=== PATIENT | male | born 1955 | race Hispanic/Latino ===

== ENCOUNTER 2018-03-05 10:44 | Observation (INO) | payer BC ==
[2018-03-05 10:54] VITALS: BMI 18.6
--- NOTE | 2018-03-05 11:12 | ED PDOC ---
Arrival/HPI - General Chief Complaint: Weakness/Neurological Deficit Time Seen by Provider: 03/05/18 10:50 Historian: Patient, Spouse - History of Present Illness Narrative History of Present Illness (Text): 03/05/18 11:00 62 year old male, whose PMH includes orthostatic hypotension, neuropathy, and ulcer colitis, who presents to the emergency department s/p syncope episode since prior to arrival. Patient reports he was using the bathroom and walked back to his room when he remembers waking up from the ground. Patient is currently complaining of right arm pain, left shoulder abrasion. and back side of head pain. Patient denies chest pain, shortness of breath, dizziness, nausea , vomiting, diarrhea, abdominal pain, hematuria, fever, or other complaints. PMD: Dr. Jones Mechanical Drafter: Dr. Diaz Neurologist: Dr. Swartz Urologist: Dr. Tomlinson Time/Duration: Prior to Arrival Symptom Onset: Sudden Context: Home Past Medical History - Provider Review Nursing Documentation Reviewed: Yes - Infectious Disease Hx of Infectious Diseases: None - Cardiac Hx Pacemaker: No - Pulmonary Hx Respiratory Disorders: No - Neurological Hx Neurological Disorder: No - HEENT Hx HEENT Disorder: No - Renal Hx Renal Disorder: No - Endocrine/Metabolic Hx Endocrine Disorders: No - Hematological/Oncological Hx Blood Transfusions: No Hx Blood Transfusion Reaction: No - Integumentary Hx Dermatological Disorder: No - Musculoskeletal/Rheumatological Hx Falls: No - Gastrointestinal Hx Gastrointestinal Disorders: No - Genitourinary/Gynecological Hx Genitourinary Disorders: No - Psychiatric Hx Substance Use: No - Anesthesia Hx Anesthesia Reactions: Yes (vomitting) Hx Malignant Hyperthermia: No - Suicidal Assessment Feels Threatened In Home Enviroment: No Family/Social History - Physician Review Nursing Documentation Reviewed: Yes Family/Social History: No Known Family HX Smoking Status: Former Smoker Hx Alcohol Use: No Hx Substance Use: No Allergies/Home Meds Allergies/Adverse Reactions: Allergies codeine Allergy (Intermediate, Verified 03/05/18 10:51) SWEATING,FEVERISH,VOMITING Home Medications: Home Meds Medication Instructions Recorded Confirmed Silodosin [Rapaflo] 8 mg PO DAILY 11/06/15 02/02/18 Prednisone [Apolonia] 5 mg PO DAILY 11/08/15 02/02/18 Review of Systems - Review of Systems Constitutional: absent: Fevers ENT: absent: Sinus Congestion Respiratory: absent: SOB Cardiovascular: Syncope. absent: Chest Pain Gastrointestinal: absent: Abdominal Pain, Vomiting Genitourinary Male: absent: Dysuria Musculoskeletal: Other (left shoulder abrasion, right arm pain, and back of head pain). absent: Back Pain Skin: absent: Rash Neurological: Headache. absent: Dizziness Physical Exam Vital Signs Reviewed: Yes Vital Signs Temp Pulse Resp BP Pulse Ox 03/05/18 13:49 92 H 18 132/72 100 03/05/18 11:33 97.7 F 85 18 119/85 97 03/05/18 11:04 119/85 03/05/18 10:45 97.9 F 86 20 100 Temperature: Afebrile Blood Pressure: Normal Pulse: Regular Respiratory Rate: Normal Appearance: Positive for: Well-Appearing, Non-Toxic, Comfortable Pain Distress: None Mental Status: Positive for: Alert and Oriented X 3 - Systems Exam Head: Present: Normocephalic, Tenderness (right sided tenderness with no ecchymosis). No: Ecchymosis Pupils: Present: PERRL Extroacular Muscles: Present: EOMI Conjunctiva: Present: Normal Mouth: Present: Moist Mucous Membranes Respiratory/Chest: Present: Clear to Auscultation, Good Air Exchange. No: Respiratory Distress, Accessory Muscle Use, Wheezes, Decreased Breath Sounds, Rales, Retracting, Rhonchi Cardiovascular: Present: Regular Rate and Rhythm, Normal S1, S2. No: Murmurs Abdomen: Present: Normal Bowel Sounds. No: Tenderness, Distention, Peritoneal Signs Upper Extremity: Present: Normal Inspection, Normal ROM, NORMAL PULSES, Neurovascularly Intact, Capillary Refill < 2s, Other (mild abrasion to left shoulder ). No: Cyanosis, Edema, Deformity Neurological: Present: GCS=15, CN II-XII Intact, Speech Normal, Motor Func Grossly Intact, Normal Sensory Function, Normal Cerebellar Funct, Memory Normal Skin: Present: Warm, Dry, Normal Color. No: Rashes Psychiatric: Present: Alert, Oriented x 3, Normal Insight, Normal Concentration Medical Decision Making ED Course and Treatment: 03/05/18 Impression: 62 year old male with right sided tenderness on head and mild abrasion on left shoulder complaining of syncope episode SONOGRAPHY TECHNICIAN. Differential Diagnosis included but are not limited to: Syncope: Vasovagal vs. Cardiac vs. Infectious Plan: -- EKG -- Chest X-ray -- Labs -- Urinalysis -- Reassess and disposition Progress Notes: EKG: Ordered, reviewed, and independently interpreted the EKG. Rate : 84 BPM Rhythm : NSR Interpretation : No ST-segment elevations or depressions, no T-wave inversions, normal intervals. 03/05/18 12:05 Chest X-ray: Impressions: No active disease 03/05/18 12:40 Patient is orthostatic positive. Will continue hydration. Case discussed with Dr. Diaz who is made aware of plan and agrees with admitting patient for observation for syncope. Case discussed with Dr. Mcpherson who will place on observation to her service. - Lab Interpretations Lab Results: 03/05/18 10:50 03/05/18 10:50 Lab Results 03/05/18 11:15: pO2 38, VBG pH 7.38, VBG pCO2 54.0, VBG HCO3 31.9 H, VBG Total CO2 33.6 H, VBG O2 Sat (Calc) 77.2 H, VBG Base Excess 5.3 H, VBG Potassium 4.1, Glucose 99, Lactate 1.8, FiO2 21.0, Sodium 138.0, Chloride 105.0, Venous Blood Potassium 4.1 03/05/18 10:55: POC Glucose (mg/dL) 111 H 03/05/18 10:50: Sodium 142, Potassium 4.8, Chloride 102, Carbon Dioxide 31, Anion Gap 14, BUN 10, Creatinine 0.7 L, Est GFR ( Amer) > 60, Est GFR ( Non-Af Amer) > 60, Random Glucose 122 H, Calcium 8.8, Magnesium 2.0, Total Bilirubin 0.6, AST 17 D, ALT 16, Alkaline Phosphatase 87, Lactate Dehydrogenase 390, Total Creatine Kinase 29 L, Troponin I < 0.01, Total Protein 6.4, Albumin 3.6, Globulin 2.8, Albumin/Globulin Ratio 1.3 03/05/18 10:50: PT 12.9 H, INR 1.12 H, APTT 29.6 03/05/18 10:50: WBC 4.6, RBC 4.43, Hgb 13.0 L, Hct 37.3 L, MCV 84.2, MCH 29.3, MCHC 34.9, RDW 13.4, Plt Count 179, MPV 9.3, Gran % 68.5 H, Lymph % (Auto) 25.3 , [place] % (Auto) 4.5, Eos % (Auto) 1.5, Baso % (Auto) 0.2, Gran # 3.16, Lymph # ( Auto) 1.2, [place] # (Auto) 0.2, Eos # (Auto) 0.1, Baso # (Auto) 0.01 I have reviewed the lab results: Yes - RAD Interpretation Radiology Orders: 03/05/18 11:03 CHEST PORTABLE [RAD] Stat Spinner Frame: Radiologist - EKG Interpretation Interpreted by ED Physician: Yes Type: 12 lead EKG - Medication Orders Current Medication Orders: Acetaminophen (Tylenol 325mg Tab) 650 mg PO Q6H PRN PRN Reason: Pain, Mild (1-3) Ondansetron HCl (Zofran Inj) 4 mg IVP Q4H PRN PRN Reason: Nausea/Vomiting Discontinued Medications Acetaminophen (Tylenol 325mg Tab) 650 mg PO STAT STA Stop: 03/05/18 11:24 Last Admin: 03/05/18 11:27 Dose: 650 mg MAR Pain/Vitals Document 03/05/18 11:27 [facility] (Rec: 03/05/18 11:28 [facility] [id number]) Pain Reassessment Is This A Pain ReAssessment? No Sleep Is patient sleeping during reassessment? No Presence of Pain Presence of Pain Yes Pain Scale Used Pain Scale Used Numeric Location Pain Location Body Site Shoulder Intensity 3 Scale Used Numeric Sodium Chloride (Sodium Chloride 0.9%) 1,000 mls @ 999 mls/hr IV .Q1H1M STA Stop: 03/05/18 13:45 Last Admin: 03/05/18 12:54 Dose: 999 mls/hr eMAR Start Stop Document 03/05/18 12:54 [facility] (Rec: 03/05/18 12:54 [facility] [id number]) Intravenous Solution Start Date 03/05/18 Start Time 12:54 End Date 03/05/18 End time 13:55 Total Infusion Time 61 - Scribe Statement The provider has reviewed the documentation as recorded by the Garcia Moscoso Provider Scribe Attestation: All medical record entries made by the Scribe were at my direction and personally dictated by me. I have reviewed the chart and agree that the record accurately reflects my personal performance of the history, physical exam, medical decision making, and the department course for this patient. I have also personally directed, reviewed, and agree with the discharge instructions and disposition. Disposition/Present on Arrival - Present on Arrival Any Indicators Present on Arrival: No History of DVT/PE: No History of Uncontrolled Diabetes: No Urinary Catheter: No History of Decub. Ulcer: No History Surgical Site Infection Following: None - Disposition Have Diagnosis and Disposition been Completed?: Yes Diagnosis: Syncope Disposition: HOSPITALIZED Disposition Time: 12:41 Patient Plan: Observation Patient Problems: Current Active Problems Problem Status Onset Syncope Acute Condition: FAIR
[2018-03-05 11:18] LABS: BASO # 0.01 K/mm3 (0.0-2.0); BASO % 0.2 % (0.0-3.0); EOS # 0.1 (0.0-0.7); EOS % 1.5 % (1.5-5.0); GRAN # 3.16 (1.4-6.5); GRAN % 68.5 % (50.0-68.0); LYMPH # 1.2 (1.2-3.4); LYMPH % 25.3 % (22.0-35.0); MEAN CELL VOLUME 84.2 fl (80.0-105.0); MEAN CORPUSCULAR HEMOGLOBIN 29.3 pg (25.0-35.0); MEAN CORPUSCULAR HGB CONC 34.9 g/dl (31.0-37.0); MEAN PLATELET VOLUME 9.3 fl (7.0-11.0); MONO # 0.2 (0.1-0.6); MONO % 4.5 % (1.0-6.0); RBC 4.43 10^6/uL (3.5-6.1); RED CELL DISTRIBUTION WIDTH 13.4 % (11.5-14.5); WHITE BLOOD COUNT 4.6 10^3/ul (4.5-11.0)
[2018-03-05 11:28] LABS: VENOUS BLOOD GAS BASE EXCESS 5.3 mmol/L (0.0-2.0); VENOUS BLOOD GAS PO2 38 mm/Hg (30-55); VENOUS BLOOD PH 7.38 (7.32-7.43)
[2018-03-05 11:29] LABS: INR 1.12 (0.93-1.08); PARTIAL THROMBOPLASTIN TIME 29.6 Seconds (25.1-36.5); PROTHROMBIN TIME 12.9 SECONDS (9.4-12.5)
[2018-03-05 11:33] LABS: ALB/GLOB RATIO 1.3 (1.1-1.8); ALBUMIN 3.6 g/dL (3.0-4.8); ALT/SGPT 16 U/L (7-56); AST/SGOT 17 U/L (17-59); BLOOD UREA NITROGEN 10 mg/dL (7-21); CALCIUM 8.8 mg/dL (8.4-10.5); GFR AFRICAN-AMERICAN > 60; GFR NON-AFRICAN AMERICAN > 60
[2018-03-05 11:44] LABS: TROPONIN I < 0.01 ng/mL
--- NOTE | 2018-03-05 12:06 | RAD ---
Date of service: 03/05/2018 HISTORY: syncope COMPARISON: No prior. FINDINGS: LUNGS: No active pulmonary disease. PLEURA: No significant pleural effusion identified, no pneumothorax apparent. CARDIOVASCULAR: Normal. OSSEOUS STRUCTURES: No significant abnormalities. VISUALIZED UPPER ABDOMEN: Normal. OTHER FINDINGS: None. IMPRESSION: No active disease.
[2018-03-05] MEDS ORDERED: Sodium Chloride 0.9% 1,000 ML IV STA (12:45)
--- NOTE | 2018-03-05 14:37 | CT ---
Date of service: 03/05/2018 PROCEDURE: CT HEAD WITHOUT CONTRAST. HISTORY: head injury COMPARISON: None available. TECHNIQUE: Axial computed tomography images were obtained through the head/brain without intravenous contrast. Radiation dose: Total exam DLP = 842 mGy-cm. This CT exam was performed using one or more of the following dose reduction techniques: Automated exposure control, adjustment of the mA and/or kV according to patient size, and/or use of iterative reconstruction technique. FINDINGS: HEMORRHAGE: No intracranial hemorrhage. BRAIN: No mass effect or edema. No atrophy or chronic microvascular ischemic changes. VENTRICLES: Unremarkable. No hydrocephalus. CALVARIUM: Unremarkable. PARANASAL SINUSES: There is a minimally displaced fracture of the posterior wall of the left maxillary sinus. There is a fluid level within the sinus. MASTOID AIR CELLS: Chronic right-sided mastoiditis OTHER FINDINGS: None. IMPRESSION: No acute intracranial findings. Fracture of the posterior wall of the left maxillary sinus with blood in the sinus
--- NOTE | 2018-03-05 15:53 | CP.PCM.HP ---
<Eugene Herrera - Last Filed: 03/06/18 15:30> History of Present Illness - History of Present Illness History of Present Illness: 62 y o male PMhx orthostatic hypotension, neuropathy, ulcerative colitis, prostate cancer, presents to the ED with his s/p fall. Pt states that he was home alone and was rising from the toilet after going to the bathroom. Pt states he was walking across to his bedroom and felt dizzy and thus fell forward on the L side of his face, hitting his head. Pt states that he lost consciousness for a few seconds. After incident, pt states he got up, called his who was 2 blocks away, and she thus came home and brought him to ED. Pt 's states that pt has been falling more frequently, and that this is his 4th fall this month. Pt was recently admitted to [facility] in January 2018 for dehydration. Pt has abrasion on L maxillary area, and upper L shoulder, and had nose bleed. Pt states he feels ok, denies any acute complaints. Pt's states that pt has been more fatigued lately over the past several mos. Pt was recently seen in clinic by PMD yesterday for cloudy, foul-smelling urine, and was given Ciprofloxacin to complete for 7 days, pt has been taking medication since yesterday. Pt denies headache, vision changes, tinnitus, fever, chills, chest pain, sob, n/v/d/c, abd pain, burning with urination, urinary frequency, or other symptoms. PMD: Dr. Houser GI: Dr. Beltran Neurology: Dr. Swartz Urologist: Dr. Tomlinson PMhx: Orthostatic hypotension, neuropathy, ulcerative colitis, prostate cancer PSurgHx: none Allergies: codeine Meds: Fludrocortisone, Ciprofloxacin, Mesalamine (rest unknown by pt and ) Fam hx: reviewed but not pertinent to hx Soc hx: former smoker, denies alcohol and illegal drug use 12 point ROS done and negative, otherwise as per HPI. Present on Admission - Present on Admission Any Indicators Present on Admission: No Review of Systems - Constitutional Constitutional: As Per HPI - EENT Eyes: absent: As Per HPI, Blind Spots, Blurred Vision, Change in Vision, Decreased Night Vision, Diplopia, Discharge, Dry Eye, Exophthalmos, Floaters, Irritation, Itchy Eyes, Loss of Peripheral Vision, Pain, Photophobia, Requires Corrective Lenses, Sees Flashes, Spots in Vision, Tunnel Vision, Other Visual Disturbances, Loss of Vision, Other Nose/Mouth/Throat: absent: As Per HPI, Epistaxis, Nasal Congestion, Nasal Discharge, Nasal Obstruction, Nasal Trauma, Nose Pain, Post Nasal Drip, Sinus Pain, Sinus Pressure, Bleeding Gums, Change in Voice, Dental Pain, Dry Mouth, Dysphagia, Halitosis, Hoarsness, Lip Swelling, Mouth Lesions, Mouth Pain, Odynophagia, Sore Throat, Throat Swelling, Tongue Swelling, Facial Pain, Neck Pain, Neck Mass, Other - Cardiovascular Cardiovascular: absent: As Per HPI, Acrocyanosis, Chest Pain, Chest Pain at Rest , Chest Pain with Activity, Claudication, Diaphoresis, Dyspnea, Dyspnea on Exertion, Edema, Irregular Heart Rhythm, Pain Radiating to Arm/Neck/Jaw, Leg Edema, Leg Ulcers, Lightheadedness, Orthopnea, Palpitations, Paroxysmal Nocturnal Dyspnea, Pedal Edema, Radiating Pain, Rapid Heart Rate, Slow Heart Rate, Syncope, Other - Respiratory Respiratory: absent: As Per HPI, Cough, Dyspnea, Hemoptysis, Dyspnea on Exertion , Wheezing, Snoring, Stridor, Pain on Inspiration, Chest Congestion, Excessive Mucous Production, Change in Mucous Color, Pain with Coughing, Other - Gastrointestinal Gastrointestinal: absent: As Per HPI, Abdominal Pain, Belching, Bloating, Change in Bowel Habits, Change in Stool Character, Coffee Ground Emesis, Constipation, Cramping, Diarrhea, Dyspepsia, Dysphagia, Early Satiety, Excessive Flatus, Fecal Incontinence, Heartburn, Hematemesis, Hematochezia, Loose Stools, Melena, Nausea, Odynophagia, Temesmus, Vomiting, Other Past Patient History - Infectious Disease Hx of Infectious Diseases: None - Past Social History Smoking Status: Former Smoker - CARDIAC Hx Pacemaker: No - PULMONARY Hx Respiratory Disorders: No - NEUROLOGICAL Hx Neurological Disorder: No - HEENT Hx HEENT Problems: No - RENAL Hx Chronic Kidney Disease: No - ENDOCRINE/METABOLIC Hx Endocrine Disorders: No - HEMATOLOGICAL/ONCOLOGICAL Hx Blood Transfusions: No Hx Blood Transfusion Reaction: No - INTEGUMENTARY Hx Dermatological Problems: No - MUSCULOSKELETAL/RHEUMATOLOGICAL Hx Falls: No - GASTROINTESTINAL Hx Gastrointestinal Disorders: No - GENITOURINARY/GYNECOLOGICAL Hx Genitourinary Disorders: No - PSYCHIATRIC Hx Substance Use: No - SURGICAL HISTORY Hx Surgeries: No - ANESTHESIA Hx Anesthesia Reactions: Yes (vomitting) Hx Malignant Hyperthermia: No Meds Allergies/Adverse Reactions: Allergies Allergy/AdvReac Type Severity Reaction Status Date / Time codeine Allergy Intermediate SWEATING,FE Verified 03/05/18 10:51 VERISH,VOMI TING Physical Exam - Constitutional Appears: Non-toxic, No Acute Distress, Older Than Stated Age - Head Exam Head Exam: ATRAUMATIC, NORMAL INSPECTION - ENT Exam ENT Exam: Mucous Membranes Moist, Normal Oropharynx Additional comments: Abrasion noted to L maxilla - Neck Exam Neck exam: Positive for: Full Rom, Normal Inspection Additional comments: Abrasion noted to left shoulder - Respiratory Exam Respiratory Exam: Clear to Auscultation Bilateral, NORMAL BREATHING PATTERN - Cardiovascular Exam Cardiovascular Exam: REGULAR RHYTHM, +S1, +S2 - GI/Abdominal Exam GI & Abdominal Exam: Normal Bowel Sounds, Soft - Extremities Exam Extremities exam: Positive for: normal capillary refill, normal inspection, pedal pulses present - Back Exam Back exam: FULL ROM, NORMAL INSPECTION - Neurological Exam Neurological exam: Alert, CN II-XII Intact, Normal Gait, Oriented x3, Reflexes Normal Additional comments: Motor and sensation intact, no tremor noted, neg Romberg sign, no dysmetria b/l - Psychiatric Exam Psychiatric exam: Normal Affect, Normal Mood - Skin Skin Exam: Dry, Intact, Normal Color, Warm Results - Vital Signs Recent Vital Signs: Last Vital Signs Temp 97.7 F 03/05/18 11:33 Pulse 92 H 03/05/18 13:49 Resp 18 03/05/18 13:49 BP 132/72 03/05/18 13:49 Pulse Ox 100 03/05/18 13:49 - Labs Result Diagrams: 03/06/18 06:20 03/06/18 06:20 Assessment & Plan - Assessment and Plan (Free Text) Assessment: 62 y o male PMhx orthostatic hypotension, neuropathy, ulcerative colitis, prostate cancer, presents to the ED with his s/p fall. Plan: Syncopal episode s/p fall Likely 2/2 pt's hx of orthostatic hypotension Not likely 2/2 seizure due to no post-ictal state reported, no reported jerking movement Not likely 2/2 CVA/TIA due to no focal deficits on neuro exam, no deficits noted during episode Unable to get orthostatic hypotension on vitals in ED due to pt being hydrated with IVF Cardio consulted: gerard Garcia appreciated Pending carotid doppler Vitals stable, pt asymptomatic at this time, continue to monitor CT head negative for acute bleed C/w fludrocortisone 0.1 mg daily F/u PT and OT Maxillary sinus fx CT head: minimally displaced fx of posterior wall of L maxillary sinus ED contacted [facility] for OMFS consult: ED attending spoke with OMFS resident Dr. Magdaleno, who is aware of the pt and recommended 1 wk f/u as outpatient after hospital d/c Pt asymptomatic in affected area, continue to monitor Hx UTI U/a pending Hx ulcerative colitis C/w home med apriso mesalamine 0.375 g daily DVT ppx/SCDs: Protonix/Lovenox Pt seen, examined with, and plan d/w Dr. Flores, attending Eugene Herrera DO PGY-1, Supervisor Dials Pager #[phone] <Bryanna Flores - Last Filed: 03/07/18 15:01> Results - Vital Signs Recent Vital Signs: Last Vital Signs Temp 98 F 03/07/18 12:00 Pulse 88 03/07/18 14:00 Resp 17 03/07/18 12:00 BP 141/87 03/07/18 12:00 Pulse Ox 95 03/07/18 06:00 - Labs Result Diagrams: 03/07/18 06:30 03/07/18 06:45 Labs: Laboratory Results - last 24 hr 03/07/18 03/07/18 06:30 06:45 WBC 4.3 L RBC 3.56 Hgb 10.5 L Hct 29.8 L MCV 83.7 MCH 29.5 MCHC 35.2 RDW 13.3 Plt Count 135 MPV 9.4 Gran % 60.6 Lymph % (Auto) 30.0 [place] % (Auto) 6.6 H Eos % (Auto) 2.6 Baso % (Auto) 0.2 Gran # 2.58 Lymph # (Auto) 1.3 [place] # (Auto) 0.3 Eos # (Auto) 0.1 Baso # (Auto) 0.01 Sodium 141 Potassium 3.7 Chloride 108 H Carbon Dioxide 28 Anion Gap 9 L BUN 5 L Creatinine 0.6 L Est GFR ( Amer) > 60 Est GFR (Non-Af Amer) > 60 Random Glucose 90 Calcium 7.8 L Phosphorus 3.1 Magnesium 1.9 Total Bilirubin 0.6 AST 17 ALT 25 Alkaline Phosphatase 69 Total Protein 5.2 L Albumin 2.7 L Globulin 2.5 Albumin/Globulin Ratio 1.1 Attending/Attestation - Attestation I have personally seen and examined this patient.: Yes I have fully participated in the care of the patient.: Yes I have reviewed all pertinent clinical information: Yes Notes (Text): 03/07/18 14:55 Medical record note made by the resident after discussion with my direction and input after the patient was personally seen and examined by me. I have reviewed the chart and agree that the record accurately reflects by personal performance of the history, physical exam, data review, and medical decision-making, in the course for the patient. I have also personally directed the plan of care. 62 y o male PMH orthostatic hypotension, neuropathy, ulcerative colitis, prostate cancer, and non compliance with medication , presents to the ED with his wifewith history of fall and lose of consciousness. Pt states that he was home alone and was rising from the toilet after going to the bathroom.There nis no focal deficit.CT scan of head is negative.The etiology is likely due to orthostatic hypotension. We will admit patient in telemetery, will monitor Neuri check , will repeat orthostatic.We will also get physical therapy evaluation.
[2018-03-05] MEDS: Sodium Chloride 0.9% 1,000 ML IV SCH (16:22)
[2018-03-05] MEDS ORDERED: Pneumococcal 23-Valent Vaccine IM ONE (17:21)
--- NOTE | 2018-03-05 17:31 | CARD ---
APPROVED REPORT Date of service: 03/05/2018 EKG Measurement Heart [id number] <Conclusion> Sinus rhythm with premature atrial complexes Otherwise normal ECG
--- NOTE | 2018-03-06 00:45 | CON ---
DATE: 03/05/2018 HISTORY OF PRESENT ILLNESS: The patient in room 267, bed 2. REASON FOR CONSULTATION: Multiple falls and syncope, postural hypotension, history of neuropathy and colitis. HISTORY OF PRESENT ILLNESS: The patient is a 62-year-old male, known case of colitis and neuropathy. He had multiple falls in recent days and today also he had syncopal episode. The patient denies any chest pain, shortness of breath, palpitation with these episodes. The patient states when he stands up, he feels very dizzy and unsteady walk. The patient has history of prostate laser surgery for enlarged prostate, but recently also was found to have abnormal nodule on the prostate for which biopsy is being planned. PAST MEDICAL HISTORY: Positive for colitis, neuropathy. Recently, the patient was found to have postural hypotension. The patient had multiple falls, prostate laser surgery for enlarged prostate. PERSONAL HISTORY: Used to smoke 2 packs until 20 years ago. Denies drinking. ALLERGIES: THE PATIENT IS ALLERGIC TO CODEINE. PHYSICAL EXAMINATION: VITAL SIGNS: Blood pressure 132/72, respirations 18, pulse 85, temperature 97.7. I took blood pressure in three positions. The patient's blood pressure lying down 132/78, sitting 101/67, standing 76/41 and the patient unsteady and dizzy. HEENT: Eyes: Pupils normal. Conjunctivae normal. Nose and throat normal. NECK: JVP low. Carotid equal. Thorax AP diameter normal. LUNGS: Clear. CARDIOVASCULAR: S1, S2. ABDOMEN: Soft, nontender. No organomegaly. Bowel sounds normal. EXTREMITIES: No clubbing, no cyanosis. LABORATORY DATA: WBC 4.6, hemoglobin 13, hematocrit 37.3, platelet 179. Sodium 142, potassium 4.8, BUN 10, creatinine 0.7, random sugar 111. Another random sugar 122. Troponin less than 0.01. Total protein and albumin normal. Chest x-ray: No active disease. EKG shows sinus rhythm. CAT scan of the head shows fracture of the posterior wall of the left maxillary sinus with blood in the sinus. DIAGNOSES: Severe postural hypotension, multiple falls and syncopal episodes, history of colitis, neuropathy. On CAT scan, fracture of the left maxillary sinus. Nodule on the prostate, history of laser surgery for enlarged prostate in the past. The patient was also told to have borderline diabetes. PLAN: We will start the patient on normal saline at 100 mL an hour and we will start on Florinef 0.2 mg p.o. stat and daily. We will monitor heart rate and blood pressure in 3 positions everyday and we will follow with you. Echo has been already ordered. Bryanna Osuna MD
[2018-03-06] MEDS: Sodium Chloride 0.9% 1,000 ML IV SCH ×4 (02:21→21:46)
[2018-03-06 07:03] LABS: BASO # 0.02 K/mm3 (0.0-2.0); BASO % 0.4 % (0.0-3.0); EOS # 0.1 (0.0-0.7); EOS % 1.6 % (1.5-5.0); GRAN # 3.24 (1.4-6.5); GRAN % 66.2 % (50.0-68.0); HEMOGLOBIN 10.9 g/dL (14.0-18.0); LYMPH # 1.2 (1.2-3.4); LYMPH % 25.3 % (22.0-35.0); MEAN CELL VOLUME 84.5 fl (80.0-105.0); MEAN CORPUSCULAR HEMOGLOBIN 29.1 pg (25.0-35.0); MEAN CORPUSCULAR HGB CONC 34.4 g/dl (31.0-37.0); MEAN PLATELET VOLUME 9.5 fl (7.0-11.0); MONO # 0.3 (0.1-0.6); MONO % 6.5 % (1.0-6.0); RBC 3.75 10^6/uL (3.5-6.1); RED CELL DISTRIBUTION WIDTH 13.3 % (11.5-14.5); WHITE BLOOD COUNT 4.9 10^3/ul (4.5-11.0)
[2018-03-06 07:26] LABS: ALB/GLOB RATIO 1.1 (1.1-1.8); ALBUMIN 2.8 g/dL (3.0-4.8); ALT/SGPT 21 U/L (7-56); AST/SGOT 17 U/L (17-59); BLOOD UREA NITROGEN 8 mg/dL (7-21); CALCIUM 7.9 mg/dL (8.4-10.5); GFR AFRICAN-AMERICAN > 60; GFR NON-AFRICAN AMERICAN > 60; HDL CHOLESTEROL 37 mg/dL (29-60); LDL CHOLESTEROL 63 mg/dL (0-129)
--- NOTE | 2018-03-06 16:25 | US ---
PROCEDURE: Bilateral carotid artery duplex ultrasound HISTORY: Carotid stenosis PHYSICIAN(S): Michael Watson MD. TECHNIQUE: Duplex sonography and color-flow Doppler were used to evaluate the carotid bifurcations and limited segments of the vertebral arteries bilaterally. FINDINGS: There is mild smooth heterogeneous plaque noted at the carotid bifurcations bilaterally. The peak systolic velocity in the proximal right internal carotid artery is 69 cm/sec. This corresponds to a 20 to 39% proximal right ICA stenosis. Normal systolic velocities are noted in the proximal right external carotid artery. There is antegrade flow in the right vertebral artery. The peak systolic velocity in the proximal left internal carotid artery is 70 cm/sec. This corresponds to a 20 to 39% proximal left ICA stenosis. Normal systolic velocities are noted in the proximal left external carotid artery. There is antegrade flow in the left vertebral artery. IMPRESSION: 1. Bilateral 20-39% proximal ICA stenoses. 2. Antegrade flow in both vertebral arteries.
--- NOTE | 2018-03-06 17:17 | CP.PCM.PN ---
<Arvin Chan - Last Filed: 03/06/18 16:57> Subjective - Date & Time of Evaluation Date of Evaluation: 03/06/18 Time of Evaluation: 16:57 - Subjective Subjective: Arvin Chan DO - PGY1 IM Assistant Education Director - Medicine Progress Note Patient was seen this Am at bedside; stable voicing no complaints. Did not complain of any episodes of dizziness throughout day; however did c/o nausea in the AM. Remainder ROS negative. Later in evening pt. was vocalizing that he was ready to leave; explained to patient he was not medically stable for DC given his orthostatic findings; and his high risk for fall. Pt. Family member and Nurse Scott were present at bedside as well. Objective - Vital Signs/Intake and Output Vital Signs (last 24 hours): Temp Pulse Resp BP Pulse Ox 98.5 F 78 20 75/45 L 97 03/06/18 11:46 03/06/18 14:00 03/06/18 11:46 03/06/18 11:46 03/06/18 00:01 Intake and Output: 03/06/18 03/06/18 06:59 18:59 Intake Total 180 Output Total 50 Balance 130 - Medications Medications: Current Medications Acetaminophen (Tylenol 325mg Tab) 650 mg PO Q6H PRN PRN Reason: Pain, Mild (1-3) Famotidine (Pepcid) 40 mg PO HS [facility] Last Admin: 03/05/18 21:35 Dose: 40 mg Fludrocortisone Acetate (Florinef) 0.2 mg PO DAILY [facility] Last Admin: 03/06/18 10:31 Dose: 0.2 mg Sodium Chloride (Sodium Chloride 0.9%) 1,000 mls @ 100 mls/hr IV .Q10H [facility] Last Admin: 03/06/18 12:23 Dose: 100 mls/hr Midodrine (Proamatine) 5 mg PO BID [facility] Mesalamine [Apriso] ((Home Med)) 4 cap PO DAILY [facility] Ondansetron HCl (Zofran Inj) 4 mg IVP Q4H PRN PRN Reason: Nausea/Vomiting - Labs Labs: 03/06/18 06:20 03/06/18 06:20 PT 12.9 SECONDS (9.4-12.5) H 03/05/18 10:50 INR 1.12 (0.93-1.08) H 03/05/18 10:50 APTT 29.6 Seconds (25.1-36.5) 03/05/18 10:50 - Constitutional Appears: Well, Non-toxic, No Acute Distress - Head Exam Head Exam: ATRAUMATIC, NORMOCEPHALIC - ENT Exam ENT Exam: Mucous Membranes Moist, Normal Exam - Respiratory Exam Respiratory Exam: Clear to Ausculation Bilateral, NORMAL BREATHING PATTERN. absent: Rhonchi, Wheezes, Respiratory Distress - Cardiovascular Exam Cardiovascular Exam: RRR, +S1, +S2 - GI/Abdominal Exam GI & Abdominal Exam: Soft. absent: Tenderness - Extremities Exam Extremities Exam: Normal Inspection Additional comments: TP/DP 1+ BL - Neurological Exam Neurological Exam: Alert, Awake, CN II-XII Intact, Oriented x3 Additional comments: Fine intention tremor noted; mild dysmetria on finger to nose testing BL - Psychiatric Exam Psychiatric exam: Normal Affect, Normal Mood - Skin Skin Exam: Dry, Intact, Warm Assessment and Plan - Assessment and Plan (Free Text) Assessment: 62 y o male PMhx orthostatic hypotension, neuropathy, ulcerative colitis, prostate cancer, presents to the ED with his s/p fall. Plan: Fall 2/[address] head negative for acute bleed Bedside Orthostatics postive: [id number] Carotid Doppler - 20-39% stenosis BL; Anterograde vertebral artery flow Vitals stable; pt. remains asymptomatic throughout day; Pt. started on 0.2mg Fludrocortisone as per cardiology Resumed pt. Midodrine 5mg BID Pt. ambulated well throughout the unit w/ no c/o dizziness or unsteadiness Cont IVF NS 100mls/ hr Echo Report pending Cardio Following Dr. Osuna Maxillary sinus fx CT head: minimally displaced fx of posterior wall of L maxillary sinus ED contacted [facility] for OMFS consult: ED attending spoke with OMFS resident Dr. Magdaleno, who is aware of the pt and recommended 1 wk f/u as outpatient after hospital d/c Pt asymptomatic in affected area, continue to monitor Hx UTI U/a pending Hx ulcerative colitis C/w home med apriso mesalamine 0.375 g daily DVT/ GI PPX: SCD/ Famotidine DISPO: Once medically optimized, pt. to be discharged to home w/ home PT Pt seen, examined with, and plan d/w Dr. Flores, attending <Bryanna Flores - Last Filed: 03/07/18 15:04> Objective - Vital Signs/Intake and Output Vital Signs (last 24 hours): Temp Pulse Resp BP Pulse Ox 98 F 88 17 141/87 95 03/07/18 12:00 03/07/18 14:00 03/07/18 12:00 03/07/18 12:00 03/07/18 06:00 Intake and Output: 03/07/18 03/07/18 06:59 18:59 Intake Total 1380 Balance 1380 - Medications Medications: Current Medications Acetaminophen (Tylenol 325mg Tab) 650 mg PO Q6H PRN PRN Reason: Pain, Mild (1-3) Famotidine (Pepcid) 40 mg PO HS [facility] Last Admin: 03/06/18 21:45 Dose: 40 mg Fludrocortisone Acetate (Florinef) 0.2 mg PO DAILY [facility] Last Admin: 03/07/18 10:00 Dose: 0.2 mg Sodium Chloride (Sodium Chloride 0.9%) 1,000 mls @ 100 mls/hr IV .Q10H [facility] Last Admin: 03/07/18 07:54 Dose: 100 mls/hr Midodrine (Proamatine) 5 mg PO BID [facility] Last Admin: 03/07/18 10:00 Dose: 5 mg Mesalamine [Apriso] ((Home Med)) 4 cap PO DAILY [facility] Last Admin: 03/07/18 10:04 Dose: Not Given Ondansetron HCl (Zofran Inj) 4 mg IVP Q4H PRN PRN Reason: Nausea/Vomiting - Labs Labs: 03/07/18 06:30 03/07/18 06:45 PT 12.9 SECONDS (9.4-12.5) H 03/05/18 10:50 INR 1.12 (0.93-1.08) H 03/05/18 10:50 APTT 29.6 Seconds (25.1-36.5) 03/05/18 10:50 Attending/Attestation - Attestation I have personally seen and examined this patient.: Yes I have fully participated in the care of the patient.: Yes I have reviewed all pertinent clinical information, including history, physical exam and plan: Yes Notes (Text): 03/07/18 15:02 Medical record note made by the resident after discussion with my direction and input after the patient was personally seen and examined by me. I have reviewed the chart and agree that the record accurately reflects by personal performance of the history, physical exam, data review, and medical decision-making, in the course for the patient. I have also personally directed the plan of care. 62 y o male PMH orthostatic hypotension, neuropathy, ulcerative colitis, prostate cancer, and non compliance with medication was admitted with his with history of fall and lose of consciousness. Pt states that he was home alone and was rising from the toilet after going to the bathroom.There is no focal deficit.CT scan of head is negative.The etiology is likely due to orthostatic hypotension. Patient is still orthostatic, has been started on Fludocortisone , patient was not compliance with his Midodrine.We will resume. Telemetry is negative for any arrythmia. Case was discussed with Cardiology.
[2018-03-07 06:50] VITALS: O2SAT 95
[2018-03-07 07:27] LABS: BASO # 0.01 K/mm3 (0.0-2.0); BASO % 0.2 % (0.0-3.0); EOS # 0.1 (0.0-0.7); EOS % 2.6 % (1.5-5.0); GRAN # 2.58 (1.4-6.5); GRAN % 60.6 % (50.0-68.0); HEMOGLOBIN 10.5 g/dL (14.0-18.0); LYMPH # 1.3 (1.2-3.4); MEAN CELL VOLUME 83.7 fl (80.0-105.0); MEAN CORPUSCULAR HEMOGLOBIN 29.5 pg (25.0-35.0); MEAN CORPUSCULAR HGB CONC 35.2 g/dl (31.0-37.0); MEAN PLATELET VOLUME 9.4 fl (7.0-11.0); MONO # 0.3 (0.1-0.6); MONO % 6.6 % (1.0-6.0); RBC 3.56 10^6/uL (3.5-6.1); RED CELL DISTRIBUTION WIDTH 13.3 % (11.5-14.5); WHITE BLOOD COUNT 4.3 10^3/ul (4.5-11.0)
[2018-03-07] MEDS: Sodium Chloride 0.9% 1,000 ML IV SCH (07:54)
[2018-03-07 08:04] LABS: ALB/GLOB RATIO 1.1 (1.1-1.8); ALBUMIN 2.7 g/dL (3.0-4.8); ALT/SGPT 25 U/L (7-56); AST/SGOT 17 U/L (17-59); BLOOD UREA NITROGEN 5 mg/dL (7-21); CALCIUM 7.8 mg/dL (8.4-10.5); GFR AFRICAN-AMERICAN > 60; GFR NON-AFRICAN AMERICAN > 60
[2018-03-07] MEDS ORDERED: MESALAMINE PO SCH (10:00)
--- NOTE | 2018-03-07 13:22 | PN ---
DATE: 03/07/2018 CARDIOLOGY FOLLOWUP SUBJECTIVE: The patient's dizziness is a little better, but he remains significantly orthostatic. Blood pressure goes from 130 to 68 in changing positions. PHYSICAL EXAMINATION: NECK: Negative JVD. LUNGS: Without rales. HEART: Reveals S1, S2. EXTREMITIES: Without edema. LABORATORY DATA: Hemoglobin is 10.5. Chemistries, BUN and creatinine are unremarkable. IMPRESSION: 1. Orthostatic hypotension. 2. Chronic obstructive pulmonary disease. 3. Dizziness. 4. Postural hypotension. PLAN: Given these findings, we will continue on the Florinef. IV fluids have been given. We will continue to monitor pressures. In the morning, we will return the case back to the care of Dr. Osuna. Michael Olmstead MD
[2018-03-07 13:40] VITALS: BP 141/87; RESP 17; TEMP 98
[2018-03-07 14:50] VITALS: PULSE 88
--- NOTE | 2018-03-07 19:03 | CP.PCM.DIS ---
<Arvin Chan - Last Filed: 03/07/18 17:59> Provider - Provider Date of Admission: 03/05/18 12:41 Attending physician: Bryanna Flores MD Primary care physician: Davi Houser MD Consults: Cardio - Dr. Osuna Neuro - Dr. Whitaker Time Spent in preparation of Discharge (in minutes): 40 Diagnosis - Discharge Diagnosis (1) Syncope due to orthostatic hypotension Status: Acute Priority: High (2) Maxillary sinus fracture Status: Acute Priority: High (3) Ulcerative colitis Status: Chronic Priority: Low Hospital Course - Lab Results Lab Results: Most Recent Lab Values WBC 4.3 10^3/ul (4.5-11.0) L 03/07/18 06:30 RBC 3.56 10^6/uL (3.5-6.1) 03/07/18 06:30 Hgb 10.5 g/dL (14.0-18.0) L 03/07/18 06:30 Hct 29.8 % (42.0-52.0) L 03/07/18 06:30 MCV 83.7 fl (80.0-105.0) 03/07/18 06:30 MCH 29.5 pg (25.0-35.0) 03/07/18 06:30 MCHC 35.2 g/dl (31.0-37.0) 03/07/18 06:30 RDW 13.3 % (11.5-14.5) 03/07/18 06:30 Plt Count 135 10^3/uL (120.0-450.0) 03/07/18 06:30 MPV 9.4 fl (7.0-11.0) 03/07/18 06:30 Gran % 60.6 % (50.0-68.0) 03/07/18 06:30 Lymph % (Auto) 30.0 % (22.0-35.0) 03/07/18 06:30 Morrow % (Auto) 6.6 % (1.0-6.0) H 03/07/18 06:30 Eos % (Auto) 2.6 % (1.5-5.0) 03/07/18 06:30 Baso % (Auto) 0.2 % (0.0-3.0) 03/07/18 06:30 Gran # 2.58 (1.4-6.5) 03/07/18 06:30 Lymph # (Auto) 1.3 (1.2-3.4) 03/07/18 06:30 Morrow # (Auto) 0.3 (0.1-0.6) 03/07/18 06:30 Eos # (Auto) 0.1 (0.0-0.7) 03/07/18 06:30 Baso # (Auto) 0.01 K/mm3 (0.0-2.0) 03/07/18 06:30 PT 12.9 SECONDS (9.4-12.5) H 03/05/18 10:50 INR 1.12 (0.93-1.08) H 03/05/18 10:50 APTT 29.6 Seconds (25.1-36.5) 03/05/18 10:50 pO2 38 mm/Hg (30-55) 03/05/18 11:15 VBG pH 7.38 (7.32-7.43) 03/05/18 11:15 VBG pCO2 54.0 (40-60) 03/05/18 11:15 VBG HCO3 31.9 mmol/l (21-28) H 03/05/18 11:15 VBG Total CO2 33.6 mmol.L (22-28) H 03/05/18 11:15 VBG O2 Sat (Calc) 77.2 % (40-65) H 03/05/18 11:15 VBG Base Excess 5.3 mmol/L (0.0-2.0) H 03/05/18 11:15 VBG Potassium 4.1 mmol/L (3.6-5.2) 03/05/18 11:15 Sodium 138.0 mmol/L (132-148) 03/05/18 11:15 Chloride 105.0 mmol/L (98-107) 03/05/18 11:15 Glucose 99 mg/dl (75-110) 03/05/18 11:15 Lactate 1.8 mmol/L (0.7-2.1) 03/05/18 11:15 FiO2 21.0 % 03/05/18 11:15 Sodium 141 mmol/L (132-148) 03/07/18 06:45 Potassium 3.7 mmol/L (3.6-5.0) 03/07/18 06:45 Chloride 108 mmol/L (98-107) H 03/07/18 06:45 Carbon Dioxide 28 mmol/L (21-33) 03/07/18 06:45 Anion Gap 9 (10-20) L 03/07/18 06:45 BUN 5 mg/dL (7-21) L 03/07/18 06:45 Creatinine 0.6 mg/dl (0.8-1.5) L 03/07/18 06:45 Est GFR ( Amer) > 60 03/07/18 06:45 Est GFR (Non-Af Amer) > 60 03/07/18 06:45 POC Glucose (mg/dL) 111 mg/dL (65-110) H 03/05/18 10:55 Random Glucose 90 mg/dL (70-110) 03/07/18 06:45 Calcium 7.8 mg/dL (8.4-10.5) L 03/07/18 06:45 Phosphorus 3.1 mg/dL (2.5-4.5) 03/07/18 06:45 Magnesium 1.9 mg/dL (1.7-2.2) 03/07/18 06:45 Total Bilirubin 0.6 mg/dL (0.2-1.3) 03/07/18 06:45 AST 17 U/L (17-59) 03/07/18 06:45 ALT 25 U/L (7-56) 03/07/18 06:45 Alkaline Phosphatase 69 U/L (38-126) 03/07/18 06:45 Lactate Dehydrogenase 390 U/L (333-699) 03/05/18 10:50 Total Creatine Kinase 29 U/L (35-230) L 03/05/18 10:50 Troponin I < 0.01 ng/mL 03/05/18 10:50 Total Protein 5.2 g/dL (5.8-8.3) L 03/07/18 06:45 Albumin 2.7 g/dL (3.0-4.8) L 03/07/18 06:45 Globulin 2.5 gm/dL 03/07/18 06:45 Albumin/Globulin Ratio 1.1 (1.1-1.8) 07/15/18 06:45 Triglycerides 78 mg/dL (35-160) 03/06/18 06:20 Cholesterol 122 mg/dL (130-200) L 03/06/18 06:20 LDL Cholesterol Direct 63 mg/dL (0-129) 03/06/18 06:20 HDL Cholesterol 37 mg/dL (29-60) 03/06/18 06:20 Venous Blood Potassium 4.1 mmol/L (3.6-5.2) 03/05/18 11:15 - Hospital Course Hospital Course: Arvinsofia Chan - PGY1 Internal Medicine Fuse Spooler - Discharge Summary 62 y o male PMhx orthostatic hypotension, neuropathy, ulcerative colitis, prostate cancer, presents to the ED on 03/05 with his s/p fall. Pt states that he was home alone and was rising from the toilet after going to the bathroom. Pt states he was walking across to his bedroom and felt dizzy and thus fell forward on the L side of his face, hitting his head. Pt states that he lost consciousness for a few seconds. After incident, pt states he got up, called his who was 2 blocks away, and she thus came home and brought him to ED. Pt's states that pt has been falling more frequently, and that this is his 4th fall this month. Pt was recently admitted to [facility] in January 2018 for dehydration. Pt has abrasion on L maxillary area, and upper L shoulder , and had nose bleed. Pt states he feels ok, denies any acute complaints. Pt's states that pt has been more fatigued lately over the past several mos. Pt was recently seen in clinic by PMD yesterday for cloudy, foul-smelling urine, and was given Ciprofloxacin to complete for 7 days, pt has been taking medication since yesterday. Pt denies headache, vision changes, tinnitus, fever , chills, chest pain, sob, n/v/d/c, abd pain, burning with urination, urinary frequency, or other symptoms. In the ED, EKG showed SR w/ PAC. Patient started on IVF, started on fludrocortisone 0.1mg daily, CT head showed no acute intracranial pathology, did show L sided maxillary fracture. [facility] OMFS consulted; reccomended outpt follow up in 1 week. Carotid U/S showed 20-39% BL stenosis, and anterograde vertebral artery flow. On 03/06, Pt. was asymptomatic throughout day, however orthostatics revealed SPB drop of 55 from lying to standing. he was Resumed on his home midodrine 5mg, and inc. fludrocortisone to 0.2 mg, echo performed still pending read, pt was ambulated throughout unit w/o any sx with nurse. PT saw patient and recommended to DC pt to TCU for gait training and gait unsteadiness; however pt. refused and PT determined best outcome would be to DC home w/ services. Pt. voiced complaints that he wanted to leave; however patient was advised against leaving , and risks of leaving without proper medical workup were explained. Patient agreed to stay. On 03/07, Pt was seen at bedside, this AM w/o any issues reported overnight; and no complaints reported this AM. VSS, and AM Orthostatics AM revealed a drop 60 w/o any symptoms. Labs were unremarkable. Upon ambulation, patient was noted to have unsteady gait, and subsequently could not ambulate without looking at his feet. He denied any light headedness or dizziness. Furhter neurolgic workup revealed moderate neuropathy in lower extremities. Orthostatics reevaluated and revealed a SBP drop of 35 from sit to stand. Patient was advised to stay given his high risk of fall, and lack of PT services over the weekend. He subsequently refused to stay, and thus signed out AMA. Prior to signing out AMA the following benefits / risks were discussed with the patient in regards to continuing hospitalization: Benefits of continuing hospitalization: Further workup would yield benefits of close monitoring of orthostatic BP, fall prevention, and medical optimization. Risks of leaving AMA: Increased risk of falls, , disability, and paralysis. The necessity and importance of following up with primary care physician, truck bracer, OMFS, and neurologist after AMA were discussed as well. Pt. was given prescriptions for florinef 0.2mg QD, and told to continue his Apriso 4 cap QD. Pt. was educated on his condition; told to stand slowly, and ambulate with use of walker. Pt was told he was at high risk of falls, and subsequent intracranial bleeds. He was told to return to nearest ER if symptoms worsen. He agreed with the instructions provided above, and verbalized understanding of the risks associated with signing out against medical advice. - Date & Time of H&P Date of H&P: 03/05/18 Time of H&P: 15:48 Discharge Exam - Head Exam Head Exam: NORMOCEPHALIC Additional comments: L sided periorbital echymosis; - Eye Exam Eye Exam: EOMI, Normal appearance, PERRL. absent: Scleral icterus Additional comments: Light sensitivity - ENT Exam ENT Exam: Mucous Membranes Moist, Normal Exam - Respiratory Exam Respiratory Exam: Clear to PA & Lateral, NORMAL BREATHING PATTERN, UNREMARKABLE. absent: Rhonchi, Wheezes - Cardiovascular Exam Cardiovascular Exam: REGULAR RHYTHM, RRR, +S1, +S2 - GI/Abdominal Exam GI & Abdominal Exam: Soft, Unremarkable. absent: Tenderness - Extremities Exam Extremities exam: pedal pulses present (2+ DP/ TP BL) - Back Exam Back exam: absent: CVA tenderness (L), CVA tenderness (R) - Neurological Exam Neurological exam: Alert, CN II-XII Intact, Oriented x3 - Skin Skin Exam: Dry, Intact, Warm Discharge Plan - Discharge Medications Prescriptions: Fludrocortisone [Florinef] 0.2 mg PO DAILY #15 tab - Follow Up Plan Condition: FAIR Disposition: AGAINST MEDICAL ADVICE Instructions: Syncope (ED) Referrals: Davi Houser MD [Primary Care Provider] - <Bryanna Flores - Last Filed: 03/08/18 16:37> Provider - Provider Date of Admission: 03/05/18 12:41 Attending physician: Bryanna Flores MD Primary care physician: Davi Houser MD Hospital Course - Lab Results Lab Results: Most Recent Lab Values WBC 4.3 10^3/ul (4.5-11.0) L 03/07/18 06:30 RBC 3.56 10^6/uL (3.5-6.1) 03/07/18 06:30 Hgb 10.5 g/dL (14.0-18.0) L 03/07/18 06:30 Hct 29.8 % (42.0-52.0) L 03/07/18 06:30 MCV 83.7 fl (80.0-105.0) 03/07/18 06:30 MCH 29.5 pg (25.0-35.0) 03/07/18 06:30 MCHC 35.2 g/dl (31.0-37.0) 03/07/18 06:30 RDW 13.3 % (11.5-14.5) 03/07/18 06:30 Plt Count 135 10^3/uL (120.0-450.0) 03/07/18 06:30 MPV 9.4 fl (7.0-11.0) 03/07/18 06:30 Gran % 60.6 % (50.0-68.0) 03/07/18 06:30 Lymph % (Auto) 30.0 % (22.0-35.0) 03/07/18 06:30 Morrow % (Auto) 6.6 % (1.0-6.0) H 03/07/18 06:30 Eos % (Auto) 2.6 % (1.5-5.0) 03/07/18 06:30 Baso % (Auto) 0.2 % (0.0-3.0) 03/07/18 06:30 Gran # 2.58 (1.4-6.5) 03/07/18 06:30 Lymph # (Auto) 1.3 (1.2-3.4) 03/07/18 06:30 Morrow # (Auto) 0.3 (0.1-0.6) 03/07/18 06:30 Eos # (Auto) 0.1 (0.0-0.7) 03/07/18 06:30 Baso # (Auto) 0.01 K/mm3 (0.0-2.0) 03/07/18 06:30 PT 12.9 SECONDS (9.4-12.5) H 03/05/18 10:50 INR 1.12 (0.93-1.08) H 03/05/18 10:50 APTT 29.6 Seconds (25.1-36.5) 03/05/18 10:50 pO2 38 mm/Hg (30-55) 03/05/18 11:15 VBG pH 7.38 (7.32-7.43) 03/05/18 11:15 VBG pCO2 54.0 (40-60) 03/05/18 11:15 VBG HCO3 31.9 mmol/l (21-28) H 03/05/18 11:15 VBG Total CO2 33.6 mmol.L (22-28) H 03/05/18 11:15 VBG O2 Sat (Calc) 77.2 % (40-65) H 03/05/18 11:15 VBG Base Excess 5.3 mmol/L (0.0-2.0) H 03/05/18 11:15 VBG Potassium 4.1 mmol/L (3.6-5.2) 03/05/18 11:15 Sodium 138.0 mmol/L (132-148) 03/05/18 11:15 Chloride 105.0 mmol/L (98-107) 03/05/18 11:15 Glucose 99 mg/dl (75-110) 03/05/18 11:15 Lactate 1.8 mmol/L (0.7-2.1) 03/05/18 11:15 FiO2 21.0 % 03/05/18 11:15 Sodium 141 mmol/L (132-148) 03/07/18 06:45 Potassium 3.7 mmol/L (3.6-5.0) 03/07/18 06:45 Chloride 108 mmol/L (98-107) H 03/07/18 06:45 Carbon Dioxide 28 mmol/L (21-33) 03/07/18 06:45 Anion Gap 9 (10-20) L 03/07/18 06:45 BUN 5 mg/dL (7-21) L 03/07/18 06:45 Creatinine 0.6 mg/dl (0.8-1.5) L 03/07/18 06:45 Est GFR ( Amer) > 60 03/07/18 06:45 Est GFR (Non-Af Amer) > 60 03/07/18 06:45 POC Glucose (mg/dL) 111 mg/dL (65-110) H 03/05/18 10:55 Random Glucose 90 mg/dL (70-110) 03/07/18 06:45 Calcium 7.8 mg/dL (8.4-10.5) L 03/07/18 06:45 Phosphorus 3.1 mg/dL (2.5-4.5) 03/07/18 06:45 Magnesium 1.9 mg/dL (1.7-2.2) 03/07/18 06:45 Total Bilirubin 0.6 mg/dL (0.2-1.3) 03/07/18 06:45 AST 17 U/L (17-59) 03/07/18 06:45 ALT 25 U/L (7-56) 03/07/18 06:45 Alkaline Phosphatase 69 U/L (38-126) 03/07/18 06:45 Lactate Dehydrogenase 390 U/L (333-699) 03/05/18 10:50 Total Creatine Kinase 29 U/L (35-230) L 03/05/18 10:50 Troponin I < 0.01 ng/mL 03/05/18 10:50 Total Protein 5.2 g/dL (5.8-8.3) L 03/07/18 06:45 Albumin 2.7 g/dL (3.0-4.8) L 03/07/18 06:45 Globulin 2.5 gm/dL 03/07/18 06:45 Albumin/Globulin Ratio 1.1 (1.1-1.8) 03/07/18 06:45 Triglycerides 78 mg/dL (35-160) 03/06/18 06:20 Cholesterol 122 mg/dL (130-200) L 03/06/18 06:20 LDL Cholesterol Direct 63 mg/dL (0-129) 03/06/18 06:20 HDL Cholesterol 37 mg/dL (29-60) 03/06/18 06:20 Venous Blood Potassium 4.1 mmol/L (3.6-5.2) 03/05/18 11:15 Attending/Attestation - Attestation I have personally seen and examined this patient.: Yes I have fully participated in the care of the patient.: Yes I have reviewed all pertinent clinical information, including history, physical exam and plan: Yes Notes (Text): 03/08/18 16:33 Medical record note made by the resident after discussion with my direction and input after the patient was personally seen and examined by me. I have reviewed the chart and agree that the record accurately reflects by personal performance of the history, physical exam, data review, and medical decision-making, in the course for the patient. I have also personally directed the plan of care. 62 y o male PMH orthostatic hypotension, neuropathy, ulcerative colitis, prostate cancer, and non compliance with medication was admitted with his with history of fall and lose of consciousness. Patient states that he was home alone and was rising from the toilet after going to the bathroom.There is no focal deficit.CT scan of head was negative.The etiology is due to orthostatic hypotension. Patient is still orthostatic, on Fludocortisone and Midodrine.Gait is unsteady.He was advised to stay in hospital for 24 hour to monitor the response .Patient is high risk for fall.He has refused to stay in the hospital.He has signed against medical advice.
--- NOTE | 2018-03-08 08:32 | PN ---
DATE: 03/06/2018 CARDIOLOGY FOLLOWUP SUBJECTIVE: The patient is now sitting in a chair with less shortness of breath. We will make attempts to work with physical therapy today. The patient was admitted for multiple falls. The patient also suffers from severe COPD due to his heavy smoking history. . PHYSICAL EXAMINATION: VITAL SIGNS: The patient remains orthostatic despite IV fluids, heart rate is in the 80s. NECK: Negative JVD. LUNGS: Without rales. HEART: S1, S2. EXTREMITIES: Without edema. LABORATORY DATA: BUN and creatinine are unremarkable. Hemoglobin is 10.9. Echocardiogram results are pending. IMPRESSION: 1. Recurrent falls. 2. Orthostatic hypotension. 3. The patient has been started on Florinef. 4. Severe chronic obstructive pulmonary disease. Given these findings, we will wait for the results of his blood pressure changes with the addition of IV fluids and Florinef. Echocardiogram results pending. Michael Olmstead MD
== END 2018-03-07 17:28 | disposition left against medical advice (07) ==
LOC: ED 10:44 → ERH 12:41 → 2RNO 15:38
PROVIDERS: ADMIT Internal Medicine; ATTEND Internal Medicine
DX: I95.1 Orthostatic hypotension (principal); K51.90 Ulcerative colitis, unspecified, without complications; S02.40DA Maxillary fracture, left side, initial encounter for closed fracture; R29.6 Repeated falls; N40.0 Benign prostatic hyperplasia without lower urinary tract symptoms; J44.9 Chronic obstructive pulmonary disease, unspecified; R42 Dizziness and giddiness; G62.9 Polyneuropathy, unspecified; W19.XXXA Unspecified fall, initial encounter; Y93.01 Activity, walking, marching and hiking; Y92.009 Unspecified place in unspecified non-institutional (private) residence as the place of occurrence of the external cause; Z91.14 Patient's other noncompliance with medication regimen; Z85.46 Personal history of malignant neoplasm of prostate; Z91.81 History of falling; Z87.891 Personal history of nicotine dependence
CPT/HCPCS: 36415; 70450; 71045; 80053; 80061; 82550; 82803; 82948; 83615; 83735; 84100; 84484; 85025; 85610; 85730; 87040; 93005; 93306; 93880; 96360; 97162; 97530; 99285; G0378; G8978; G8979; J7030

== ENCOUNTER 2018-07-29 12:10 | Inpatient (IN) | payer BC ==
[2018-07-29 12:44] LABS: BASO # 0.02 K/mm3 (0.0-2.0); BASO % 0.2 % (0.0-3.0); EOS % 0.1 % (1.5-5.0); GRAN # 8.01 (1.4-6.5); GRAN % 81.3 % (50.0-68.0); HEMOGLOBIN 11.4 g/dL (14.0-18.0); LYMPH # 1.2 (1.2-3.4); LYMPH % 12.2 % (22.0-35.0); MEAN CELL VOLUME 86.8 fl (80.0-105.0); MEAN CORPUSCULAR HGB CONC 33.4 g/dl (31.0-37.0); MEAN PLATELET VOLUME 8.9 fl (7.0-11.0); MONO # 0.6 (0.1-0.6); MONO % 6.2 % (1.0-6.0); RBC 3.93 10^6/uL (3.5-6.1); RED CELL DISTRIBUTION WIDTH 13.7 % (11.5-14.5); WHITE BLOOD COUNT 9.9 10^3/uL (4.5-11.0)
[2018-07-29] MEDS ORDERED: Sodium Chloride 0.9% 1,000 ML IV STA (12:45)
--- NOTE | 2018-07-29 12:45 | ED PDOC ---
Arrival/HPI - General Historian: Patient, Family () - History of Present Illness Narrative History of Present Illness (Text): 07/29/18 12:40 63 y o male with PMhx orthostatic hypotension, neuropathy, ulcerative colitis, prostate ca, [facility]. Pt's states pt has not been acting like himself for the last 24 hrs. States there were 3 episodes in which she was talking/saying commands to pt, but pt was delayed at responding verbally and had slow motor response. After episodes, which lasted for several minutes at a time, pt was back to baseline, AAOx3, speaking clearly without slurred speech. Pt has chronic hx of upper extremity tremors b/l unchanged from baseline. Pt usually uses 4-pronged cane to ambulate but has been wobbly with his gait over the past several days. Pt's measured blood pressure at home which was 76/53; states pt usually runs 100s-110s systolic at home normally. Of note pt recently had the flu 3 weeks ago. Denies headache, dizziness, chest pain, palpitations, fever, chills, shortness of breath, n/v/d/c, abd pain, urinary complaints, or other symptoms currently. PMhx: orthostatic hypotension, neuropathy, ulcerative colitis, prostate ca PSurgHx: B/l eye surgery for floaters Allergies: codeine (vomiting, sweating) Fam hx: denies Soc hx: former smoker quit 22 y ago; denies EtOH or illicit drug use PMD: Dr. Houser Primary neurologist: Dr. Swartz Primary cardio: Dr. Osuna Time/Duration: 24 hours Symptom Onset: Sudden Symptom Course: Intermittent Quality: Unable to Describe Severity Level: Moderate Activities at Onset: Rest, Light Context: Home <Eugene Herrera - Last Filed: 07/29/18 14:35> <Brendan Hankins - Last Filed: 08/05/18 16:47> - General Chief Complaint: Dizziness/Lightheaded Past Medical History - Provider Review Nursing Documentation Reviewed: Yes - Travel History Have you recently traveled outside [place] w/in the past 3 mons?: No - Infectious Disease Hx of Infectious Diseases: None - Cardiac Hx Cardiac Disorders: Yes Hx Hypertension: Yes Other/Comment: orthostatic hyposension, pt scheduled for a stress test march 12 2018 - Pulmonary Hx Respiratory Disorders: No - Neurological Hx Dizziness: Yes Other/Comment: peripheral neuropathy both feet beginning to travel to b/l lower legs pain numbness for about 5/6 yrs - HEENT Hx HEENT Disorder: No - Renal Hx Renal Disorder: No - Endocrine/Metabolic Hx Endocrine Disorders: No - Hematological/Oncological Hx Blood Disorders: Yes Hx Cancer: (see below) Other/Comment: prostate bx 03/2010 found small "spot of ca, not aggresive" no treatment scheduled to f/u with dr murray next week 03/11/18 - Integumentary Other/Comment: abrasion left nostril and left side face cheekbone, abrasion left shoulder, bunyon left foot, buttocks red blanchable skin, small 0.3cm round red small opening right buttock, indentation above butt crack 1cm long indentation not opened - Musculoskeletal/Rheumatological Hx Musculoskeletal Disorders: Yes Hx Unsteady Gait: Yes (quad cane) - Gastrointestinal Hx Diverticulitis: (pt denies) Other/Comment: hx blood in stools, loose stools, 11/08/15 egd with push enteroscopy/ bx with sigmoidoscopy/pre op dx was wt loss/diarrhea, pt wears depends as a precaution due to ulcerative colitis - Genitourinary/Gynecological Hx Prostate Cancer: Yes Hx Prostate Problems: Yes (enlarged) Other/Comment: hesitancy, "mucous in urine when I begin to pee", them clears - Psychiatric Hx Psychophysiologic Disorder: No Hx Substance Use: No - Surgical History Other/Comment: prostate bx 03/2010 - Anesthesia Hx Anesthesia: Yes Hx Anesthesia Reactions: Yes (vomitting) Hx Malignant Hyperthermia: No - Suicidal Assessment Feels Threatened In Home Enviroment: No <Eugene Herrera - Last Filed: 07/29/18 14:35> Family/Social History - Physician Review Nursing Documentation Reviewed: Yes Family/Social History: No Known Family HX Smoking Status: Former Smoker Hx Alcohol Use: No Hx Substance Use: No <Eugene Herrera - Last Filed: 07/29/18 14:35> Allergies/Home Meds <Eugene Herrera - Last Filed: 07/29/18 14:35> <Brendan Hankins - Last Filed: 08/05/18 16:47> Allergies/Adverse Reactions: Allergies codeine Allergy (Intermediate, Verified 03/05/18 10:51) SWEATING,FEVERISH,VOMITING Home Medications: Home Meds Medication Instructions Recorded Confirmed RX: Mesalamine [Apriso] 4 cap PO DAILY 03/05/18 07/29/18 Review of Systems - Physician Review All systems were reviewed & negative as marked: Yes - Review of Systems Constitutional: Fatigue. absent: Weight Change, Fevers, Night Sweats Eyes: absent: Vision Changes, Photophobia ENT: absent: Hearing Changes, Tinnitus, Rhinorrhea Respiratory: absent: SOB, Cough, Sputum Cardiovascular: absent: Chest Pain, Palpitations, Edema Gastrointestinal: absent: Abdominal Pain, Stool Changes, Constipation, Diarrhea, Nausea, Vomiting, Anorexia, Food Intolerance Genitourinary Male: absent: Dysuria, Frequency, Urinary Output Changes Musculoskeletal: absent: Arthralgias, Back Pain, Neck Pain Skin: absent: Rash Neurological: Focal Weakness, Gait Changes. absent: Headache, Dizziness, Speech Changes, Seizure Endocrine: absent: Diaphoresis Hemo/Lymphatic: absent: Adenopathy <Eugene Herrera - Last Filed: 07/29/18 14:35> Physical Exam Vital Signs Reviewed: Yes Vital Signs Temp Pulse Resp BP Pulse Ox 07/29/18 12:11 98.2 F 89 18 102/44 L 100 Temperature: Afebrile Blood Pressure: Hypotensive Pulse: Regular Respiratory Rate: Normal Appearance: Positive for: Well-Appearing, Non-Toxic, Comfortable Pain Distress: None Mental Status: Positive for: Alert and Oriented X 3 - Systems Exam Head: Present: Atraumatic, Normocephalic Pupils: Present: PERRL Extroacular Muscles: Present: EOMI Conjunctiva: Present: Normal Ears: Present: NORMAL TM. No: Fluid Mouth: Present: Moist Mucous Membranes Pharnyx: No: ERYTHEMA, EXUDATE Neck: Present: Normal Range of Motion. No: JVD, Lymphadenopathy Respiratory/Chest: Present: Clear to Auscultation, Good Air Exchange. No: Respiratory Distress, Accessory Muscle Use, Wheezes, Rales, Rhonchi Cardiovascular: Present: Regular Rate and Rhythm, Normal S1, S2. No: Murmurs, Rub, Gallop Abdomen: Present: Normal Bowel Sounds. No: Tenderness, Distention, Rebound, Mass/Organomegaly Upper Extremity: Present: Normal Inspection, Normal ROM, NORMAL PULSES, Neurovascularly Intact, Capillary Refill < 2s. No: Cyanosis, Edema, Temperature Abnormalties Lower Extremity: Present: Normal Inspection, NORMAL PULSES, Normal ROM, Neurovascularly Intact, Capillary Refill < 2 s. No: Edema Neurological: Present: GCS=15, CN II-XII Intact, Speech Normal Skin: Present: Warm, Dry, Normal Color. No: Rashes Psychiatric: Present: Alert, Oriented x 3, Normal Insight, Normal Concentration <Eugene Herrera - Last Filed: 07/29/18 14:35> Vital Signs Temp Pulse Resp BP Pulse Ox 07/29/18 14:11 99.3 F 17 106/66 81 L 07/29/18 12:11 98.2 F 89 18 102/44 L 100 <Brendan Hankins - Last Filed: 08/05/18 16:47> Medical Decision Making ED Course and Treatment: 07/29/18 12:54 63 y o male PMhx orthostatic hypotension, neuropathy, ulcerative colitis, and prostate ca presenting with hypotension. Plan: -Labs -EKG -IVF -CT head -CXR Will continue to monitor. 07/29/18 13:36 BNP elevated 1410. IVF d/c'd at this time. Discussed care with Dr. Anderson (Hospitalist), who will accept admission. Pt to be admitted under observation for hypotension, elevated BNP, r/o seizure. - RAD Interpretation Radiology Orders: 07/29/18 12:36 HEAD W/O CONTRAST [CT] Stat CHEST PORTABLE [RAD] Stat - EKG Interpretation EKG Interpretation (Text): 07/29/18 12:56 NSR at 90 bpm, no acute St-t changes noted. Interpreted by ED Physician: Yes Type: 12 lead EKG Comparison: Similar to previous EKG <Eugene Herrera - Last Filed: 07/29/18 14:35> - Lab Interpretations Lab Results: 07/30/18 06:00 07/30/18 06:00 Lab Results 07/30/18 06:00: Sodium 139, Potassium 4.1, Chloride 103, Carbon Dioxide 32, Anion Gap 8 L, BUN 12, Creatinine 0.8, Est GFR ( Amer) > 60, Est GFR (Non-Af Amer) > 60, Random Glucose 99, Calcium 8.1 L, Total Bilirubin 0.7, AST 24, ALT 27, Alkaline Phosphatase 72, Total Protein 6.2, Albumin 2.9 L, Globulin 3.3, Albumin/Globulin Ratio 0.9 L 07/30/18 06:00: WBC 7.7 D, RBC 3.68, Hgb 10.3 L, Hct 32.2 L, MCV 87.5, MCH 28.0, MCHC 32.0, RDW 14.0, Plt Count 245, MPV 9.5, Gran % 75.2 H, Lymph % (Auto) 17.1 L, [place] % (Auto) 7.3 H, Eos % (Auto) 0.3 L, Baso % (Auto) 0.1, Gran # 5.77, Lymph # (Auto) 1.3, [place] # (Auto) 0.6, Eos # (Auto) 0.0, Baso # (Auto) 0.01 07/29/18 12:35: Sodium 137, Potassium 4.0, Chloride 101, Carbon Dioxide 31, Anion Gap 9 L, BUN 14, Creatinine 0.7 L, Est GFR ( Amer) > 60, Est GFR (Non-Af Amer) > 60, Random Glucose 105, Calcium 8.3 L, Phosphorus 3.3, Magnesium 2.2, Total Bilirubin 1.0, AST 23, ALT 22, Alkaline Phosphatase 69, Troponin I 0.01, NT-Pro-B Natriuret Pep 1410 H, Total Protein 6.9, Albumin 3.4, Globulin 3.5, Albumin/Globulin Ratio 1.0 L 07/29/18 12:35: WBC 9.9, RBC 3.93, Hgb 11.4 L, Hct 34.1 L, MCV 86.8 D, MCH 29.0, MCHC 33.4, RDW 13.7, Plt Count 265, MPV 8.9, Gran % 81.3 H, Lymph % (Auto) 12.2 L, [place] % (Auto) 6.2 H, Eos % (Auto) 0.1 L, Baso % (Auto) 0.2, Gran # 8.01 H, Lymph # (Auto) 1.2, [place] # (Auto) 0.6, Eos # (Auto) 0.0, Baso # (Auto) 0.02 - RAD Interpretation Radiology Orders: 07/29/18 12:36 HEAD W/O CONTRAST [CT] Stat CHEST ONE VIEW [RAD] Stat 07/30/18 12:23 BRAIN W & WO CONTRAST [MRI] Urgent - Medication Orders Current Medication Orders: Discontinued Medications Acetaminophen (Tylenol 325mg Tab) 650 mg PO STAT STA; Protocol Stop: 07/30/18 21:51 Last Admin: 07/30/18 22:02 Dose: 650 mg MAR Pain/Vitals Document 07/30/18 22:02 LJDustin (Rec: 07/30/18 22:02 LJA [id number]) Pain Reassessment Is This A Pain ReAssessment? No Vitals Temperature (97.6 F-99.6 F) 100.8 F Re-Assess: MAR Pain/Vitals Document 07/30/18 23:02 LJDustin (Rec: 07/31/18 03:17 LJA [id number]) Pain Reassessment Is This A Pain ReAssessment? No Vitals Temperature (97.6 F-99.6 F) 100.0 F Amoxicillin/Clavulanate Potassium (Augmentin 500 Mg-125 Mg Tab) 1 tab PO Q8 S ; Protocol Stop: 08/08/18 15:16 Last Admin: 08/04/18 17:33 Dose: 1 tab Fludrocortisone Acetate (Florinef) 0.1 mg PO BID [facility] Last Admin: 08/01/18 09:00 Dose: 0.1 mg Fludrocortisone Acetate (Florinef) 0.2 mg PO BID [facility] Last Admin: 08/03/18 11:38 Dose: 0.2 mg Fludrocortisone Acetate (Florinef) 0.2 mg PO TID [facility] Last Admin: 08/04/18 17:30 Dose: 0.2 mg Sodium Chloride (Sodium Chloride 0.9%) 1,000 mls @ 75 mls/hr IV .[id number] KALYAN Stop: 07/30/18 17:54 Last Admin: 07/30/18 10:19 Dose: 75 mls/hr eMAR Start Stop Document 07/30/18 10:19 MN (Rec: 07/30/18 10:19 MN [id number]) Intravenous Solution Start Date 07/30/18 Start Time 10:19 Ceftriaxone Sodium (Rocephin 1 Gram Ivpb) 1 gm in 100 mls @ 100 mls/hr IVPB DAILY KALYAN; Protocol Last Admin: 08/03/18 11:38 Dose: 100 mls/hr eMAR Start Stop Document 08/03/18 11:38 MCV (Rec: 08/03/18 11:38 MCV [id number]) Intravenous Solution Start Date 08/03/18 Start Time 11:38 Sodium Chloride (Sodium Chloride 0.9%) 1,000 mls @ 50 mls/hr IV .Q20H KALYAN Last Admin: 08/03/18 02:59 Dose: 50 mls/hr eMAR Start Stop Document 08/03/18 02:59 CHINC (Rec: 08/03/18 02:59 [id number]) Intravenous Solution Start Date 08/03/18 Start Time 02:59 Sodium Chloride (Sodium Chloride 0.9%) 1,000 mls @ 100 mls/hr IV .Q10H KALYAN Last Admin: 08/04/18 05:40 Dose: 100 mls/hr eMAR Start Stop Document 08/04/18 05:40 [facility] (Rec: 08/04/18 05:40 [id number]) Intravenous Solution Start Date 08/04/18 Start Time 05:40 Influenza Virus Vaccine (Flucelvax Quad 4543-5030 Syr) 60 mcg IM .ONCE ONE Stop: 07/29/18 22:14 Midodrine (Proamatine) 5 mg PO BID [facility] Last Admin: 08/01/18 09:00 Dose: 5 mg Midodrine (Proamatine) 10 mg PO BID KALYAN Last Admin: 08/04/18 17:32 Dose: 10 mg Non-Formulary Medication (Mesalamine [Apriso]) 4 cap PO DAILY KALYAN Last Admin: 08/02/18 09:32 Dose: 4 cap Mesalamine [Apriso] 0.375gm Er (Home Med) 4 cap PO DAILY KALYAN Last Admin: 08/04/18 17:34 Dose: Not Given Non-Admin Reason: NOT AVAILABLE Pantoprazole Sodium (Protonix Ec Tab) 20 mg PO 0600 KALYAN Last Admin: 08/04/18 09:37 Dose: 20 mg Pneumococcal Polyvalent Vaccine (Pneumovax 23 Vaccine) 0.5 ml IM .ONCE ONE Stop: 07/29/18 22:14 Potassium Chloride (K-Dur 20 Meq Er Tab) 40 meq PO STAT STA Stop: 08/02/18 08:53 Last Admin: 08/02/18 09:35 Dose: 40 meq Potassium Chloride (K-Dur 20 Meq Er Tab) 40 meq PO STAT STA Stop: 08/03/18 08:44 Last Admin: 08/03/18 11:49 Dose: 40 meq Potassium Chloride (K-Dur 20 Meq Er Tab) 40 meq PO STAT STA Stop: 08/03/18 11:35 Potassium Chloride (K-Dur 20 Meq Er Tab) 40 meq PO STAT STA Stop: 08/04/18 09:00 Last Admin: 08/04/18 09:37 Dose: 40 meq <Brendan Hankins - Last Filed: 08/05/18 16:47> - PA / SENIOR [employer] ADMINISTRATOR / Resident Statement / has examined the patient and agrees with the treatment plan. (63 yr old male w/ hx of hypotension currently on outpt midrodine for hypotn p/w hypotn and a couple of episodes over the past days of ams/slurred speech: was noted to be hypotensive at that time. No febrile symptoms or cough. Likely requires adjustment of midrodrine and further f/u w/ cards. BNP elevated and fluids d/c: pts pressure stable. Pt and family agreeable to admission.) <Brendan Hankins - Last Filed: 08/05/18 16:47> Disposition/Present on Arrival - Present on Arrival Any Indicators Present on Arrival: No History of DVT/PE: No History of Uncontrolled Diabetes: No Urinary Catheter: No History of Decub. Ulcer: No History Surgical Site Infection Following: None - Disposition Have Diagnosis and Disposition been Completed?: Yes Disposition Time: 13:38 Patient Plan: Observation <Eugene Herrera - Last Filed: 07/29/18 14:35> <Brendan Hankins - Last Filed: 08/05/18 16:47> - Disposition Diagnosis: Near syncope, Elevated brain natriuretic peptide (BNP) level Disposition: HOSPITALIZED Condition: GUARDED
[2018-07-29 12:59] LABS: ALBUMIN 3.4 g/dL (3.0-4.8); ALT/SGPT 22 U/L (7-56); AST/SGOT 23 U/L (17-59); BLOOD UREA NITROGEN 14 mg/dL (7-21); CALCIUM 8.3 mg/dL (8.4-10.5); GFR NON-AFRICAN AMERICAN > 60
[2018-07-29 13:05] LABS: B-TYPE NATRIURETIC PEPTIDE 1410 pg/mL (0-450)
--- NOTE | 2018-07-29 13:12 | CT ---
Date of service: 07/29/2018 PROCEDURE: CT HEAD WITHOUT CONTRAST. HISTORY: hypotension, altered mental status COMPARISON: 03/05/2018 TECHNIQUE: Axial computed tomography images were obtained through the head/brain without intravenous contrast. Radiation dose: Total exam DLP = 821.78 mGy-cm. This CT exam was performed using one or more of the following dose reduction techniques: Automated exposure control, adjustment of the mA and/or kV according to patient size, and/or use of iterative reconstruction technique. FINDINGS: HEMORRHAGE: No intracranial hemorrhage. BRAIN: No mass effect or edema. No atrophy or chronic microvascular ischemic changes. VENTRICLES: Unremarkable. No hydrocephalus. CALVARIUM: Unremarkable. PARANASAL SINUSES: Unremarkable as visualized. No significant inflammatory changes. MASTOID AIR CELLS: Unremarkable as visualized. No inflammatory changes. OTHER FINDINGS: None. IMPRESSION: No acute intracranial findings
[2018-07-29 13:18] LABS: TROPONIN I 0.01 ng/mL
--- NOTE | 2018-07-29 13:21 | RAD ---
Date of service: 07/29/2018 PROCEDURE: CHEST RADIOGRAPH, 1 VIEW HISTORY: hypotension COMPARISON: 03/05/2018 FINDINGS: LUNGS: Clear. PLEURA: No pneumothorax or pleural fluid seen. CARDIOVASCULAR: No aortic atherosclerotic calcification present. Normal. OSSEOUS STRUCTURES: No significant abnormalities. VISUALIZED UPPER ABDOMEN: Normal. OTHER FINDINGS: None. IMPRESSION: No active disease.
--- NOTE | 2018-07-29 14:56 | CP.PCM.HP ---
<Radha Bateman - Last Filed: 07/29/18 15:05> History of Present Illness - History of Present Illness History of Present Illness: Hospitalist H&P for Kraig Lizama PGY3 This is a 63yo male with past medical history of Ulcerative colitis, prostate ca (s/p laser tx), orthostatic hypotension who came to ED for low blood pressure and dizziness. Patient's is at bedside who reports that the patient came out of the bathroom and was standing and was standing and was having delayed response to her for a few seconds. Patient stared off to the side and then recovered as if normal. He did not fall, hit his head, have tongue biting, tonic-clonic movements or incontinence. His took his BP at home and reported it was in the 70s. Patient states he did not take his midodrine today. His normal SBP is 100-110. is worried about him having seizures, but has never been worked up for seizure before. Patient denies chest pain, shortness of breath, nausea/vomiting/diarrhea, fever/chills, numbness/tingling, dysuria or hematuria. Past medical history: Ulcerative colitis, prostate ca (s/p laser tx), orthostatic hypotension Past surgical history: Prostate laser tx, Bilateral eye surgery Home meds: Mesalamine, Midodrine Allergies: Codeine- sweating/vomiting Social history: Former tobacco abuse (quit ~20yrs ago), Denies EtOH or drug use. Lives with . Uses cane to walk. Family history: Father- age 57 lung ca PMD: Dr. Houser Neurologist: Dr. Swartz Video Technician: Dr. Osuna Present on Admission - Present on Admission Any Indicators Present on Admission: No Review of Systems - Review of Systems All systems: reviewed and no additional remarkable complaints except Review of Systems: 12 point ROS reviewed as per HPI and is otherwise negative. Past Patient History - Infectious Disease Hx of Infectious Diseases: None - Past Social History Smoking Status: Former Smoker - CARDIAC Hx Cardiac Disorders: Yes Hx Hypertension: Yes Other/Comment: orthostatic hyposension, pt scheduled for a stress test march 12 2018 - PULMONARY Hx Respiratory Disorders: No - NEUROLOGICAL Hx Dizziness: Yes Other/Comment: peripheral neuropathy both feet beginning to travel to b/l lower legs pain numbness for about 5/6 yrs - HEENT Hx HEENT Problems: No - RENAL Hx Chronic Kidney Disease: No - ENDOCRINE/METABOLIC Hx Endocrine Disorders: No - HEMATOLOGICAL/ONCOLOGICAL Hx Blood Disorders: Yes Hx Cancer: (see below) Other/Comment: prostate bx 03/2010 found small "spot of ca, not aggresive" no treatment scheduled to f/u with dr murray next week 03/11/18 - INTEGUMENTARY Other/Comment: abrasion left nostril and left side face cheekbone, abrasion left shoulder, bunyon left foot, buttocks red blanchable skin, small 0.3cm round red small opening right buttock, indentation above butt crack 1cm long indentation not opened - MUSCULOSKELETAL/RHEUMATOLOGICAL Hx Musculoskeletal Disorders: Yes Hx Unsteady Gait: Yes (quad cane) - GASTROINTESTINAL Hx Diverticulitis: (pt denies) Other/Comment: hx blood in stools, loose stools, 11/08/15 egd with push enteroscopy/ bx with sigmoidoscopy/pre op dx was wt loss/diarrhea, pt wears depends as a precaution due to ulcerative colitis - GENITOURINARY/GYNECOLOGICAL Hx Prostate Cancer: Yes Hx Prostate Problems: Yes (enlarged) Other/Comment: hesitancy, "mucous in urine when I begin to pee", them clears - PSYCHIATRIC Hx Psychophysiologic Disorder: No Hx Substance Use: No - SURGICAL HISTORY Other/Comment: prostate bx 03/2010 - ANESTHESIA Hx Anesthesia: Yes Hx Anesthesia Reactions: Yes (vomitting) Hx Malignant Hyperthermia: No Meds Allergies/Adverse Reactions: Allergies Allergy/AdvReac Type Severity Reaction Status Date / Time codeine Allergy Intermediate SWEATING,FE Verified 03/05/18 10:51 VERISH,VOMI TING Physical Exam - Constitutional Appears: No Acute Distress - Head Exam Head Exam: ATRAUMATIC, NORMAL INSPECTION, NORMOCEPHALIC - Eye Exam Eye Exam: Normal appearance, PERRL Pupil Exam: NORMAL ACCOMODATION - ENT Exam ENT Exam: Mucous Membranes Moist - Respiratory Exam Respiratory Exam: Clear to Auscultation Bilateral, NORMAL BREATHING PATTERN. absent: Rales, Rhonchi, Wheezes - Cardiovascular Exam Cardiovascular Exam: REGULAR RHYTHM, +S1, +S2. absent: Gallop, Rubs, Systolic Murmur - GI/Abdominal Exam GI & Abdominal Exam: Normal Bowel Sounds, Soft. absent: Guarding, Mass, Rebound, Rigid, Tenderness - Extremities Exam Extremities exam: Positive for: normal inspection. Negative for: calf tenderness, pedal edema - Neurological Exam Neurological exam: Alert, CN II-XII Intact, Oriented x3 - Psychiatric Exam Psychiatric exam: Normal Affect, Normal Mood - Skin Skin Exam: Dry, Intact, Warm Results - Vital Signs Recent Vital Signs: Last Vital Signs Temp 99.3 F 07/29/18 14:11 Pulse 89 07/29/18 12:11 Resp 17 07/29/18 14:11 BP 106/66 07/29/18 14:11 Pulse Ox 81 L 07/29/18 14:11 - Labs Result Diagrams: 07/29/18 12:35 07/29/18 12:35 Labs: Laboratory Results - last 24 hr 07/29/18 07/29/18 12:35 12:35 WBC 9.9 RBC 3.93 Hgb 11.4 L Hct 34.1 L MCV 86.8 D MCH 29.0 MCHC 33.4 RDW 13.7 Plt Count 265 MPV 8.9 Gran % 81.3 H Lymph % (Auto) 12.2 L [place] % (Auto) 6.2 H Eos % (Auto) 0.1 L Baso % (Auto) 0.2 Gran # 8.01 H Lymph # (Auto) 1.2 [place] # (Auto) 0.6 Eos # (Auto) 0.0 Baso # (Auto) 0.02 Sodium 137 Potassium 4.0 Chloride 101 Carbon Dioxide 31 Anion Gap 9 L BUN 14 Creatinine 0.7 L Est GFR ( Amer) > 60 Est GFR (Non-Af Amer) > 60 Random Glucose 105 Calcium 8.3 L Phosphorus 3.3 Magnesium 2.2 Total Bilirubin 1.0 AST 23 ALT 22 Alkaline Phosphatase 69 Troponin I 0.01 NT-Pro-B Natriuret Pep 1410 H Total Protein 6.9 Albumin 3.4 Globulin 3.5 Albumin/Globulin Ratio 1.0 L Assessment & Plan - Assessment and Plan (Free Text) Assessment: This is a 63yo male with past medical history of Ulcerative colitis, prostate ca (s/p laser tx), orthostatic hypotension who came to ED for low blood pressure and dizziness which can be secondary to orthostatic hypotension versus partial seizure. Plan: 1. Dizziness - Secondary to orthostatic hypotension versus seizures - Continue Midodrine - NS@75 - Neuro consulted - Cardio consulted - Head CT negative - Seizure/fall precautions 2. Hx of Ulcerative colitis - Not in a flare at this time - Continue Mesalamine - Low dairy diet Case seen, discussed and reviewed with Dr. Justin Bateman PGY3 - Date & Time Date: 07/29/18 Time: 15:27 <Cleve Anderson - Last Filed: 07/29/18 17:16> Results - Vital Signs Recent Vital Signs: Last Vital Signs Temp 99.3 F 07/29/18 14:11 Pulse 89 07/29/18 12:11 Resp 17 07/29/18 14:11 BP 106/66 07/29/18 14:11 Pulse Ox 81 L 07/29/18 14:11 - Labs Result Diagrams: 07/29/18 12:35 07/29/18 12:35 Labs: Laboratory Results - last 24 hr 07/29/18 07/29/18 12:35 12:35 WBC 9.9 RBC 3.93 Hgb 11.4 L Hct 34.1 L MCV 86.8 D MCH 29.0 MCHC 33.4 RDW 13.7 Plt Count 265 MPV 8.9 Gran % 81.3 H Lymph % (Auto) 12.2 L [place] % (Auto) 6.2 H Eos % (Auto) 0.1 L Baso % (Auto) 0.2 Gran # 8.01 H Lymph # (Auto) 1.2 [place] # (Auto) 0.6 Eos # (Auto) 0.0 Baso # (Auto) 0.02 Sodium 137 Potassium 4.0 Chloride 101 Carbon Dioxide 31 Anion Gap 9 L BUN 14 Creatinine 0.7 L Est GFR ( Amer) > 60 Est GFR (Non-Af Amer) > 60 Random Glucose 105 Calcium 8.3 L Phosphorus 3.3 Magnesium 2.2 Total Bilirubin 1.0 AST 23 ALT 22 Alkaline Phosphatase 69 Troponin I 0.01 NT-Pro-B Natriuret Pep 1410 H Total Protein 6.9 Albumin 3.4 Globulin 3.5 Albumin/Globulin Ratio 1.0 L Attending/Attestation - Attestation I have personally seen and examined this patient.: Yes I have fully participated in the care of the patient.: Yes I have reviewed all pertinent clinical information: Yes Notes (Text): 63 y/o M with PMH as above presented after multiple dizzy spells and questionable seizure activity. Most likely related to orthostatic hypotension, but will need further eval by neurology and cardiology. CT head is negative Will hold antihypertensives and resume home dose of midodrine. Gentle IVF hydra tion Resume his home meds for UC. 07/29/18 17:12
[2018-07-29] MEDS: Sodium Chloride 0.9% 1,000 ML IV SCH (15:48)
[2018-07-29 22:12] VITALS: BMI 18.8
[2018-07-29] MEDS ORDERED: Influenza Vaccine 60 mcg/0.5 mL SYR (4YR UP) IM ONE (22:13)
[2018-07-29] MEDS ORDERED: Pneumococcal 23-Valent Vaccine IM ONE (22:13)
[2018-07-30 07:00] LABS: BASO # 0.01 K/mm3 (0.0-2.0); BASO % 0.1 % (0.0-3.0); EOS % 0.3 % (1.5-5.0); GRAN # 5.77 (1.4-6.5); GRAN % 75.2 % (50.0-68.0); HEMOGLOBIN 10.3 g/dL (14.0-18.0); LYMPH # 1.3 (1.2-3.4); LYMPH % 17.1 % (22.0-35.0); MEAN CELL VOLUME 87.5 fl (80.0-105.0); MEAN PLATELET VOLUME 9.5 fl (7.0-11.0); MONO # 0.6 (0.1-0.6); MONO % 7.3 % (1.0-6.0); RBC 3.68 10^6/uL (3.5-6.1); WHITE BLOOD COUNT 7.7 10^3/uL (4.5-11.0)
[2018-07-30 07:06] LABS: ALB/GLOB RATIO 0.9 (1.1-1.8); ALBUMIN 2.9 g/dL (3.0-4.8); ALT/SGPT 27 U/L (7-56); AST/SGOT 24 U/L (17-59); BLOOD UREA NITROGEN 12 mg/dL (7-21); CALCIUM 8.1 mg/dL (8.4-10.5); GFR NON-AFRICAN AMERICAN > 60
[2018-07-30] MEDS: MESALAMINE PO SCH (10:18)
[2018-07-30] MEDS: Sodium Chloride 0.9% 1,000 ML IV SCH (10:19)
--- NOTE | 2018-07-30 11:30 | CON ---
DATE: 07/30/2018 REASON FOR CONSULTATION: Syncope, cardiac evaluation, positive hypotension. BRIEF CLINICAL HISTORY: This is an 63-year-old male with past medical history significant for ulcerative colitis, prostate CA status post laser surgery a year ago, history of orthostatic hypotension, history of syncope in the past secondary to possible hypotension who said that he was going to the bathroom and almost passed out, but he did not regain conscious quickly. Blood pressure reported to be 70 at home, did not take midodrine today, normal blood pressure according to the patient runs around 100. Denies any chest pain, denies any shortness of breath, denies any palpitation. PAST MEDICAL HISTORY: Past history significant for ulcerative colitis, orthostatic hypotension, multiple syncope, prostate CA status post laser surgery and orthostatic hypotension. PAST SURGICAL HISTORY: Prostate CA, bilateral eye surgery. Previous cardiac workup as follows, patient had echocardiogram on 03/06/2018, shows mildly elevated good LV function, trace tricuspid regurgitation and no pulmonary hypertension. Patient had a stress test done by Dr. Osuna 03/12/2018, probably negative, normal myocardial perfusion study, previous defect, no reversible ischemia, ejection fraction 56%. CURRENT MEDICATIONS: Patient is taking midodrine and methylamine for ulcerative colitis. The patient was admitted with same symptoms in 02/2013 with the same symptoms and found to be orthostatic hypotension. SOCIAL HISTORY: Quit smoking 20 years ago, used to smoke 2 pack a day. Denies any history of alcohol abuse. ALLERGIES: PATIENT IS ALLERGIC TO CODEINE. REVIEW OF SYSTEMS: As per HPI. PHYSICAL EXAMINATION GENERAL: Height of the patient 5 feet 11 inches, weight of the patient 135 pounds, body mass index 20 kg/m2. VITAL SIGNS: Temperature 100.7, heart rate 74, blood pressure 96/60. HEENT: PERRLA. Extraocular muscles intact. NECK: Supple. No carotid bruit. No thyromegaly. CHEST: Clear to auscultation. HEART: S1, S2 regular. ABDOMEN: Soft. EXTREMITIES: Clubbing and cyanosis negative. LABORATORY DATA: EKG shows normal sinus, sinus tachycardia, no acute ST-T changes noted. Blood workup: WBC 7.7, hemoglobin 10.2, hematocrit 32.2, platelet count 245. Chemistry shows sodium 139, potassium 4.1, chloride 103, carbon dioxide 32, anion gap of 8, BUN 12, creatinine 0.8. IMPRESSION: Orthostatic hypotension, history of ulcerative colitis, history of prostate surgery. RECOMMENDATION: We will check orthostatic hypotension. Start low dose of Florinef and once the patient becomes euvolemic, possible discharge home. Thank you Dr. Flores for providing us the opportunity in taking care of the patient, Amy Weaver. We will get lipid profile, TSH, hemoglobin A1c tomorrow. Bryanna Choi MD
--- NOTE | 2018-07-30 12:38 | CP.PCM.CON ---
History of Present Illness - History of Present Illness History of Present Illness: Neurology Consult Note for Dr. Mcclelland Reason for Consultation: r/o seizure Patient is a 63 yo M with PMH of UC, prostate CA, and orthostatic hypotension presents to for hypotension and dizziness. Patient states that he had missed a dose of his midodrine and subsequently SBP at home was found to be the in the 70's. Patient's also states that the patient has had transient periods of unresponsiveness that started several months ago. Patient does not recall any of these occasions. The patient denies any tongue biting, bowel or bladder incontinence, nor has he had any falls. Patient denies any history of seizures or seizures in his family. Patient denies chest pain, shortness of breath, nausea/vomiting/diarrhea, fever/chills, numbness/tingling, dysuria or hematuria. Past medical history: Ulcerative colitis, prostate ca (s/p laser tx), orthostatic hypotension Past surgical history: Prostate laser tx, Bilateral eye surgery Home meds: Mesalamine, Midodrine Allergies: Codeine- sweating/vomiting Social history: Former tobacco abuse (quit ~20yrs ago), Denies EtOH or drug use. Lives with . Uses cane to walk. Family history: Father- age 57 lung ca Review of Systems - Review of Systems All systems: reviewed and no additional remarkable complaints except (12 point ros reviewed and is negative other than what is stated in HPI.) Past Patient History - Infectious Disease Hx of Infectious Diseases: None - Past Social History Smoking Status: Former Smoker - CARDIAC Hx Cardiac Disorders: Yes Hx Hypertension: Yes Other/Comment: orthostatic hypotension - PULMONARY Hx Respiratory Disorders: No - NEUROLOGICAL Hx Neurological Disorder: Yes (chronic upper extremity tremors) Hx Dizziness: Yes Other/Comment: peripheral neuropathy both feet beginning to travel to b/l lower legs pain numbness for about 5/6 yrs. episode of focal weakness gait changes dizziness/lightheaded, stares, slow motor and verbal response this past summer, one week ago and 3 episodes since yesterday - HEENT Hx HEENT Problems: No - RENAL Hx Chronic Kidney Disease: No - ENDOCRINE/METABOLIC Hx Endocrine Disorders: No - HEMATOLOGICAL/ONCOLOGICAL Hx Blood Disorders: Yes Hx Cancer: (see below) Other/Comment: prostate bx 03/2010 found small "spot of ca, not aggresive" no treatment scheduled to f/u with dr murray next week 03/11/18, last bx done 05/2018 negative for ca - INTEGUMENTARY Hx Dermatological Problems: Yes Other/Comment: abrasion left nostril and left side face cheekbone, abrasion left shoulder, bunyon left foot, buttocks red blanchable skin, small 0.3cm round red small opening right buttock, indentation above butt crack 1cm long indentation not opened - MUSCULOSKELETAL/RHEUMATOLOGICAL Hx Falls: No - GASTROINTESTINAL Hx Gastrointestinal Disorders: Yes Hx Diverticulitis: (pt denies) Other/Comment: hx blood in stools, loose stools, 11/08/15 egd with push enteroscopy/ bx with sigmoidoscopy/pre op dx was wt loss/diarrhea, pt wears depends as a precaution due to ulcerative colitis - GENITOURINARY/GYNECOLOGICAL Hx Genitourinary Disorders: Yes Hx Prostate Problems: Yes (enlarged) Other/Comment: hesitancy, "mucous in urine when I begin to pee", then clears - PSYCHIATRIC Hx Substance Use: No - SURGICAL HISTORY Hx Surgeries: Yes Other/Comment: prostate bx 03/2010, latest prostate bx 03/2018 negative for cancer, laser procedure for enlarged prostate - ANESTHESIA Hx Anesthesia: Yes Hx Anesthesia Reactions: Yes (vomitting) Hx Malignant Hyperthermia: No Meds Allergies/Adverse Reactions: Allergies Allergy/AdvReac Type Severity Reaction Status Date / Time codeine Allergy Intermediate SWEATING,FE Verified 03/05/18 10:51 VERISH,VOMI TING - Medications Medications: Current Medications Fludrocortisone Acetate (Florinef) 0.1 mg PO BID [facility] Last Admin: 07/30/18 10:16 Dose: 0.1 mg Sodium Chloride (Sodium Chloride 0.9%) 1,000 mls @ 75 mls/hr IV .[id number] [facility] Stop: 07/30/18 17:54 Last Admin: 07/30/18 10:19 Dose: 75 mls/hr Midodrine (Proamatine) 5 mg PO BID [facility] Last Admin: 07/30/18 10:16 Dose: 5 mg Non-Formulary Medication (Mesalamine [Apriso]) 4 cap PO DAILY [facility] Last Admin: 07/30/18 10:18 Dose: 4 cap Physical Exam - Constitutional Appears: No Acute Distress - Head Exam Head Exam: NORMAL INSPECTION - Eye Exam Eye Exam: Normal appearance, PERRL - ENT Exam ENT Exam: Mucous Membranes Moist, Normal Exam - Neck Exam Neck exam: Positive for: Normal Inspection - Respiratory Exam Respiratory Exam: Clear to Auscultation Bilateral, NORMAL BREATHING PATTERN. absent: Rales, Rhonchi, Wheezes - Cardiovascular Exam Cardiovascular Exam: REGULAR RHYTHM, RRR - GI/Abdominal Exam GI & Abdominal Exam: Normal Bowel Sounds, Soft. absent: Guarding, Rebound, Tenderness - Extremities Exam Extremities exam: Positive for: normal inspection - Back Exam Back exam: NORMAL INSPECTION - Neurological Exam Neurological exam: Alert, CN II-XII Intact, Oriented x3 - Psychiatric Exam Psychiatric exam: Normal Affect - Skin Skin Exam: Normal Color Results - Vital Signs Recent Vital Signs: Last Vital Signs Temp 98.5 F 07/30/18 10:00 Pulse 74 07/30/18 06:00 Resp 18 07/30/18 06:00 BP 96/63 L 07/30/18 06:00 Pulse Ox 98 07/30/18 06:00 - Labs Result Diagrams: 07/30/18 06:00 07/30/18 06:00 Labs: Laboratory Results - last 24 hr 07/29/18 07/29/18 07/30/18 12:35 12:35 06:00 WBC 9.9 7.7 D RBC 3.93 3.68 Hgb 11.4 L 10.3 L Hct 34.1 L 32.2 L MCV 86.8 D 87.5 MCH 29.0 28.0 MCHC 33.4 32.0 RDW 13.7 14.0 Plt Count 265 245 MPV 8.9 9.5 Gran % 81.3 H 75.2 H Lymph % (Auto) 12.2 L 17.1 L [place] % (Auto) 6.2 H 7.3 H Eos % (Auto) 0.1 L 0.3 L Baso % (Auto) 0.2 0.1 Gran # 8.01 H 5.77 Lymph # (Auto) 1.2 1.3 [place] # (Auto) 0.6 0.6 Eos # (Auto) 0.0 0.0 Baso # (Auto) 0.02 0.01 Sodium 137 Potassium 4.0 Chloride 101 Carbon Dioxide 31 Anion Gap 9 L BUN 14 Creatinine 0.7 L Est GFR ( Amer) > 60 Est GFR (Non-Af Amer) > 60 Random Glucose 105 Calcium 8.3 L Phosphorus 3.3 Magnesium 2.2 Total Bilirubin 1.0 AST 23 ALT 22 Alkaline Phosphatase 69 Troponin I 0.01 NT-Pro-B Natriuret Pep 1410 H Total Protein 6.9 Albumin 3.4 Globulin 3.5 Albumin/Globulin Ratio 1.0 L 07/30/18 06:00 WBC RBC Hgb Hct MCV MCH MCHC RDW Plt Count MPV Gran % Lymph % (Auto) [place] % (Auto) Eos % (Auto) Baso % (Auto) Gran # Lymph # (Auto) [place] # (Auto) Eos # (Auto) Baso # (Auto) Sodium 139 Potassium 4.1 Chloride 103 Carbon Dioxide 32 Anion Gap 8 L BUN 12 Creatinine 0.8 Est GFR ( Amer) > 60 Est GFR (Non-Af Amer) > 60 Random Glucose 99 Calcium 8.1 L Phosphorus Magnesium Total Bilirubin 0.7 AST 24 ALT 27 Alkaline Phosphatase 72 Troponin I NT-Pro-B Natriuret Pep Total Protein 6.2 Albumin 2.9 L Globulin 3.3 Albumin/Globulin Ratio 0.9 L Assessment & Plan - Assessment and Plan (Free Text) Assessment: 63 yo M with PMH of UC, prostate CA, and orthostatic hypotension admitted for hypotension and r/o seizure. Plan: - CT head negative - MRI Brain with and with contrast ordered Patient seen and discussed in detail with Dr. Mcclelland. Domo Krishnamurthy DO PGY2
--- NOTE | 2018-07-30 16:31 | CARD ---
APPROVED REPORT Date of service: 07/29/2018 EKG Measurement Heart [id number] <Conclusion> Normal sinus rhythm Normal ECG
--- NOTE | 2018-07-30 17:44 | CP.PCM.PN ---
<Marli Campbell - Last Filed: 07/30/18 17:26> Subjective - Date & Time of Evaluation Date of Evaluation: 07/30/18 Time of Evaluation: 08:45 - Subjective Subjective: PGY1 Medicine Progress Note for Dr. Anderson Patient was seen and evaluated at bedside this morning. No acute events overnight. Patient has no complaints. Patient was able to tolerate breakfast. Patient admits to feeling dizzy with standing up and going to the bathroom. Patient otherwise denies nausea, vomiting, headache, abdominal pain, chest pain, shortness of breath, fever, and/or chills. Objective - Vital Signs/Intake and Output Vital Signs (last 24 hours): Temp Pulse Resp BP Pulse Ox 98.5 F 68 18 96/63 L 98 07/30/18 10:00 07/30/18 10:00 07/30/18 06:00 07/30/18 06:00 07/30/18 06:00 Intake and Output: 07/30/18 07/30/18 06:59 18:59 Intake Total 760 Balance 760 - Medications Medications: Current Medications Fludrocortisone Acetate (Florinef) 0.1 mg PO BID [facility] Last Admin: 07/30/18 10:16 Dose: 0.1 mg Sodium Chloride (Sodium Chloride 0.9%) 1,000 mls @ 75 mls/hr IV .[id number] [facility] Stop: 07/30/18 17:54 Last Admin: 07/30/18 10:19 Dose: 75 mls/hr Midodrine (Proamatine) 5 mg PO BID [facility] Last Admin: 07/30/18 10:16 Dose: 5 mg Non-Formulary Medication (Mesalamine [Apriso]) 4 cap PO DAILY [facility] Last Admin: 07/30/18 10:18 Dose: 4 cap - Labs Labs: 07/30/18 06:00 07/30/18 06:00 - Additional Findings Additional findings: - Constitutional Appears: No Acute Distress - Head Exam Head Exam: ATRAUMATIC, NORMAL INSPECTION, NORMOCEPHALIC - Eye Exam Eye Exam: Normal appearance, PERRL Pupil Exam: NORMAL ACCOMODATION - ENT Exam ENT Exam: Mucous Membranes Moist - Respiratory Exam Respiratory Exam: Clear to Auscultation Bilateral, NORMAL BREATHING PATTERN. absent: Rales, Rhonchi, Wheezes - Cardiovascular Exam Cardiovascular Exam: REGULAR RHYTHM, +S1, +S2. absent: Gallop, Rubs, Systolic Murmur - GI/Abdominal Exam GI & Abdominal Exam: Normal Bowel Sounds, Soft. absent: Guarding, Mass, Rebound, Rigid, Tenderness - Extremities Exam Extremities exam: Positive for: normal inspection. Negative for: calf tenderness, pedal edema - Neurological Exam Neurological exam: Alert, CN II-XII Intact, Oriented x3 - Psychiatric Exam Psychiatric exam: Normal Affect, Normal Mood - Skin Skin Exam: Dry, Intact, Warm Assessment and Plan - Assessment and Plan (Free Text) Assessment: Mr. Weaver is a 63-year-old male with past medical history of Orthostatic Hypotension, Ulcerative Colitis, and Prostate CA (s/p laser treatment), who came to [facility] ED for low blood pressure and dizziness. Patient was found to have positive orthostatics. secondary to orthostatic hypotension versus partial seizure. Plan: Dizziness Likely Secondary to Orthostatic Hypotension - Positive Orthostatics - Continue to monitor orthostatics - Rule-Out Seizures - Midodrine 5mg PO BID - Start: Florinef 0.1mg PO BID - IVF: NS @75 - Neuro consulted (Dr. Mcclelland); recommendations appreciated * MRI Brain without / with contrast: ordered - Cardio consulted (Dr. Osuna); recommendations appreciated * Follow-up Lipid Panel * Follow-up CMP, Phos, Mag, TSH/Free T4 - Head CT without contrast 07/29/18: Negative - Seizure/fall precautions: - PT evaluation and treatment History of Ulcerative colitis - Currently not in a flare - Continue Mesalamine - Diet: Low dairy PPx: - Aspiration precautions - Seizure precautions - GI: Not indicated at this time - DVT: SCDs Patient seen and case discussed with Dr. Justin Campbell PGY1 <Cleve Anderson - Last Filed: 07/30/18 17:52> Objective - Vital Signs/Intake and Output Vital Signs (last 24 hours): Temp Pulse Resp BP Pulse Ox 98.5 F 68 18 96/63 L 98 07/30/18 10:00 07/30/18 10:00 07/30/18 06:00 07/30/18 06:00 07/30/18 06:00 Intake and Output: 12/07/18 12/07/18 06:59 18:59 Intake Total 760 Balance 760 - Medications Medications: Current Medications Fludrocortisone Acetate (Florinef) 0.1 mg PO BID [facility] Last Admin: 07/30/18 10:16 Dose: 0.1 mg Sodium Chloride (Sodium Chloride 0.9%) 1,000 mls @ 75 mls/hr IV .[id number] [facility] Stop: 07/30/18 17:54 Last Admin: 07/30/18 10:19 Dose: 75 mls/hr Midodrine (Proamatine) 5 mg PO BID [facility] Last Admin: 07/30/18 10:16 Dose: 5 mg Non-Formulary Medication (Mesalamine [Apriso]) 4 cap PO DAILY [facility] Last Admin: 07/30/18 10:18 Dose: 4 cap - Labs Labs: 07/30/18 06:00 07/30/18 06:00 Attending/Attestation - Attestation I have personally seen and examined this patient.: Yes I have fully participated in the care of the patient.: Yes I have reviewed all pertinent clinical information, including history, physical exam and plan: Yes Notes (Text): Orthostatic hypotension: + orthostatics on exam c/w midodrine, pt started on florinef by cardio fall precautions Neuro on board to r/o possible underlying seizures - MRI, EEG 07/30/18 17:50
[2018-07-30] MEDS ORDERED: Gadodiamide 287 MG/ML VIAL (15ML) IV ONE (21:21)
[2018-07-31] MEDS: Pantoprazole 20 mg EC Tab PO SCH (05:22)
[2018-07-31 08:36] LABS: BASO # 0.01 K/mm3 (0.0-2.0); BASO % 0.2 % (0.0-3.0); EOS % 0.3 % (1.5-5.0); GRAN # 5.1 (1.4-6.5); GRAN % 81.7 % (50.0-68.0); HEMOGLOBIN 9.7 g/dL (14.0-18.0); LYMPH # 0.7 (1.2-3.4); LYMPH % 11.5 % (22.0-35.0); MEAN CELL VOLUME 86.8 fl (80.0-105.0); MEAN CORPUSCULAR HEMOGLOBIN 27.9 pg (25.0-35.0); MEAN CORPUSCULAR HGB CONC 32.1 g/dl (31.0-37.0); MEAN PLATELET VOLUME 9.4 fl (7.0-11.0); MONO # 0.4 (0.1-0.6); MONO % 6.3 % (1.0-6.0); RBC 3.48 10^6/uL (3.5-6.1); RED CELL DISTRIBUTION WIDTH 13.7 % (11.5-14.5); WHITE BLOOD COUNT 6.2 10^3/uL (4.5-11.0)
[2018-07-31 08:58] LABS: ALB/GLOB RATIO 0.9 (1.1-1.8); ALBUMIN 2.8 g/dL (3.0-4.8); ALT/SGPT 31 U/L (7-56); AST/SGOT 22 U/L (17-59); BLOOD UREA NITROGEN 10 mg/dL (7-21); CALCIUM 8.1 mg/dL (8.4-10.5); GFR NON-AFRICAN AMERICAN > 60; HDL CHOLESTEROL 28 mg/dL (29-60)
[2018-07-31 09:08] LABS: LDL CHOLESTEROL 68 mg/dL (0-129)
--- NOTE | 2018-07-31 10:35 | MRI ---
Date of service: 07/30/2018 PROCEDURE: MRI BRAIN WITH AND WITHOUT CONTRAST HISTORY: seizure COMPARISON: None available. TECHNIQUE: Multiplanar, multisequence MR images of the brain were obtained with and without intravenous contrast enhancement. FINDINGS: HEMORRHAGE: None DWI: No evidence of an acute or early subacute infarction. BRAIN PARENCHYMA: No mass,mass effect or edema. No atrophy or chronic microvascular ischemic changes. ENHANCEMENT: No abnormal intracranial enhancement. VENTRICLES: Unremarkable. No hydrocephalus. CRANIUM: Unremarkable. ORBITS: Grossly unremarkable. PARANASAL SINUSES/MASTOIDS: Clear VASCULAR SYSTEM: Skull base flow voids intact. OTHER FINDINGS: The report concurs with the preliminary [facility] report. IMPRESSION: No acute intracranial findings.
--- NOTE | 2018-07-31 11:21 | CP.PCM.PN ---
Subjective - Date & Time of Evaluation Date of Evaluation: 07/31/18 Time of Evaluation: 06:35 - Subjective Subjective: Awake, alert, no distress Reason for consultation and follow up: Cardiac evaluation of syncope, positive for postural hypotension Seen and examined by me and Dr. Osuna Objective - Vital Signs/Intake and Output Vital Signs (last 24 hours): Temp Pulse Resp BP Pulse Ox 98.8 F 79 20 83/52 L 96 07/31/18 06:00 07/31/18 09:47 07/31/18 06:00 07/31/18 09:47 07/31/18 06:00 Intake and Output: 07/31/18 07/31/18 06:59 18:59 Intake Total 600 Output Total 500 Balance 100 - Medications Medications: Current Medications Fludrocortisone Acetate (Florinef) 0.1 mg PO BID [facility] Last Admin: 07/31/18 09:41 Dose: 0.1 mg Midodrine (Proamatine) 5 mg PO BID [facility] Last Admin: 07/31/18 09:42 Dose: 5 mg Non-Formulary Medication (Mesalamine [Apriso]) 4 cap PO DAILY [facility] Last Admin: 07/30/18 10:18 Dose: 4 cap Pantoprazole Sodium (Protonix Ec Tab) 20 mg PO 0600 [facility] Last Admin: 07/31/18 05:22 Dose: 20 mg - Labs Labs: 07/31/18 08:15 07/31/18 08:15 - Constitutional Appears: Non-toxic, No Acute Distress - Head Exam Head Exam: NORMAL INSPECTION, NORMOCEPHALIC - Eye Exam Eye Exam: Normal appearance Pupil Exam: NORMAL ACCOMODATION - ENT Exam ENT Exam: Mucous Membranes Moist, Normal Exam - Respiratory Exam Respiratory Exam: Clear to Ausculation Bilateral, NORMAL BREATHING PATTERN - Cardiovascular Exam Cardiovascular Exam: REGULAR RHYTHM, +S1, +S2 - GI/Abdominal Exam GI & Abdominal Exam: Soft, Normal Bowel Sounds - Extremities Exam Extremities Exam: Full ROM, Normal Capillary Refill - Neurological Exam Neurological Exam: Alert, Awake, Oriented x3 - Psychiatric Exam Psychiatric exam: Normal Affect, Normal Mood - Skin Skin Exam: Dry, Normal Color, Warm Assessment and Plan - Assessment and Plan (Free Text) Assessment: A 63 year old male who came in to the ER due to syncopal episode. He has history of positive postural hypotension, on Midorine. History of ulcerative colitis, prostate cancer, post laser surgery a year ago, bilateral eye surgery, former smoker. Echo done on 03/06/2018 showed good LV function, trace TR and no p ulmonary hypertension.03/12/18 stress test normal. Orthostatic hypotension. Plan: Denies dizziness or chest pain Heart rate stable Blood pressure stable Continue Midorine Orthostatic vital signs pending Continue current treatment Continue current medications Will follow up Plan and treatment discussed with Dr. Osuna
[2018-07-31] MEDS: MESALAMINE PO SCH (12:31)
--- NOTE | 2018-07-31 13:49 | CP.PCM.PN ---
<ElizabethTony - Last Filed: 07/31/18 14:50> Subjective - Date & Time of Evaluation Date of Evaluation: 07/31/18 Time of Evaluation: 13:30 - Subjective Subjective: Medicine progress note - Elizabeth, PGY - 2 Patient seen and examined at bedside. No new acute complaints. Patient tolerated food well. Patient states dizziness is a little bit better. Objective - Vital Signs/Intake and Output Vital Signs (last 24 hours): Temp Pulse Resp BP Pulse Ox 98.8 F 79 20 83/52 L 96 07/31/18 06:00 07/31/18 09:47 07/31/18 06:00 07/31/18 09:47 07/31/18 06:00 Intake and Output: 07/31/18 07/31/18 06:59 18:59 Intake Total 600 Output Total 500 Balance 100 - Medications Medications: Current Medications Fludrocortisone Acetate (Florinef) 0.1 mg PO BID [facility] Last Admin: 07/31/18 09:41 Dose: 0.1 mg Midodrine (Proamatine) 5 mg PO BID [facility] Last Admin: 07/31/18 09:42 Dose: 5 mg Non-Formulary Medication (Mesalamine [Apriso]) 4 cap PO DAILY [facility] Last Admin: 07/31/18 12:31 Dose: Not Given Pantoprazole Sodium (Protonix Ec Tab) 20 mg PO 0600 [facility] Last Admin: 07/31/18 05:22 Dose: 20 mg - Labs Labs: 07/31/18 08:15 07/31/18 08:15 - Constitutional Appears: Well - Head Exam Head Exam: ATRAUMATIC, NORMAL INSPECTION, NORMOCEPHALIC - Eye Exam Eye Exam: EOMI, Normal appearance, PERRL Pupil Exam: NORMAL ACCOMODATION, PERRL - ENT Exam ENT Exam: Mucous Membranes Moist, Normal Exam - Neck Exam Neck Exam: Full ROM, Normal Inspection. absent: Lymphadenopathy - Respiratory Exam Respiratory Exam: Clear to Ausculation Bilateral, NORMAL BREATHING PATTERN - Cardiovascular Exam Cardiovascular Exam: REGULAR RHYTHM, +S1, +S2. absent: Murmur - GI/Abdominal Exam GI & Abdominal Exam: Soft, Normal Bowel Sounds. absent: Tenderness - Extremities Exam Extremities Exam: Full ROM, Normal Capillary Refill, Normal Inspection. absent: Joint Swelling, Pedal Edema - Back Exam Back Exam: NORMAL INSPECTION - Neurological Exam Neurological Exam: Alert, Awake, CN II-XII Intact, Normal Gait, Oriented x3 - Psychiatric Exam Psychiatric exam: Normal Affect, Normal Mood - Skin Skin Exam: Dry, Intact, Normal Color, Warm Assessment and Plan - Assessment and Plan (Free Text) Assessment: 63 M with pertinent medical history of Orthostatic Hypotension, Ulcerative C olitis, and Prostate CA (s/p laser treatment), presented on 07/29 with low blood pressure and dizziness. Patient has since been found to have normal electrolytes, normal TSH, and no acute head injuries (MRI brain was negative, official report done today, 07/31/18. Patient was febrile at one point, but remains without a white count or other SIRS criteria. UA was ordered but has yet to be collected. Vitals review reveals orthostatic hypotension. Patient may have low intravascular volume 2/2 his decreased albumin - UA will give us more insight about if there is any nephrotic proteinuria. Orthostatic Hypotension - EEG yet to be done - Midodrine 5mg PO BID - Start: Florinef 0.1mg PO BID - IVF: NS @75 - Neuro consulted (Dr. Mcclelland); recommendations appreciated - Cardio consulted (Dr. Osuna); recommendations appreciated - Seizure, Fall, Aspiration precautions - PT evaluation and treatment History of Ulcerative colitis - Currently not in a flare - Continue Mesalamine - Diet: Low dairy Prophylaxis - GI: Not indicated at this time - DVT: SCDs <Domenica Chan R - Last Filed: 08/01/18 07:40> Objective - Vital Signs/Intake and Output Vital Signs (last 24 hours): Temp Pulse Resp BP Pulse Ox 99.7 F H 70 18 116/67 97 08/01/18 06:00 08/01/18 06:00 08/01/18 06:00 08/01/18 06:00 08/01/18 06:00 Intake and Output: 08/01/18 08/01/18 06:59 18:59 Intake Total 300 Output Total 2 Balance 298 - Medications Medications: Current Medications Fludrocortisone Acetate (Florinef) 0.1 mg PO BID [facility] Last Admin: 07/31/18 18:00 Dose: 0.1 mg Midodrine (Proamatine) 5 mg PO BID [facility] Last Admin: 07/31/18 18:01 Dose: 5 mg Non-Formulary Medication (Mesalamine [Apriso]) 4 cap PO DAILY [facility] Last Admin: 07/31/18 12:31 Dose: Not Given Pantoprazole Sodium (Protonix Ec Tab) 20 mg PO 0600 [facility] Last Admin: 08/01/18 05:55 Dose: 20 mg - Labs Labs: 07/31/18 08:15 07/31/18 08:15 Attending/Attestation - Attestation I have personally seen and examined this patient.: Yes I have fully participated in the care of the patient.: Yes I have reviewed all pertinent clinical information, including history, physical exam and plan: Yes Notes (Text): Patient seen and examined by me with resident at 8:55AM on 07/31/18. Case including HPI, physical exam, and assessment and plan discussed with resident. Agree with above with following additions/corrections. Patient is a 63-year-old male with past medical history significant for ulcerative colitis, prostate cancer, and orthostatic hypotension that presented to the emergency room for low blood pressure and dizziness. Patient states he is feeling ok. States he is only feeling dizzy if he stands for a long time. No current headaches or dizziness. No lightheadedness. No nausea, vomiting, or abdominal pain. No fevers or chills. No shortness of breath. No chest pain or palpitations. No dysuria. Physical exam: General: Awake and alert sititng up in bed in no acute distress HEENT: Normocephalic, atraumatic. Extraocular muscles intact, pupils equal and reactive, no scleral icterus. Oropharynx is pink and moist. Neck is supple. Cardiovascular: Regular rhythm. Normal S1 and S2. No murmurs, rubs, or gallops appreciated Pulmonary: Normal respiratory effort. No rhonchi, rales, or wheezing appreciated. Gastrointestinal: Soft, nondistended. Nontender. Positive bowel sounds all 4 quadrants. No guarding. Musculoskeletal: Moves all extremities. No calf tenderness. No edema appreciated Central nervous system: AAOx3 Dermatologic: Skin warm and dry. Assessment and plan: Patient is a 63-year-old male with past medical history significant for ulcerative colitis, prostate cancer, and orthostatic hypotension that presented to the emergency room for low blood pressure and dizziness. 1. Dizziness. Likely secondary to orthostatic hypotension. Neurology following, recommendations appreciated. Brain MRI per radiologist shows no acute intracranial findings. Head CT per radiologist showed no acute intracranial findings. Cardiology following, recommendations appreciated. Patient to continue midodrine. Continue Florinef. Patient seen by physical therapy who recommends subacute rehab. 2. Gait instability. Continue physical therapy. Continue fall precautions. Pending subacute rehabilitation placement. 3. Anemia. H&H downtrending. Get stool for occult blood. No acute signs of bleeding. Continue to monitor CBC. 4. Ulcerative colitis. Not in acute exacerbation. Continue mesalamine. 5. GI/DVT prophylaxis. Protonix/SCDs. 6. Patient is a full code Case was discussed in detail with the patient regarding current diagnosis and treatment plan. All questions answered.
[2018-07-31 18:21] LABS: URINE BILIRUBIN NEGATIVE (NEGATIVE); URINE BLOOD TRACE-INTACT (NEGATIVE); URINE GLUCOSE (UA) NEGATIVE (NEGATIVE); URINE LEUKOCYTE ESTERASE LARGE Leu/uL (NEGATIVE); URINE PROTEIN 30 mg/dL (<30 mg/dL); URINE UROBILINOGEN 0.2 E.U./dL (<1 E.U./dL)
[2018-07-31 18:22] LABS: URINE APPEARANCE TURBID (CLEAR); URINE COLOR YELLOW (YELLOW)
[2018-07-31 18:34] LABS: URINE BACTERIA MANY (NEG); URINE WBC TNTC /hpf (0-6)
[2018-08-01] MEDS: Pantoprazole 20 mg EC Tab PO SCH (05:55)
--- NOTE | 2018-08-01 08:25 | CP.PCM.PN ---
Subjective - Date & Time of Evaluation Date of Evaluation: 08/01/18 Time of Evaluation: 06:20 - Subjective Subjective: Lying in bed, awake, alert, no distress Reason for consultation and follow up: Cardiac evaluation of syncope, positive for postural hypotension Seen and examined by me and Dr. Osuna Objective - Vital Signs/Intake and Output Vital Signs (last 24 hours): Temp Pulse Resp BP Pulse Ox 99.7 F H 66 19 75/28 L 98 08/01/18 06:00 08/01/18 06:01 08/01/18 06:01 08/01/18 06:02 08/01/18 06:01 Intake and Output: 08/01/18 08/01/18 06:59 18:59 Intake Total 300 Output Total 2 Balance 298 - Medications Medications: Current Medications Fludrocortisone Acetate (Florinef) 0.1 mg PO BID [facility] Last Admin: 07/31/18 18:00 Dose: 0.1 mg Ceftriaxone Sodium (Rocephin 1 Gram Ivpb) 1 gm in 100 mls @ 100 mls/hr IVPB DAILY [facility]; Protocol Midodrine (Proamatine) 5 mg PO BID [facility] Last Admin: 07/31/18 18:01 Dose: 5 mg Non-Formulary Medication (Mesalamine [Apriso]) 4 cap PO DAILY [facility] Last Admin: 07/31/18 12:31 Dose: Not Given Pantoprazole Sodium (Protonix Ec Tab) 20 mg PO 0600 [facility] Last Admin: 08/01/18 05:55 Dose: 20 mg - Labs Labs: 07/31/18 08:15 07/31/18 08:15 - Constitutional Appears: Non-toxic, No Acute Distress - Head Exam Head Exam: NORMAL INSPECTION, NORMOCEPHALIC - Eye Exam Eye Exam: Normal appearance Pupil Exam: NORMAL ACCOMODATION - ENT Exam ENT Exam: Mucous Membranes Moist, Normal Exam - Respiratory Exam Respiratory Exam: Clear to Ausculation Bilateral, NORMAL BREATHING PATTERN - Cardiovascular Exam Cardiovascular Exam: REGULAR RHYTHM, +S1, +S2 - GI/Abdominal Exam GI & Abdominal Exam: Soft, Normal Bowel Sounds - Extremities Exam Extremities Exam: Full ROM, Normal Capillary Refill - Neurological Exam Neurological Exam: Alert, Awake, Oriented x3 - Psychiatric Exam Psychiatric exam: Normal Affect, Normal Mood - Skin Skin Exam: Dry, Normal Color, Warm Assessment and Plan - Assessment and Plan (Free Text) Assessment: A 63 year old male who came in to the ER due to syncopal episode. He has history of positive postural hypotension, on Midorine. History of ulcerative colitis, prostate cancer, post laser surgery a year ago, bilateral eye surgery, former smoker. Echo done on 03/06/2018 showed good LV function, trace TR and no pulmonary hypertension.03/12/18 stress test normal. Orthostatic hypotension.Started NSS for gentle hydration. Plan: Orthostatic vital signs Lying BP 118/68 Sitting BP 93/56 Standing BP 75/48 Will start NSS at 50 cc/hr x 1 liter Denies dizziness or chest pain Heart rate stable Continue Midorine Repeat Orthostatic vital signs tomorrow Started antibiotics for UTI Continue current treatment Continue current medications Will follow up Plan and treatment discussed with Dr. Osuna
[2018-08-01] MEDS: Sodium Chloride 0.9% 1,000 ML IV SCH (08:51)
[2018-08-01] MEDS: cefTRIAXone 1 gm 1 GM/100 ML BAG IVPB SCH (09:00)
[2018-08-01 10:11] LABS: BASO # 0.01 K/mm3 (0.0-2.0); BASO % 0.2 % (0.0-3.0); EOS % 0.2 % (1.5-5.0); GRAN # 4.77 (1.4-6.5); GRAN % 79.3 % (50.0-68.0); HEMOGLOBIN 9.5 g/dL (14.0-18.0); LYMPH # 0.8 (1.2-3.4); LYMPH % 12.6 % (22.0-35.0); MEAN CELL VOLUME 86.4 fl (80.0-105.0); MEAN CORPUSCULAR HEMOGLOBIN 28.7 pg (25.0-35.0); MEAN CORPUSCULAR HGB CONC 33.2 g/dl (31.0-37.0); MEAN PLATELET VOLUME 8.9 fl (7.0-11.0); MONO # 0.5 (0.1-0.6); MONO % 7.7 % (1.0-6.0); RBC 3.31 10^6/uL (3.5-6.1); RED CELL DISTRIBUTION WIDTH 13.5 % (11.5-14.5)
[2018-08-01 10:31] LABS: BLOOD UREA NITROGEN 8 mg/dL (7-21); CALCIUM 7.9 mg/dL (8.4-10.5); GFR NON-AFRICAN AMERICAN > 60
--- NOTE | 2018-08-01 14:33 | CP.PCM.PN ---
<Sridhar Lucia - Last Filed: 08/01/18 14:23> Subjective - Date & Time of Evaluation Date of Evaluation: 08/01/18 Time of Evaluation: 14:24 - Subjective Subjective: Internal Medicine Progress Note (Hospitalist's Service) Patient seen and assessed at bedside. Patient noted to be hypotensive overnight. At this time he denies any complaints and 12 point ROS is unremarkable. Objective - Vital Signs/Intake and Output Vital Signs (last 24 hours): Temp Pulse Resp BP Pulse Ox 99.4 F 69 17 113/71 98 08/01/18 12:00 08/01/18 12:00 08/01/18 12:00 08/01/18 12:00 08/01/18 06:01 Intake and Output: 08/01/18 08/01/18 06:59 18:59 Intake Total 300 Output Total 2 Balance 298 - Medications Medications: Current Medications Fludrocortisone Acetate (Florinef) 0.2 mg PO BID [facility] Ceftriaxone Sodium (Rocephin 1 Gram Ivpb) 1 gm in 100 mls @ 100 mls/hr IVPB DAILY [facility]; Protocol Last Admin: 08/01/18 09:00 Dose: 100 mls/hr Sodium Chloride (Sodium Chloride 0.9%) 1,000 mls @ 50 mls/hr IV .Q20H [facility] Last Admin: 08/01/18 08:51 Dose: 50 mls/hr Midodrine (Proamatine) 10 mg PO BID [facility] Non-Formulary Medication (Mesalamine [Apriso]) 4 cap PO DAILY [facility] Last Admin: 07/31/18 12:31 Dose: Not Given Pantoprazole Sodium (Protonix Ec Tab) 20 mg PO 0600 [facility] Last Admin: 08/01/18 05:55 Dose: 20 mg - Labs Labs: 08/01/18 10:00 08/01/18 10:00 - Additional Findings Additional findings: - Constitutional Appears: Well - Head Exam Head Exam: ATRAUMATIC, NORMAL INSPECTION, NORMOCEPHALIC - Eye Exam Eye Exam: EOMI, Normal appearance, PERRL Pupil Exam: NORMAL ACCOMODATION, PERRL - ENT Exam ENT Exam: Mucous Membranes Moist, Normal Exam - Neck Exam Neck Exam: Full ROM, Normal Inspection. absent: Lymphadenopathy - Respiratory Exam Respiratory Exam: Clear to Ausculation Bilateral, NORMAL BREATHING PATTERN - Cardiovascular Exam Cardiovascular Exam: REGULAR RHYTHM, +S1, +S2. absent: Murmur - GI/Abdominal Exam GI & Abdominal Exam: Soft, Normal Bowel Sounds. absent: Tenderness - Extremities Exam Extremities Exam: Full ROM, Normal Capillary Refill, Normal Inspection. absent: Joint Swelling, Pedal Edema - Back Exam Back Exam: NORMAL INSPECTION - Neurological Exam Neurological Exam: Alert, Awake, CN II-XII Intact, Normal Gait, Oriented x3 - Psychiatric Exam Psychiatric exam: Normal Affect, Normal Mood - Skin Skin Exam: Dry, Intact, Normal Color, Warm Assessment and Plan - Assessment and Plan (Free Text) Assessment: 63 year old male with a past medical history significant for UC, prostate cancer, and orthostatic hypotension that presented with low blood pressure and dizziness. Plan: 1. Orthostatic Hypotension -MRI Brain unremarkable for acute pathology -CT Head without any acute IC abnormalities -EEG not indicated at this time, as per Neurology -Orthostatic VS noted -Gentle IVF with Normal Saline at 50mls/hr, as per cardiology -Increased Florinef to 0.2mg PO BID -Increased Midodrine to 10mg PO BID -Continue seizure, fall and aspiration precautions -PT recommending [facility]NN placement upon discharge -Neurology, Cardiology, PT, and SW consulted, all recommendations appreciated 2. UTI -See urinalysis results -Started Rocephin 1gm IVPB daily for empiric coverage -Urine cultures pending 3. Normocytic Anemia -H/H stable at 9.5/28.6 -FOBT pending -Continue to monitor with daily CBC's 4. History of UC -Continue home Mesalamine GI Prophylaxis: Protonix DVT Prophylaxis: SCD's Diet: Heart Healthy Code Status: Full Code Patient seen and case discussed with attending, Dr. Domenica Chan. Sridhar Lucia PGY2 <Domenica Chan R - Last Filed: 08/02/18 21:38> Objective - Vital Signs/Intake and Output Vital Signs (last 24 hours): Temp Pulse Resp BP Pulse Ox 98 F 68 18 105/66 99 08/02/18 14:00 08/02/18 14:00 08/02/18 14:00 08/02/18 14:00 08/02/18 14:00 - Medications Medications: Current Medications Fludrocortisone Acetate (Florinef) 0.2 mg PO BID [facility] Last Admin: 08/02/18 17:26 Dose: 0.2 mg Ceftriaxone Sodium (Rocephin 1 Gram Ivpb) 1 gm in 100 mls @ 100 mls/hr IVPB DAILY [facility]; Protocol Last Admin: 08/02/18 09:33 Dose: 100 mls/hr Sodium Chloride (Sodium Chloride 0.9%) 1,000 mls @ 50 mls/hr IV .Q20H [facility] Last Admin: 08/02/18 04:28 Dose: 50 mls/hr Midodrine (Proamatine) 10 mg PO BID [facility] Last Admin: 08/02/18 17:28 Dose: 10 mg Non-Formulary Medication (Mesalamine [Apriso]) 4 cap PO DAILY [facility] Last Admin: 08/02/18 09:32 Dose: 4 cap Pantoprazole Sodium (Protonix Ec Tab) 20 mg PO 0600 [facility] Last Admin: 08/02/18 05:13 Dose: 20 mg - Labs Labs: 08/02/18 06:00 08/02/18 06:00 Attending/Attestation - Attestation I have personally seen and examined this patient.: Yes I have fully participated in the care of the patient.: Yes I have reviewed all pertinent clinical information, including history, physical exam and plan: Yes Notes (Text): Patient seen and examined by me with resident at 9:10 AM on 08/01/18. Case including HPI, physical exam, and assessment and plan discussed with resident. Agree with above with following additions/corrections. Patient is a 63-year-old male with past medical history significant for ulcerative colitis, prostate cancer, and orthostatic hypotension that presented to the emergency room for low blood pressure and dizziness. Patient states he is feeling ok. Patient states that he is unable to walk a short distance without feeling dizzy. No dizziness when sitting or lying down. No lightheadedness. No nausea, vomiting, or abdominal pain. No fevers or chills. No shortness of breath. No chest pain or palpitations. No dysuria. Physical exam: General: Awake and alert sititng up in bed in no acute distress HEENT: Normocephalic, atraumatic. Extraocular muscles intact, pupils equal and reactive, no scleral icterus. Oropharynx is pink and moist. Neck is supple. Cardiovascular: Regular rhythm. Normal S1 and S2. No murmurs, rubs, or gallops appreciated Pulmonary: Normal respiratory effort. No rhonchi, rales, or wheezing appreciated. Gastrointestinal: Soft, nondistended. Nontender. Positive bowel sounds all 4 quadrants. No guarding. Musculoskeletal: Moves all extremities. No calf tenderness. No edema appreciated Central nervous system: AAOx3 Dermatologic: Skin warm and dry. Assessment and plan: Patient is a 63-year-old male with past medical history significant for ulcerative colitis, prostate cancer, and orthostatic hypotension that presented to the emergency room for low blood pressure and dizziness. 1. Dizziness. Likely secondary to orthostatic hypotension. Neurology following, recommendations appreciated, unlikely seizure. Brain MRI per radiologist shows no acute intracranial findings. Head CT per radiologist showed no acute intracranial findings. Cardiology following, recommendations appreciated. Patient to continue midodrine. Florinef dosing increased today. Placed on IV fluids. Patient seen by physical therapy who recommends subacute rehab. 2. UTI. Urinalysis appears to be positive for UTI. Started on Rocephin. Pending urine culture. 3. Gait instability. Continue physical therapy. Continue fall precautions. [facility] subacute rehabilitation placement. 4. Anemia. H&H slowly downtrending. Pending stool for occult blood. No acute signs of bleeding. Continue to monitor CBC. 4. Ulcerative colitis. Not in acute exacerbation. Continue mesalamine. 5. GI/DVT prophylaxis. Protonix/SCDs. 6. Patient is a full code Case was discussed in detail with the patient regarding current diagnosis and treatment plan. All questions answered.
[2018-08-01] MEDS: MESALAMINE PO SCH (17:11)
[2018-08-02] MEDS: Sodium Chloride 0.9% 1,000 ML IV SCH (04:28)
[2018-08-02] MEDS: Pantoprazole 20 mg EC Tab PO SCH (05:13)
[2018-08-02 06:30] LABS: BASO # 0.01 K/mm3 (0.0-2.0); BASO % 0.2 % (0.0-3.0); EOS % 0.2 % (1.5-5.0); GRAN # 4.03 (1.4-6.5); GRAN % 73.4 % (50.0-68.0); HEMOGLOBIN 8.9 g/dL (14.0-18.0); MEAN CELL VOLUME 85.8 fl (80.0-105.0); MEAN CORPUSCULAR HEMOGLOBIN 28.2 pg (25.0-35.0); MEAN CORPUSCULAR HGB CONC 32.8 g/dl (31.0-37.0); MONO # 0.5 (0.1-0.6); MONO % 8.2 % (1.0-6.0); RBC 3.16 10^6/uL (3.5-6.1); RED CELL DISTRIBUTION WIDTH 13.4 % (11.5-14.5); WHITE BLOOD COUNT 5.5 10^3/uL (4.5-11.0)
[2018-08-02 06:41] LABS: BLOOD UREA NITROGEN 6 mg/dL (7-21); CALCIUM 7.6 mg/dL (8.4-10.5); GFR NON-AFRICAN AMERICAN > 60
--- NOTE | 2018-08-02 08:14 | PN ---
DATE: 08/01/2018 The patient is in room 264, bed 2. Detailed note has been already written by Dr. Willie King. This is an addendum to that. The patient is still developing postural hypotension with blood pressure lying down 113/71, sitting 89/60, standing 78/48. So, I discussed with Dr. Chan and we are going to increase the Florinef to 0.2 mg b.i.d. The patient is already on midodrine 10 mg p.o. b.i.d. which is also being increased now, before he was on 5 b.i.d., now he is on 10 b.i.d., and we will continue antibiotic and IV fluids and we will monitor blood pressure. We will follow. Bryanna Osuna MD
[2018-08-02] MEDS ORDERED: Potassium Chloride 20 mEq ER Tab PO STA (08:52)
[2018-08-02] MEDS: MESALAMINE PO SCH (09:32)
[2018-08-02] MEDS: cefTRIAXone 1 gm 1 GM/100 ML BAG IVPB SCH (09:33)
--- NOTE | 2018-08-02 12:17 | CP.PCM.PN ---
<Leonor Vicente - Last Filed: 08/02/18 16:27> Subjective - Date & Time of Evaluation Date of Evaluation: 08/02/18 Time of Evaluation: 07:15 - Subjective Subjective: Internal Medicine progress note for Dr. Mcpherson Patient seen and examined this am at bedside. NAEO per nursing. Patient is resting comfortably in bed and has no complaints. He is able to sit up but indicates that he is continuing to have difficulty walking to and from the bathroom due to weakness. He otherwise denies ALVA, CP, SOB, n/v, f/c and extremity pain. Objective - Vital Signs/Intake and Output Vital Signs (last 24 hours): Temp Pulse Resp BP Pulse Ox 99.4 F 72 18 110/76 97 08/02/18 06:00 08/02/18 06:00 08/02/18 06:00 08/02/18 06:00 08/01/18 18:00 Intake and Output: 08/02/18 08/02/18 06:59 18:59 Intake Total 1660 Output Total 1220 Balance 440 - Medications Medications: Current Medications Fludrocortisone Acetate (Florinef) 0.2 mg PO BID [facility] Last Admin: 08/02/18 09:32 Dose: 0.2 mg Ceftriaxone Sodium (Rocephin 1 Gram Ivpb) 1 gm in 100 mls @ 100 mls/hr IVPB DAILY [facility]; Protocol Last Admin: 08/02/18 09:33 Dose: 100 mls/hr Sodium Chloride (Sodium Chloride 0.9%) 1,000 mls @ 50 mls/hr IV .Q20H [facility] Last Admin: 08/02/18 04:28 Dose: 50 mls/hr Midodrine (Proamatine) 10 mg PO BID [facility] Last Admin: 08/02/18 09:32 Dose: 10 mg Non-Formulary Medication (Mesalamine [Apriso]) 4 cap PO DAILY [facility] Last Admin: 08/02/18 09:32 Dose: 4 cap Pantoprazole Sodium (Protonix Ec Tab) 20 mg PO 0600 [facility] Last Admin: 08/02/18 05:13 Dose: 20 mg - Labs Labs: 08/02/18 06:00 08/02/18 06:00 - Constitutional Appears: Well, Non-toxic, No Acute Distress - Head Exam Head Exam: ATRAUMATIC, NORMOCEPHALIC - Eye Exam Eye Exam: EOMI - ENT Exam ENT Exam: Mucous Membranes Moist - Respiratory Exam Respiratory Exam: NORMAL BREATHING PATTERN - Cardiovascular Exam Cardiovascular Exam: REGULAR RHYTHM - GI/Abdominal Exam GI & Abdominal Exam: Soft. absent: Distended, Guarding, Tenderness - Extremities Exam Extremities Exam: absent: Calf Tenderness, Pedal Edema - Neurological Exam Neurological Exam: Alert, Awake, Oriented x3 - Psychiatric Exam Psychiatric exam: Normal Affect, Normal Mood - Skin Skin Exam: Dry, Intact, Normal Color, Warm Assessment and Plan - Assessment and Plan (Free Text) Assessment: 63 yr old male with UTI and orthostatic hypotension Plan: 1. Orthostatic Hypotension -MRI Brain unremarkable for acute pathology -CT Head without any acute IC abnormalities -EEG not indicated at this time, as per Neurology -Orthostatic VS noted -Gentle IVF with Normal Saline at 50mls/hr, as per cardiology -Florinef 0.2mg PO BID -Midodrine 10mg PO BID -Continue seizure, fall and aspiration precautions -PT recommending BRYNN placement upon discharge -Neurology, Cardiology, PT, and SW consulted, all recommendations appreciated 2. UTI -See urinalysis results -Rocephin 1gm IVPB daily for empiric coverage, Day 2 -Urine cultures showing G- Rods 3. Normocytic Anemia -H/H stable at 8.9/27.1 -FOBT pending -Continue to monitor with daily CBC's 4. History of UC -Continue home Mesalamine GI Prophylaxis: Protonix DVT Prophylaxis: SCD's Diet: Heart Healthy Code Status: Full Code Patient seen, examined and discussed with Dr. Ky Cheng, PGY 1 <Armando Mcpherson - Last Filed: 08/04/18 15:53> Objective - Vital Signs/Intake and Output Vital Signs (last 24 hours): Temp Pulse Resp BP Pulse Ox 98.6 F 64 18 113/75 100 08/04/18 14:00 08/04/18 14:00 08/04/18 14:00 08/04/18 06:00 08/04/18 14:00 Intake and Output: 08/04/18 08/04/18 06:59 18:59 Intake Total 240 Balance 240 - Medications Medications: Current Medications Amoxicillin/Clavulanate Potassium (Augmentin 500 Mg-125 Mg Tab) 1 tab PO Q8 [facility]; Protocol Stop: 08/08/18 15:16 Last Admin: 08/04/18 09:37 Dose: 1 tab Fludrocortisone Acetate (Florinef) 0.2 mg PO TID [facility] Last Admin: 08/04/18 09:37 Dose: 0.2 mg Sodium Chloride (Sodium Chloride 0.9%) 1,000 mls @ 100 mls/hr IV .Q10H [facility] Last Admin: 08/04/18 05:40 Dose: 100 mls/hr Midodrine (Proamatine) 10 mg PO BID [facility] Last Admin: 08/04/18 09:38 Dose: 10 mg Mesalamine [Apriso] 0.375gm Er (Home Med) 4 cap PO DAILY [facility] Pantoprazole Sodium (Protonix Ec Tab) 20 mg PO 0600 [facility] Last Admin: 08/04/18 09:37 Dose: 20 mg - Labs Labs: 08/04/18 07:40 08/04/18 07:40 Attending/Attestation - Attestation I have personally seen and examined this patient.: Yes I have fully participated in the care of the patient.: Yes I have reviewed all pertinent clinical information, including history, physical exam and plan: Yes Notes (Text): 08/04/18 15:46 Attending note; Patient seen and examined with resident. Patient is alert and awake. Denies any abdominal pain. Denies any hematemesis, Melena. Patient is a 63-year-old male with past medical history significant for ulcera tive colitis, prostate cancer, and orthostatic hypotension that presented to the emergency room for low blood pressure and dizziness. 1. Dizziness. secondary to orthostatic hypotension. Neurology recommendations appreciated. Brain MRI shows no acute intracranial findings. Head CT showed no acute intracranial findings. Cardiology recommendations appreciated. Patient to continue midodrine. Florinef dosing increased today. on IV fluids. Patient seen by physical therapy who recommends subacute rehab. 2. UTI. Urinalysis appears to be positive for UTI. on Rocephin. Pending urine culture. 3. Gait instability. Continue physical therapy. Continue fall precautions. Pending subacute rehabilitation placement. 4. Anemia. Chronic. Stool for occult blood is negative. No acute signs of bleeding. 4. Ulcerative colitis. Not in acute exacerbation. Continue mesalamine. 5. GI/DVT prophylaxis. Protonix/SCDs. 6. Patient is a full code The diagnosis and follow-up plan discussed with patient in detail. Patient will follow up with PMD .
--- NOTE | 2018-08-02 19:53 | PN ---
DATE: 08/02/2018 SEX OF THE PATIENT: Male. AGE OF THE PATIENT: 63. TYPE OF DICTATION: Progress note. REASON FOR CONSULTATION: Orthostatic hypotension, postural hypotension. SUBJECTIVE: The patient denies any chest pain, shortness of breath, any palpitation. Appears to be not in apparent distress. PHYSICAL EXAMINATION: As follows: GENERAL: The patient has low-grade fever. VITAL SIGNS: Temperature afebrile, heart rate 75, blood pressure 110/76. In the morning, blood pressure was low 82/60, but no drop on lying down and sitting 82/62, and standing 80/85. HEENT: PERRLA intact. NECK: Supple. No carotid bruit or thyromegaly. CHEST: Clear to auscultation. HEART: S1 and S2, regular. ABDOMEN: Soft. EXTREMITIES: Clubbing and cyanosis negative. IMPRESSION: A 63-year-old male with a past medical history significant for orthostatic hypotension, admitted with a near syncope secondary to orthostatic hypotension. The patient is on midodrine and was started on Florinef. History of ulcerative colitis; history of prostate cancer, status post laser surgery. Echo on 03/06/2018 shows good left ventricular function. There is no pulmonary insufficiency. A stress test dated 03/12/2018 is essentially negative. RECOMMENDATION: Continue IV fluid, panculture. Start antibiotic and increase Florinef to 0.2 mg p.o. b.i.d. Discontinue telemetry. Repeat in the morning and chart it. Please check orthostatic blood pressure and suggested to chart it. We will give 40 of potassium as well. We will repeat mag level in the morning as well. Thank you Dr. Woods for providing us the opportunity in taking care of the patient, Amy Weaver. Bryanna Choi MD
[2018-08-03] MEDS: Sodium Chloride 0.9% 1,000 ML IV SCH ×2 (02:59→20:35)
[2018-08-03] MEDS: Pantoprazole 20 mg EC Tab PO SCH (05:17)
--- NOTE | 2018-08-03 07:14 | CP.PCM.PN ---
Subjective - Date & Time of Evaluation Date of Evaluation: 08/03/18 Time of Evaluation: 06:25 - Subjective Subjective: Lying in bed, awake, alert, no distress Reason for consultation and follow up: Cardiac evaluation of syncope, positive for postural hypotension Seen and examined by me and Dr. Choi Objective - Vital Signs/Intake and Output Vital Signs (last 24 hours): Temp Pulse Resp BP Pulse Ox 98 F 68 18 105/66 99 08/02/18 14:00 08/02/18 14:00 08/02/18 14:00 08/02/18 14:00 08/02/18 14:00 - Medications Medications: Current Medications Fludrocortisone Acetate (Florinef) 0.2 mg PO BID [facility] Last Admin: 08/02/18 17:26 Dose: 0.2 mg Ceftriaxone Sodium (Rocephin 1 Gram Ivpb) 1 gm in 100 mls @ 100 mls/hr IVPB [facility]; Protocol Last Admin: 08/02/18 09:33 Dose: 100 mls/hr Sodium Chloride (Sodium Chloride 0.9%) 1,000 mls @ 50 mls/hr IV .Q20H [facility] Last Admin: 08/03/18 02:59 Dose: 50 mls/hr Midodrine (Proamatine) 10 mg PO BID [facility] Last Admin: 08/02/18 17:28 Dose: 10 mg Non-Formulary Medication (Mesalamine [Apriso]) 4 cap PO DAILY [facility] Last Admin: 08/02/18 09:32 Dose: 4 cap Pantoprazole Sodium (Protonix Ec Tab) 20 mg PO 0600 [facility] Last Admin: 08/03/18 05:17 Dose: 20 mg - Labs Labs: 08/02/18 06:00 08/02/18 06:00 - Constitutional Appears: Non-toxic, No Acute Distress - Head Exam Head Exam: NORMAL INSPECTION, NORMOCEPHALIC - Eye Exam Eye Exam: Normal appearance Pupil Exam: NORMAL ACCOMODATION - ENT Exam ENT Exam: Mucous Membranes Moist, Normal Exam - Respiratory Exam Respiratory Exam: Decreased Breath Sounds, NORMAL BREATHING PATTERN - Cardiovascular Exam Cardiovascular Exam: +S1, +S2 - GI/Abdominal Exam GI & Abdominal Exam: Soft, Normal Bowel Sounds - Extremities Exam Extremities Exam: Full ROM, Normal Capillary Refill - Neurological Exam Neurological Exam: Alert, Awake, Oriented x3 - Psychiatric Exam Psychiatric exam: Normal Affect, Normal Mood - Skin Skin Exam: Dry, Normal Color, Warm Assessment and Plan - Assessment and Plan (Free Text) Assessment: A 63 year old male who came in to the ER due to syncopal episode. He has history of positive postural hypotension, on Midorine. History of ulcerative colitis, prostate cancer, post laser surgery a year ago, bilateral eye surgery, former smoker. Echo done on 03/06/2018 showed good LV function, trace TR and no pulmonary hypertension.03/12/18 stress test normal. Orthostatic hypotension.Started NSS for IV hydration. Plan: No distress, Latest Orthostatic vital signs Lying BP 129/83 Sitting BP 82/62 Standing BP 80/58 Continue NSS at 50 cc/hr Denies dizziness or chest pain Heart rate stable Continue Midorine On Florinef 0.2 mg BID, Midorine 10 mg BID Continue Rocephin Continue current treatment Continue current medications Will follow up Plan and treatment discussed with Dr. Choi
[2018-08-03 07:37] LABS: BASO # 0.01 K/mm3 (0.0-2.0); BASO % 0.3 % (0.0-3.0); GRAN # 2.94 (1.4-6.5); GRAN % 74.2 % (50.0-68.0); HEMOGLOBIN 9.2 g/dL (14.0-18.0); LYMPH # 0.7 (1.2-3.4); LYMPH % 17.4 % (22.0-35.0); MEAN CELL VOLUME 85.4 fl (80.0-105.0); MEAN CORPUSCULAR HGB CONC 32.9 g/dl (31.0-37.0); MONO # 0.3 (0.1-0.6); MONO % 7.1 % (1.0-6.0); RBC 3.28 10^6/uL (3.5-6.1); RED CELL DISTRIBUTION WIDTH 13.4 % (11.5-14.5)
[2018-08-03 07:49] LABS: ALB/GLOB RATIO 0.9 (1.1-1.8); ALBUMIN 2.7 g/dL (3.0-4.8); ALT/SGPT 29 U/L (7-56); AST/SGOT 21 U/L (17-59); BLOOD UREA NITROGEN 7 mg/dL (7-21); CALCIUM 7.8 mg/dL (8.4-10.5); GFR NON-AFRICAN AMERICAN > 60
[2018-08-03] MEDS ORDERED: Potassium Chloride 20 mEq ER Tab PO STA ×2 (08:43→11:34)
[2018-08-03] MEDS: cefTRIAXone 1 gm 1 GM/100 ML BAG IVPB SCH (11:38)
[2018-08-03] MEDS ORDERED: MESALAMINE 0.375 GM PO SCH (12:22)
--- NOTE | 2018-08-03 12:55 | CP.PCM.DIS ---
Provider - Provider Date of Admission: 07/30/18 13:20 Attending physician: Armando Mcpherson MD Primary care physician: Davi Houser MD Consults: 07/29/18 14:57 Physician Consult Routine Comment: Consulting Provider: Nina Mcclelland Consulting Physician: Nina Mcclelland Reason for Consult: r/o seizures 07/29/18 15:06 Consult [Physician Consult] Routine Comment: Consulting Provider: Bryanna Osuna Consulting Physician: Bryanna Osuna Reason for Consult: hypotension, dizziness 07/30/18 22:37 [employer] [Case Management Referral] Routine Comment: Physician Instructions: Reason For Exam: BRYNN recommendations Reason for Referral: Discharge Planning Hospital Course - Lab Results Lab Results: Micro Results 07/31/18 17:52 Urine Urine Culture - Final Escherichia Coli Most Recent Lab Values WBC 4.0 10^3/uL (4.5-11.0) L D 08/03/18 07:10 RBC 3.28 10^6/uL (3.5-6.1) L 08/03/18 07:10 Hgb 9.2 g/dL (14.0-18.0) L 08/03/18 07:10 Hct 28.0 % (42.0-52.0) L 08/03/18 07:10 MCV 85.4 fl (80.0-105.0) 08/03/18 07:10 MCH 28.0 pg (25.0-35.0) 08/03/18 07:10 MCHC 32.9 g/dl (31.0-37.0) 08/03/18 07:10 RDW 13.4 % (11.5-14.5) 08/03/18 07:10 Plt Count 190 10^3/uL (120.0-450.0) 08/03/18 07:10 MPV 9.0 fl (7.0-11.0) 08/03/18 07:10 Gran % 74.2 % (50.0-68.0) H 08/03/18 07:10 Lymph % (Auto) 17.4 % (22.0-35.0) L 08/03/18 07:10 Pender % (Auto) 7.1 % (1.0-6.0) H 08/03/18 07:10 Eos % (Auto) 1.0 % (1.5-5.0) L 08/03/18 07:10 Baso % (Auto) 0.3 % (0.0-3.0) 08/03/18 07:10 Gran # 2.94 (1.4-6.5) 08/03/18 07:10 Lymph # (Auto) 0.7 (1.2-3.4) L 08/03/18 07:10 Pender # (Auto) 0.3 (0.1-0.6) 08/03/18 07:10 Eos # (Auto) 0.0 (0.0-0.7) 08/03/18 07:10 Baso # (Auto) 0.01 K/mm3 (0.0-2.0) 08/03/18 07:10 Sodium 139 mmol/L (132-148) 08/03/18 07:10 Potassium 3.4 mmol/L (3.6-5.0) L 08/03/18 07:10 Chloride 103 mmol/L (98-107) 08/03/18 07:10 Carbon Dioxide 32 mmol/L (21-33) 08/03/18 07:10 Anion Gap 8 (10-20) L 08/03/18 07:10 BUN 7 mg/dL (7-21) 08/03/18 07:10 Creatinine 0.6 mg/dl (0.8-1.5) L 08/03/18 07:10 Est GFR ( Amer) > 60 08/03/18 07:10 Est GFR (Non-Af Amer) > 60 08/03/18 07:10 Random Glucose 86 mg/dL (70-110) 08/03/18 07:10 Hemoglobin A1c 4.9 % (4.2-6.5) 07/31/18 08:15 Calcium 7.8 mg/dL (8.4-10.5) L 08/03/18 07:10 Phosphorus 3.1 mg/dL (2.5-4.5) 08/03/18 07:10 Magnesium 2.0 mg/dL (1.7-2.2) 08/03/18 07:10 Total Bilirubin 0.5 mg/dL (0.2-1.3) 08/03/18 07:10 AST 21 U/L (17-59) 08/03/18 07:10 ALT 29 U/L (7-56) 08/03/18 07:10 Alkaline Phosphatase 61 U/L (38-126) 08/03/18 07:10 Troponin I 0.01 ng/mL 07/29/18 12:35 NT-Pro-B Natriuret Pep 1410 pg/mL (0-450) H 07/29/18 12:35 Total Protein 5.6 g/dL (5.8-8.3) L 08/03/18 07:10 Albumin 2.7 g/dL (3.0-4.8) L 08/03/18 07:10 Globulin 3.0 gm/dL 08/03/18 07:10 Albumin/Globulin Ratio 0.9 (1.1-1.8) L 08/03/18 07:10 Triglycerides 80 mg/dL (35-160) 07/31/18 08:15 Cholesterol 106 mg/dL (130-200) L 07/31/18 08:15 LDL Cholesterol Direct 68 mg/dL (0-129) 07/31/18 08:15 HDL Cholesterol 28 mg/dL (29-60) L 07/31/18 08:15 TSH 3rd Generation 1.67 mIU/mL (0.46-4.68) 08/03/18 07:10 Urine Color Yellow (YELLOW) 07/31/18 17:52 Urine Appearance Turbid (CLEAR) 07/31/18 17:52 Urine pH 6.0 (4.7-8.0) 07/31/18 17:52 Ur Specific [place] 1.025 (1.005-1.035) 07/31/18 17:52 Urine Protein 30 mg/dL (<30 mg/dL) H 07/31/18 17:52 Urine Glucose (UA) Negative mg/dL (NEGATIVE) 07/31/18 17:52 Urine Ketones Negative mg/dL (NEGATIVE) 07/31/18 17:52 Urine Blood Trace-intact (NEGATIVE) H 07/31/18 17:52 Urine Nitrate Negative (NEGATIVE) 07/31/18 17:52 Urine Bilirubin Negative (NEGATIVE) 07/31/18 17:52 Urine Urobilinogen 0.2 E.U./dL (<1 E.U./dL) 07/31/18 17:52 Ur Leukocyte Esterase Large [place]/uL (NEGATIVE) H 07/31/18 17:52 Urine RBC 2 - 5 /hpf (0-2) 07/31/18 17:52 Urine WBC Tntc /hpf (0-6) 07/31/18 17:52 Ur Epithelial Cells 4 - 5 /hpf (0-5) 07/31/18 17:52 Urine Bacteria Many (NEG) 07/31/18 17:52 Discharge Exam - Head Exam Head Exam: NORMAL INSPECTION, NORMOCEPHALIC Discharge Plan - Follow Up Plan Condition: GUARDED Disposition: HOME/ ROUTINE Referrals: Davi Houser MD [Primary Care Provider] -
[2018-08-03] MEDS: Amoxicillin-Clav 500-125 mg Tab PO SCH ×2 (16:13→22:05)
--- NOTE | 2018-08-03 16:17 | CP.PCM.PN ---
<Marli Campbell - Last Filed: 08/03/18 16:11> Subjective - Date & Time of Evaluation Date of Evaluation: 08/03/18 Time of Evaluation: 08:55 - Subjective Subjective: PGY1 Medicine Progress Note for Dr. Mcpherson Patient was seen and evaluated at bedside this morning. No acute events overnight. Patient without complaints. Patient has placement available for subacute rehab, which was PT recommendation, however Patient stated later in the evening that he does not want to go to subacute rehab at this time. 12 Point ROS otherwise unremarkable. Objective - Vital Signs/Intake and Output Vital Signs (last 24 hours): Temp Pulse Resp BP Pulse Ox 98.1 F 76 20 121/82 98 08/03/18 06:00 08/03/18 06:00 08/03/18 06:00 08/03/18 06:00 08/03/18 06:00 - Medications Medications: Current Medications Amoxicillin/Clavulanate Potassium (Augmentin 500 Mg-125 Mg Tab) 1 tab PO Q8 [facility]; Protocol Stop: 08/08/18 15:16 Fludrocortisone Acetate (Florinef) 0.2 mg PO TID [facility] Last Admin: 08/03/18 14:55 Dose: 0.2 mg Sodium Chloride (Sodium Chloride 0.9%) 1,000 mls @ 50 mls/hr IV .Q20H [facility] Last Admin: 08/03/18 02:59 Dose: 50 mls/hr Midodrine (Proamatine) 10 mg PO BID [facility] Last Admin: 08/03/18 11:32 Dose: 10 mg Mesalamine [Apriso] 0.375gm Er (Home Med) 4 cap PO DAILY [facility] Pantoprazole Sodium (Protonix Ec Tab) 20 mg PO 0600 [facility] Last Admin: 08/03/18 05:17 Dose: 20 mg - Labs Labs: 08/03/18 07:10 08/03/18 07:10 - Additional Findings Additional findings: - Constitutional Appears: Well, Non-toxic, No Acute Distress - Head Exam Head Exam: ATRAUMATIC, NORMOCEPHALIC - Eye Exam Eye Exam: EOMI - ENT Exam ENT Exam: Mucous Membranes Moist - Respiratory Exam Respiratory Exam: NORMAL BREATHING PATTERN - Cardiovascular Exam Cardiovascular Exam: REGULAR RHYTHM - GI/Abdominal Exam GI & Abdominal Exam: Soft. absent: Distended, Guarding, Tenderness - Extremities Exam Extremities Exam: absent: Calf Tenderness, Pedal Edema - Neurological Exam Neurological Exam: Alert, Awake, Oriented x3 - Psychiatric Exam Psychiatric exam: Normal Affect, Normal Mood - Skin Skin Exam: Dry, Intact, Normal Color, Warm Assessment and Plan - Assessment and Plan (Free Text) Assessment: Assessment: 63 year old male with PMH of Anemia, UC, and orthostatic hypotension, who was admitted for dizziness likely secondary to orthostatic hypotension. Plan: Dizziness secondary to Orthostatic Hypotension, improved - MRI Brain unremarkable for acute pathology - CT Head without any acute IC abnormalities - EEG not indicated at this time, as per Neurology - Orthostatic VS noted - Gentle IVF with Normal Saline at 50mls/hr, as per cardiology - Florinef 0.2mg PO BID - Midodrine 10mg PO BID - Continue seizure, fall and aspiration precautions - PT recommending BRYNN placement upon discharge, however Patient refusing - Neurology, Cardiology, Physical Therapy, and [employer] Clerk consulted, all recommendations appreciated Asymptomatic UTI (Urinalysis consistent with UTI) - See urinalysis results - Augmentin 1 tab PO Q8 x5 days - Urine cultures showing G- Rods Normocytic Anemia - H/H stable - FOBT pending - Continue to monitor with daily CBC's History of UC - Continue home Mesalamine PPx, - GI: Protonix - DVT: SCD's Diet: Heart Healthy Code Status: Full Code Patient seen and case discussed with Dr. Ky Campbell PGY1 <Armando Mcpherson - Last Filed: 08/04/18 15:54> Objective - Vital Signs/Intake and Output Vital Signs (last 24 hours): Temp Pulse Resp BP Pulse Ox 98.6 F 64 18 113/75 100 08/04/18 14:00 08/04/18 14:00 08/04/18 14:00 08/04/18 06:00 08/04/18 14:00 Intake and Output: 08/04/18 08/04/18 06:59 18:59 Intake Total 240 Balance 240 - Medications Medications: Current Medications Amoxicillin/Clavulanate Potassium (Augmentin 500 Mg-125 Mg Tab) 1 tab PO Q8 [facility]; Protocol Stop: 08/08/18 15:16 Last Admin: 08/04/18 09:37 Dose: 1 tab Fludrocortisone Acetate (Florinef) 0.2 mg PO TID [facility] Last Admin: 08/04/18 09:37 Dose: 0.2 mg Sodium Chloride (Sodium Chloride 0.9%) 1,000 mls @ 100 mls/hr IV .Q10H [facility] Last Admin: 08/04/18 05:40 Dose: 100 mls/hr Midodrine (Proamatine) 10 mg PO BID [facility] Last Admin: 08/04/18 09:38 Dose: 10 mg Mesalamine [Apriso] 0.375gm Er (Home Med) 4 cap PO DAILY [facility] Pantoprazole Sodium (Protonix Ec Tab) 20 mg PO 0600 [facility] Last Admin: 08/04/18 09:37 Dose: 20 mg - Labs Labs: 08/04/18 07:40 08/04/18 07:40 Attending/Attestation - Attestation I have personally seen and examined this patient.: Yes I have fully participated in the care of the patient.: Yes I have reviewed all pertinent clinical information, including history, physical exam and plan: Yes Notes (Text): 08/04/18 15:54 Attending note; Patient seen and examined with resident. Patient is alert and awake. Denies any abdominal pain. Denies any hematemesis, Melena. tolerating diet well. Patient is a 63-year-old male with past medical history significant for ulcerative colitis, prostate cancer, and orthostatic hypotension that presented to the emergency room for low blood pressure and dizziness. 1. Dizziness. secondary to orthostatic hypotension. Neurology recommendations appreciated. Brain MRI shows no acute intracranial findings. Head CT showed no acute intracranial findings. Cardiology recommendations appreciated. Patient to continue midodrine. Florinef dosing increased today. on IV fluids. Patient seen by physical therapy who recommends subacute rehab. Patient is refusing rehabilitation. TCU evaluation requested. 2. UTI. Urinalysis appears to be positive for UTI. on Rocephin. Pending urine culture. 3. Gait instability. Continue physical therapy. Continue fall precautions. Pending subacute rehabilitation placement. 4. Anemia. Chronic. Stool for occult blood is negative. No acute signs of bleeding. 4. Ulcerative colitis. Not in acute exacerbation. Continue mesalamine. 5. GI/DVT prophylaxis. Protonix/SCDs. 6. Patient is a full code The diagnosis and follow-up plan discussed with patient in detail. Patient will follow up with PMD .
--- NOTE | 2018-08-03 17:15 | PN ---
DATE: 08/03/2018 REASON FOR CONSULTATION: Orthostatic hypotension, postural hypotension. SUBJECTIVE: The patient denies any chest pain, shortness of breath, or any palpitation. Getting IV fluids and on Florinef. PHYSICAL EXAMINATION: VITAL SIGNS: Repeat orthostatic was done and found to be 122/74 lying, sitting 81/53, and standing . IMPRESSION: Significant orthostatic hypotension, recurrent syncope. Recent echocardiogram on 03/06/2018 showed preserved left ventricular function and no pulmonary hypertension. RECOMMENDATION: We will increase Florinef to 0.2 by mouth three times daily, monitor renal function and monitor blood pressure. History of prostate cancer and laser surgery in the past. We will increase Florinef to p.o. t.i.d. and monitor the blood pressure. Bryanna Choi MD
[2018-08-04] MEDS: Sodium Chloride 0.9% 1,000 ML IV SCH (05:40)
--- NOTE | 2018-08-04 07:07 | CP.PCM.PN ---
Subjective - Date & Time of Evaluation Date of Evaluation: 08/04/18 Time of Evaluation: 06:45 - Subjective Subjective: awake, alert, no distress Reason for consultation and follow up: Cardiac evaluation of syncope, positive for postural hypotension Seen and examined by me and Dr. Choi Objective - Vital Signs/Intake and Output Vital Signs (last 24 hours): Temp Pulse Resp BP Pulse Ox 98.6 F 89 20 115/71 97 08/03/18 21:54 08/03/18 21:54 08/03/18 21:54 08/03/18 21:54 08/03/18 21:54 Intake and Output: 08/04/18 08/04/18 06:59 18:59 Intake Total 240 Balance 240 - Medications Medications: Current Medications Amoxicillin/Clavulanate Potassium (Augmentin 500 Mg-125 Mg Tab) 1 tab PO Q8 [facility]; Protocol Stop: 08/08/18 15:16 Last Admin: 08/03/18 22:05 Dose: 1 tab Fludrocortisone Acetate (Florinef) 0.2 mg PO TID [facility] Last Admin: 08/03/18 18:02 Dose: 0.2 mg Sodium Chloride (Sodium Chloride 0.9%) 1,000 mls @ 100 mls/hr IV .Q10H [facility] Last Admin: 08/04/18 05:40 Dose: 100 mls/hr Midodrine (Proamatine) 10 mg PO BID [facility] Last Admin: 08/03/18 18:01 Dose: 10 mg Mesalamine [Apriso] 0.375gm Er (Home Med) 4 cap PO DAILY [facility] Pantoprazole Sodium (Protonix Ec Tab) 20 mg PO 0600 [facility] Last Admin: 08/03/18 05:17 Dose: 20 mg - Labs Labs: 08/03/18 07:10 08/03/18 07:10 Assessment and Plan - Assessment and Plan (Free Text) Assessment: A 63 year old male who came in to the ER due to syncopal episode. He has history of positive postural hypotension, on Midorine. History of ulcerative colitis, prostate cancer, post laser surgery a year ago, bilateral eye surgery, former smoker. Echo done on 03/06/2018 showed good LV function, trace TR and no pulmonary hypertension.03/12/18 stress test normal. Orthostatic hypotension.Started NSS for IV hydration. Increased Florinef to TID. Plan: No distress,Denies dizziness or chest pain Latest Orthostatic vital signs Lying BP 123/82 Sitting BP 105/62 Standing BP 73/41 Still marked hypotension standing IV NSS at increased to 100 cc/hr Florinef increased to TID Heart rate stable On Florinef 0.2 mg TID, Midorine 10 mg BID Continue Rocephin Continue current treatment Continue current medications Will follow up Plan and treatment discussed with Dr. Choi
[2018-08-04 07:58] VITALS: BP 113/75; RESP 18; O2SAT 100
[2018-08-04 08:00] LABS: BASO # 0.01 K/mm3 (0.0-2.0); BASO % 0.2 % (0.0-3.0); GRAN # 2.9 (1.4-6.5); GRAN % 72.2 % (50.0-68.0); HEMOGLOBIN 9.1 g/dL (14.0-18.0); LYMPH # 0.8 (1.2-3.4); LYMPH % 20.4 % (22.0-35.0); MEAN CELL VOLUME 85.6 fl (80.0-105.0); MEAN CORPUSCULAR HEMOGLOBIN 28.4 pg (25.0-35.0); MEAN CORPUSCULAR HGB CONC 33.2 g/dl (31.0-37.0); MEAN PLATELET VOLUME 8.8 fl (7.0-11.0); MONO # 0.3 (0.1-0.6); MONO % 6.2 % (1.0-6.0); RBC 3.2 10^6/uL (3.5-6.1); RED CELL DISTRIBUTION WIDTH 13.6 % (11.5-14.5)
[2018-08-04 08:18] LABS: ALB/GLOB RATIO 0.8 (1.1-1.8); ALBUMIN 2.5 g/dL (3.0-4.8); ALT/SGPT 30 U/L (7-56); AST/SGOT 21 U/L (17-59); BLOOD UREA NITROGEN 3 mg/dL (7-21); CALCIUM 7.4 mg/dL (8.4-10.5); GFR NON-AFRICAN AMERICAN > 60
[2018-08-04] MEDS ORDERED: Potassium Chloride 20 mEq ER Tab PO STA (08:59)
[2018-08-04] MEDS: Amoxicillin-Clav 500-125 mg Tab PO SCH ×2 (09:37→17:33)
[2018-08-04] MEDS: Pantoprazole 20 mg EC Tab PO SCH (09:37)
--- NOTE | 2018-08-04 10:34 | CP.PCM.DIS ---
<Marli Campbell - Last Filed: 08/04/18 10:24> Provider - Provider Date of Admission: 07/30/18 13:20 Attending physician: Armando Mcpherson MD Primary care physician: Davi Houser MD Consults: 07/29/18 14:57 Physician Consult Routine Comment: Consulting Provider: Nina Mcclelland Consulting Physician: Nina Mcclelland Reason for Consult: r/o seizures 07/29/18 15:06 Consult [Physician Consult] Routine Comment: Consulting Provider: Bryanna Osuna Consulting Physician: Bryanna Osuna Reason for Consult: hypotension, dizziness 07/30/18 22:37 [employer] [Case Management Referral] Routine Comment: Physician Instructions: Reason For Exam: PA recommendations Reason for Referral: Discharge Planning 08/03/18 15:11 TCU [Evaluation for TRCU] Routine Comment: Physician Instructions: Reason For Exam: refusing pa Time Spent in preparation of Discharge (in minutes): 45 Diagnosis - Discharge Diagnosis (1) Near syncope Status: Acute Priority: Medium Hospital Course - Lab Results Lab Results: Micro Results 07/31/18 17:52 Urine Urine Culture - Final Escherichia Coli Most Recent Lab Values WBC 4.0 10^3/uL (4.5-11.0) L 08/04/18 07:40 RBC 3.20 10^6/uL (3.5-6.1) L 08/04/18 07:40 Hgb 9.1 g/dL (14.0-18.0) L 08/04/18 07:40 Hct 27.4 % (42.0-52.0) L 08/04/18 07:40 MCV 85.6 fl (80.0-105.0) 08/04/18 07:40 MCH 28.4 pg (25.0-35.0) 08/04/18 07:40 MCHC 33.2 g/dl (31.0-37.0) 08/04/18 07:40 RDW 13.6 % (11.5-14.5) 08/04/18 07:40 Plt Count 202 10^3/uL (120.0-450.0) 08/04/18 07:40 MPV 8.8 fl (7.0-11.0) 08/04/18 07:40 Gran % 72.2 % (50.0-68.0) H 08/04/18 07:40 Lymph % (Auto) 20.4 % (22.0-35.0) L 08/04/18 07:40 [place] % (Auto) 6.2 % (1.0-6.0) H 08/04/18 07:40 Eos % (Auto) 1.0 % (1.5-5.0) L 08/04/18 07:40 Baso % (Auto) 0.2 % (0.0-3.0) 08/04/18 07:40 Gran # 2.90 (1.4-6.5) 08/04/18 07:40 Lymph # (Auto) 0.8 (1.2-3.4) L 08/04/18 07:40 [place] # (Auto) 0.3 (0.1-0.6) 08/04/18 07:40 Eos # (Auto) 0.0 (0.0-0.7) 08/04/18 07:40 Baso # (Auto) 0.01 K/mm3 (0.0-2.0) 08/04/18 07:40 Sodium 141 mmol/L (132-148) 08/04/18 07:40 Potassium 3.1 mmol/L (3.6-5.0) L 08/04/18 07:40 Chloride 105 mmol/L (98-107) 08/04/18 07:40 Carbon Dioxide 34 mmol/L (21-33) H 08/04/18 07:40 Anion Gap 5 (10-20) L 08/04/18 07:40 BUN 3 mg/dL (7-21) L 08/04/18 07:40 Creatinine 0.6 mg/dl (0.8-1.5) L 08/04/18 07:40 Est GFR ( Amer) > 60 08/04/18 07:40 Est GFR (Non-Af Amer) > 60 08/04/18 07:40 Random Glucose 101 mg/dL (70-110) 08/04/18 07:40 Hemoglobin A1c 4.9 % (4.2-6.5) 07/31/18 08:15 Calcium 7.4 mg/dL (8.4-10.5) L 08/04/18 07:40 Phosphorus 3.1 mg/dL (2.5-4.5) 08/03/18 07:10 Magnesium 2.0 mg/dL (1.7-2.2) 08/03/18 07:10 Total Bilirubin 0.3 mg/dL (0.2-1.3) 08/04/18 07:40 AST 21 U/L (17-59) 08/04/18 07:40 ALT 30 U/L (7-56) 08/04/18 07:40 Alkaline Phosphatase 58 U/L (38-126) 08/04/18 07:40 Troponin I 0.01 ng/mL 07/29/18 12:35 NT-Pro-B Natriuret Pep 1410 pg/mL (0-450) H 07/29/18 12:35 Total Protein 5.5 g/dL (5.8-8.3) L 08/04/18 07:40 Albumin 2.5 g/dL (3.0-4.8) L 08/04/18 07:40 Globulin 3.0 gm/dL 08/04/18 07:40 Albumin/Globulin Ratio 0.8 (1.1-1.8) L 08/04/18 07:40 Triglycerides 80 mg/dL (35-160) 07/31/18 08:15 Cholesterol 106 mg/dL (130-200) L 07/31/18 08:15 LDL Cholesterol Direct 68 mg/dL (0-129) 07/31/18 08:15 HDL Cholesterol 28 mg/dL (29-60) L 07/31/18 08:15 TSH 3rd Generation 1.67 mIU/mL (0.46-4.68) 08/03/18 07:10 Urine Color Yellow (YELLOW) 07/31/18 17:52 Urine Appearance Turbid (CLEAR) 07/31/18 17:52 Urine pH 6.0 (4.7-8.0) 07/31/18 17:52 Ur Specific [place] 1.025 (1.005-1.035) 07/31/18 17:52 Urine Protein 30 mg/dL (<30 mg/dL) H 07/31/18 17:52 Urine Glucose (UA) Negative mg/dL (NEGATIVE) 07/31/18 17:52 Urine Ketones Negative mg/dL (NEGATIVE) 07/31/18 17:52 Urine Blood Trace-intact (NEGATIVE) H 07/31/18 17:52 Urine Nitrate Negative (NEGATIVE) 07/31/18 17:52 Urine Bilirubin Negative (NEGATIVE) 07/31/18 17:52 Urine Urobilinogen 0.2 E.U./dL (<1 E.U./dL) 07/31/18 17:52 Ur Leukocyte Esterase Large [place]/uL (NEGATIVE) H 07/31/18 17:52 Urine RBC 2 - 5 /hpf (0-2) 07/31/18 17:52 Urine WBC Tntc /hpf (0-6) 07/31/18 17:52 Ur Epithelial Cells 4 - 5 /hpf (0-5) 07/31/18 17:52 Urine Bacteria Many (NEG) 07/31/18 17:52 Stool Occult Blood Negative (NEGATIVE) 08/04/18 09:30 - Hospital Course Hospital Course: PGY1 Discharge Summary and Hospital Course for Dr. Mcpherson This is a 63 year old male with past medical history of Ulcerative colitis, prostate ca (s/p laser tx), orthostatic hypotension who came to ED for low blood pressure and dizziness. Patient states he did not fall, hit his head, have tongue biting, tonic-clonic movements or incontinence. His took his BP at home and reported it was in the 70s. Please see H&P document for details. Patient was subsequently admitted for near syncope work-up. CT of head without contrast was negative for acute intracranial abnormalities. Patient was found to have positive orthostatics. Patient was treated with mesalamine, midodrine, and florinef. Cardiology (Dr. Osuna) was consulted. Neurology (Dr. Mcclelland) was consulted. MRI of brain was obtained and revealed no acute intracranial abnormalities. Of note, urinalysis was obtained and urine culture revealed UTI. Patient was asymptomatic throughout hospital stay. Patient was treated with antibiotics. Patient was evaluated by Physical Therapy, who recommended Subacute Rehab (PA) following discharge, however Patient refused PA. Patient stated he preferred to go home. Please see progress notes and Patient's chart for more detailed summary. On day of discharge the Patient had no complaints. The Patient was hemodynamically stable and medically optimized for discharge. Consultants on case agreed. Patient was provided with detailed discharge instructions that were provided to the Patient both in written form and verbally in language at the level of the Patient's understanding. Patient both understands and agrees to all discharge instructions. Please see chart for details. Discharge Medications: - Mesalamine 0.375g 4 cap PO Daily - Midodrine 5mg PO BID - Augmentin 1 tab PO Q8 #12 - Florinef 0.2mg PO TID Patient seen and case discussed in detail with Dr. yK Campbell PGY1 Discharge Exam - Additional Findings Additional findings: - Constitutional Appears: Well, Non-toxic, No Acute Distress - Head Exam Head Exam: ATRAUMATIC, NORMOCEPHALIC - Eye Exam Eye Exam: EOMI - ENT Exam ENT Exam: Mucous Membranes Moist - Respiratory Exam Respiratory Exam: NORMAL BREATHING PATTERN - Cardiovascular Exam Cardiovascular Exam: REGULAR RHYTHM - GI/Abdominal Exam GI & Abdominal Exam: Soft. absent: Distended, Guarding, Tenderness - Extremities Exam Extremities Exam: absent: Calf Tenderness, Pedal Edema - Neurological Exam Neurological Exam: Alert, Awake, Oriented x3 - Psychiatric Exam Psychiatric exam: Normal Affect, Normal Mood - Skin Skin Exam: Dry, Intact, Normal Color, Warm Discharge Plan - Discharge Medications Prescriptions: Amoxicillin/Clavulanate [Augmentin 500 MG-125 MG Tab] 1 tab PO Q8 #12 tab Fludrocortisone [Florinef] 0.2 mg PO TID #90 tab Midodrine [Proamatine] 10 mg PO BID #60 tab - Follow Up Plan Condition: GUARDED Disposition: HOME/ ROUTINE Instructions: Syncope (Fainting), Hypotension (DC), Hypotension (GEN) Additional Instructions: Please provide the Patient with the following Discharge Instructions: Please follow up with Dr. Houser (PMD) within 3-5 days after being discharged from the hospital. Please take the following medications: 1. Mesalamine 0.375g, take 4 caps by mouth daily 2. Midodrine 5mg Yfn 1 tab by mouth twice daily 3. Augmentin (antibiotic) take 1 tab by mouth 3 times daily for 4 days 4. Florinef 0.1mg take 2 tabs by mouth 3 times daily You refused subacute rehab, which was recommended for you by Physical Therapy following discharge. You received a hand-written prescription for Physical Therapy. Please take this prescription with you to your next doctor's appointment. If your symptoms return, please go to your nearest ED immediately. Referrals: Davi Houser MD [Primary Care Provider] - <Armando Mcpherson - Last Filed: 08/05/18 16:23> Provider - Provider Date of Admission: 07/30/18 13:20 Attending physician: Armando Mcpherson MD Primary care physician: Davi Houser MD Consults: 07/29/18 14:57 Physician Consult Routine Comment: Consulting Provider: Nina Mcclelland Consulting Physician: Nina Mcclelland Reason for Consult: r/o seizures 07/29/18 15:06 Consult [Physician Consult] Routine Comment: Consulting Provider: Bryanna Osuna Consulting Physician: Bryanna Osuna Reason for Consult: hypotension, dizziness 07/30/18 22:37 [employer] [Case Management Referral] Routine Comment: Physician Instructions: Reason For Exam: PA recommendations Reason for Referral: Discharge Planning 08/03/18 15:11 TCU [Evaluation for TRCU] Routine Comment: Physician Instructions: Reason For Exam: refusing pa Hospital Course - Lab Results Lab Results: Micro Results 07/31/18 17:52 Urine Urine Culture - Final Escherichia Coli Most Recent Lab Values WBC 4.0 10^3/uL (4.5-11.0) L 08/04/18 07:40 RBC 3.20 10^6/uL (3.5-6.1) L 08/04/18 07:40 Hgb 9.1 g/dL (14.0-18.0) L 08/04/18 07:40 Hct 27.4 % (42.0-52.0) L 08/04/18 07:40 MCV 85.6 fl (80.0-105.0) 08/04/18 07:40 MCH 28.4 pg (25.0-35.0) 08/04/18 07:40 MCHC 33.2 g/dl (31.0-37.0) 08/04/18 07:40 RDW 13.6 % (11.5-14.5) 08/04/18 07:40 Plt Count 202 10^3/uL (120.0-450.0) 08/04/18 07:40 MPV 8.8 fl (7.0-11.0) 08/04/18 07:40 Gran % 72.2 % (50.0-68.0) H 08/04/18 07:40 Lymph % (Auto) 20.4 % (22.0-35.0) L 08/04/18 07:40 [place] % (Auto) 6.2 % (1.0-6.0) H 08/04/18 07:40 Eos % (Auto) 1.0 % (1.5-5.0) L 08/04/18 07:40 Baso % (Auto) 0.2 % (0.0-3.0) 08/04/18 07:40 Gran # 2.90 (1.4-6.5) 08/04/18 07:40 Lymph # (Auto) 0.8 (1.2-3.4) L 08/04/18 07:40 [place] # (Auto) 0.3 (0.1-0.6) 08/04/18 07:40 Eos # (Auto) 0.0 (0.0-0.7) 08/04/18 07:40 Baso # (Auto) 0.01 K/mm3 (0.0-2.0) 08/04/18 07:40 Sodium 141 mmol/L (132-148) 08/04/18 07:40 Potassium 3.1 mmol/L (3.6-5.0) L 08/04/18 07:40 Chloride 105 mmol/L (98-107) 08/04/18 07:40 Carbon Dioxide 34 mmol/L (21-33) H 08/04/18 07:40 Anion Gap 5 (10-20) L 08/04/18 07:40 BUN 3 mg/dL (7-21) L 08/04/18 07:40 Creatinine 0.6 mg/dl (0.8-1.5) L 08/04/18 07:40 Est GFR ( Amer) > 60 08/04/18 07:40 Est GFR (Non-Af Amer) > 60 08/04/18 07:40 Random Glucose 101 mg/dL (70-110) 08/04/18 07:40 Hemoglobin A1c 4.9 % (4.2-6.5) 07/31/18 08:15 Calcium 7.4 mg/dL (8.4-10.5) L 08/04/18 07:40 Phosphorus 3.1 mg/dL (2.5-4.5) 08/03/18 07:10 Magnesium 2.0 mg/dL (1.7-2.2) 08/03/18 07:10 Total Bilirubin 0.3 mg/dL (0.2-1.3) 08/04/18 07:40 AST 21 U/L (17-59) 08/04/18 07:40 ALT 30 U/L (7-56) 08/04/18 07:40 Alkaline Phosphatase 58 U/L (38-126) 08/04/18 07:40 Troponin I 0.01 ng/mL 07/29/18 12:35 NT-Pro-B Natriuret Pep 1410 pg/mL (0-450) H 07/29/18 12:35 Total Protein 5.5 g/dL (5.8-8.3) L 08/04/18 07:40 Albumin 2.5 g/dL (3.0-4.8) L 08/04/18 07:40 Globulin 3.0 gm/dL 08/04/18 07:40 Albumin/Globulin Ratio 0.8 (1.1-1.8) L 08/04/18 07:40 Triglycerides 80 mg/dL (35-160) 07/31/18 08:15 Cholesterol 106 mg/dL (130-200) L 07/31/18 08:15 LDL Cholesterol Direct 68 mg/dL (0-129) 07/31/18 08:15 HDL Cholesterol 28 mg/dL (29-60) L 07/31/18 08:15 TSH 3rd Generation 1.67 mIU/mL (0.46-4.68) 08/03/18 07:10 Urine Color Yellow (YELLOW) 07/31/18 17:52 Urine Appearance Turbid (CLEAR) 07/31/18 17:52 Urine pH 6.0 (4.7-8.0) 07/31/18 17:52 Ur Specific [place] 1.025 (1.005-1.035) 07/31/18 17:52 Urine Protein 30 mg/dL (<30 mg/dL) H 07/31/18 17:52 Urine Glucose (UA) Negative mg/dL (NEGATIVE) 07/31/18 17:52 Urine Ketones Negative mg/dL (NEGATIVE) 07/31/18 17:52 Urine Blood Trace-intact (NEGATIVE) H 07/31/18 17:52 Urine Nitrate Negative (NEGATIVE) 07/31/18 17:52 Urine Bilirubin Negative (NEGATIVE) 07/31/18 17:52 Urine Urobilinogen 0.2 E.U./dL (<1 E.U./dL) 07/31/18 17:52 Ur Leukocyte Esterase Large [place]/uL (NEGATIVE) H 07/31/18 17:52 Urine RBC 2 - 5 /hpf (0-2) 07/31/18 17:52 Urine WBC Tntc /hpf (0-6) 07/31/18 17:52 Ur Epithelial Cells 4 - 5 /hpf (0-5) 07/31/18 17:52 Urine Bacteria Many (NEG) 07/31/18 17:52 Stool Occult Blood Negative (NEGATIVE) 08/04/18 09:30 Attending/Attestation - Attestation I have personally seen and examined this patient.: Yes I have fully participated in the care of the patient.: Yes I have reviewed all pertinent clinical information, including history, physical exam and plan: Yes Notes (Text): 08/05/18 16:20 Attending note; Patient seen and examined with resident. Patient is alert and awake. Denies any abdominal pain. Patient is a 63-year-old male with past medical history significant for ulcerative colitis, prostate cancer, and orthostatic hypotension that presented to the emergency room for low blood pressure and dizziness. 1. Dizziness. secondary to orthostatic hypotension. Neurology recommendations appreciated. medications increased. Continue Midodrine and florinef. Brain MRI shows no acute intracranial findings. Head CT showed no acute intracranial findings. Cardiology recommendations appreciated. Patient to continue midodrine. Florinef dosing increased today. on IV fluids. Patient seen by physical therapy who recommends subacute rehab. Patient is refusing rehabilitation. TCU evaluation requested. Not accepted to TCU. Family informed. Still refusing REhab. 2. UTI. Urinalysis appears to be positive for UTI. on Rocephin. urine culture is positive for Escherichia coli. Will complete antibiotics course with Augmentin. 3. Gait instability. Continue physical therapy. Continue fall precautions. Refused Rehab again today. 4. Anemia. Chronic. Stool for occult blood is negative. No acute signs of bleeding. 4. Ulcerative colitis. Not in acute exacerbation. Continue mesalamine. 5. GI/DVT prophylaxis. Protonix/SCDs. 6. Patient is a full code patient will be discharged home as per patient and patient's request. Follow-up with cardiology Dr. Osuna closely. Fall precautions. Patient will follow up with PMD .
[2018-08-04 14:45] VITALS: PULSE 64; TEMP 98.6
--- NOTE | 2018-08-05 08:16 | PN ---
DATE: 08/04/2018 LOCATION: Room 573, bed 1. The patient was admitted with syncope. The patient has known postural hypotension and continued to be in postural hypotension here and dizzy, so the patient was given IV saline fluid and the dose of Florinef was increased to 0.2 t.i.d. and midodrine 10 mg b.i.d. The patient's blood pressure this morning lying 122/82, sitting 106/68, standing 86/55. In the evening, the blood pressure lying 144/97, sitting 106/66, and standing 96/60 and the patient felt better. ASSESSMENT AND PLAN: The patient was advised to go to a rehab facility, but the patient refused. So, he will continue with the present therapy at home and will follow as an outpatient. Bryanna Osuna MD
== END 2018-08-04 18:44 | disposition home or self-care (01) | DRG 312 ==
LOC: ED 12:10 → ERH 13:39 → 2RNO 18:31 → OBSVTOIN 07-30 13:20 → 5RSO 08-02 11:39
PROVIDERS: ADMIT Hospitalist; ATTEND Internal Medicine
DX: I95.1 Orthostatic hypotension (principal); K51.90 Ulcerative colitis, unspecified, without complications; N39.0 Urinary tract infection, site not specified; B96.20 Unspecified Escherichia coli [E. coli] as the cause of diseases classified elsewhere; I10 Essential (primary) hypertension; D64.9 Anemia, unspecified; G62.9 Polyneuropathy, unspecified; R42 Dizziness and giddiness; Z85.46 Personal history of malignant neoplasm of prostate; Z87.891 Personal history of nicotine dependence; Z88.5 Allergy status to narcotic agent

== ENCOUNTER 2018-10-08 12:12 | Emergency (ER) | payer BC ==
[2018-10-08 12:17] VITALS: BMI 17.9
[2018-10-08 12:22] VITALS: TEMP 97.5
--- NOTE | 2018-10-08 13:05 | ED PDOC ---
Arrival/HPI - General Chief Complaint: Medical Clearance Time Seen by Provider: 10/08/18 12:15 Historian: Patient, Spouse - History of Present Illness Narrative History of Present Illness (Text): 10/08/18 12:59 A 63 year old male, whose past medical history includes ulcerative colitis, prostate ca (s/p laser tx), orthostatic hypotension, is brought into the emergency department by EMS for further evaluation of hypotension. Patient was at [facility] getting evaluated for handicap status when he became hypotensive. The patient reports that he has been feeling weak this week, describing it as "feeling off". The patient's reports that he has an appointment with his Urologist for further evaluation of intermittent discharge in urine. The patient denies any sick contacts, denies fevers, chills, headache, dizziness, chest pain, shortness of breath, dyspnea on exertion, cough, abdominal pain, nausea, vomiting, diarrhea, back pain, neck pain, urinary/bowel changes, or any other complaint. PMD: Dr. Houser Urologist: Dr. Murray Senior Systems Software Engineer: Dr. Osuna GI: Dr. Caruso Neurologist: Dr. Swartz Time/Duration: Other (Today) Symptom Onset: Sudden Symptom Course: Unchanged Activities at Onset: Rest, Light Context: Home Past Medical History - Provider Review Nursing Documentation Reviewed: Yes - Infectious Disease Hx of Infectious Diseases: None - Cardiac Hx Cardiac Disorders: Yes Hx Hypertension: Yes Other/Comment: orthostatic hypotension - Pulmonary Hx Respiratory Disorders: No - Neurological Hx Neurological Disorder: Yes (chronic upper extremity tremors) Hx Dizziness: Yes Other/Comment: peripheral neuropathy both feet beginning to travel to b/l lower legs pain numbness for about 5/6 yrs. episode of focal weakness gait changes dizziness/lightheaded, stares, slow motor and verbal response this past summer, one week ago and 3 episodes since yesterday - HEENT Hx HEENT Disorder: No - Renal Hx Renal Disorder: No - Endocrine/Metabolic Hx Endocrine Disorders: No - Hematological/Oncological Hx Blood Disorders: Yes Hx Cancer: (see below) Other/Comment: prostate bx 03/2010 found small "spot of ca, not aggresive" no treatment scheduled to f/u with dr murray next week 03/11/18, last bx done 05/2018 negative for ca - Integumentary Hx Dermatological Disorder: Yes Other/Comment: abrasion left nostril and left side face cheekbone, abrasion left shoulder, bunyon left foot, buttocks red blanchable skin, small 0.3cm round red small opening right buttock, indentation above butt crack 1cm long indentation not opened - Musculoskeletal/Rheumatological Hx Musculoskeletal Disorders: No - Gastrointestinal Hx Gastrointestinal Disorders: Yes Hx Diverticulitis: (pt denies) Other/Comment: hx blood in stools, loose stools, 11/08/15 egd with push en teroscopy/ bx with sigmoidoscopy/pre op dx was wt loss/diarrhea, pt wears depends as a precaution due to ulcerative colitis - Genitourinary/Gynecological Hx Genitourinary Disorders: Yes Hx Prostate Problems: Yes (enlarged) Other/Comment: hesitancy, "mucous in urine when I begin to pee", then clears - Psychiatric Hx Psychophysiologic Disorder: No Hx Substance Use: No - Surgical History Other/Comment: prostate bx 03/2010, latest prostate bx 03/2018 negative for cancer, laser procedure for enlarged prostate - Anesthesia Hx Anesthesia: Yes Hx Anesthesia Reactions: Yes (vomitting) Hx Malignant Hyperthermia: No - Suicidal Assessment Feels Threatened In Home Enviroment: No Family/Social History - Physician Review Nursing Documentation Reviewed: Yes Family/Social History: No Known Family HX Smoking Status: Former Smoker Hx Alcohol Use: No Hx Substance Use: No Allergies/Home Meds Allergies/Adverse Reactions: Allergies codeine Allergy (Intermediate, Verified 10/08/18 12:17) SWEATING,FEVERISH,VOMITING Home Medications: Home Meds Medication Instructions Recorded Confirmed Mesalamine [Apriso] 4 cap PO DAILY 03/05/18 07/29/18 Review of Systems - Physician Review All systems were reviewed & negative as marked: Yes - Review of Systems Constitutional: absent: Fevers Respiratory: absent: SOB, Cough Cardiovascular: absent: Chest Pain, LEYVA Gastrointestinal: absent: Abdominal Pain, Stool Changes, Diarrhea, Nausea, Vomiting Genitourinary Male: absent: Urinary Output Changes Musculoskeletal: absent: Back Pain, Neck Pain Neurological: absent: Headache, Dizziness Physical Exam Vital Signs Reviewed: Yes Vital Signs Temp Pulse Resp BP Pulse Ox 10/08/18 12:21 97.5 F L 90 18 99/63 L 97 Temperature: Hypothermic Blood Pressure: Hypotensive Pulse: Regular Respiratory Rate: Normal Appearance: Positive for: Well-Appearing, Non-Toxic, Comfortable Pain Distress: None Mental Status: Positive for: Alert and Oriented X 3 - Systems Exam Head: Present: Atraumatic, Normocephalic Pupils: Present: PERRL Extroacular Muscles: Present: EOMI Conjunctiva: Present: Normal Mouth: Present: Moist Mucous Membranes Neck: Present: Normal Range of Motion Respiratory/Chest: Present: Clear to Auscultation, Good Air Exchange. No: Respiratory Distress, Accessory Muscle Use Cardiovascular: Present: Regular Rate and Rhythm, Normal S1, S2. No: Murmurs Abdomen: No: Tenderness, Distention, Peritoneal Signs Back: Present: Normal Inspection Upper Extremity: Present: Normal Inspection. No: Cyanosis, Edema Lower Extremity: Present: Normal Inspection. No: Edema Neurological: Present: GCS=15, CN II-XII Intact, Speech Normal Skin: Present: Warm, Dry, Normal Color. No: Rashes Psychiatric: Present: Alert, Oriented x 3, Normal Insight, Normal Concentration Medical Decision Making ED Course and Treatment: 10/08/18 13:08 Impression: A 63 year old male presents to the emergency department for further evaluation of hypotension. Differential Diagnosis included but are not limited to: Plan: -- Chest X-ray -- Urinalysis -- Labs --IVF --Fluids -- Reassess and disposition Prior Visits: Notes and results from previous visits were reviewed. Progress Notes: 10/08/18 16:43 Labs reviewed with slight leukocytosis and no electrolyte abnormalities. Blood pressure rechecked and noted to be 150s/80s with patient desiring to go home. UA - Lab Interpretations Lab Results: 10/08/18 13:30 10/08/18 13:30 Lab Results 10/08/18 15:55: Influenza Typ A,B (EIA) Negative for flu a/b 10/08/18 13:30: Sodium 136, Potassium 4.1, Chloride 103, Carbon Dioxide 30, Anion Gap 8 L, BUN 12, Creatinine 0.8, Est GFR ( Amer) > 60, Est GFR (Non-Af Amer) > 60, Random Glucose 102, Calcium 8.6, Magnesium 1.9, Total Bilirubin 0.9, AST 17, ALT 10, Alkaline Phosphatase 66, Troponin I < 0.01, Total Protein 6.5, Albumin 3.2, Globulin 3.2, Albumin/Globulin Ratio 1.0 L 10/08/18 13:30: WBC 11.9 H D, RBC 4.06, Hgb 11.6 L D, Hct 34.6 L, MCV 85.2, MCH 28.6, MCHC 33.5, RDW 13.7, Plt Count 205, MPV 8.7, Neut % (Auto) 84.6 H, Lymph % (Auto) 10.3 L, [place] % (Auto) 4.7, Eos % (Auto) 0.3 L, Baso % (Auto) 0.1, Lymph # (Auto) 1.2, [place] # (Auto) 0.6, Eos # (Auto) 0.0, Baso # (Auto) 0.01, Absolute Neuts (auto) 10.10 H I have reviewed the lab results: Yes - RAD Interpretation Narrative RAD Interpretations (Text): Chest X-ray Dictator : Noemi Toscano MD Report Date : 10/08/2018 13:42:10 IMPRESSION: No active disease. - Medication Orders Current Medication Orders: 10/08/18 16:53 Discontinued Medications Sodium Chloride (Sodium Chloride 0.9%) 1,000 mls @ 999 mls/hr IV .Q1H1M STA Stop: 10/08/18 15:52 Last Admin: 10/08/18 15:34 Dose: 999 mls/hr eMAR Start Stop Document 10/08/18 15:34 OCS (Rec: 10/08/18 15:36 OCS [id number]) Intravenous Solution Start Date 10/08/18 Start Time 15:36 End Date 10/08/18 End time 16:37 Total Infusion Time 61 - Scribe Statement The provider has reviewed the documentation as recorded by the Hunteribe Ina Tyler Provider Scribe Attestation: All medical record entries made by the Scribe were at my direction and personally dictated by me. I have reviewed the chart and agree that the record accurately reflects my personal performance of the history, physical exam, medical decision making, and the department course for this patient. I have also personally directed, reviewed, and agree with the discharge instructions and disposition. Disposition/Present on Arrival - Present on Arrival Any Indicators Present on Arrival: No History of DVT/PE: No History of Uncontrolled Diabetes: No Urinary Catheter: No History of Decub. Ulcer: No History Surgical Site Infection Following: None - Disposition Have Diagnosis and Disposition been Completed?: Yes Diagnosis: Transient hypotension, UTI (urinary tract infection) Disposition: HOME/ ROUTINE Disposition Time: 17:35 Patient Plan: Discharge Patient Problems: Current Active Problems Problem Status Onset Transient hypotension Acute Condition: IMPROVED Discharge Instructions (ExitCare): Low Blood Pressure (DC), Urinary Tract Infection, Adult (DC) Print Language: GIBR[place] Additional Instructions: All medical record entries made by the Scribe were at my direction and perso mitch dictated by me. I have reviewed the chart and agree that the record accurately reflects my personal performance of the history, physical exam, medical decision making, and the department course for this patient. I have also personally directed, reviewed, and agree with the discharge instructions and disposition. Please take medication as prescribed Please follow up with your urologist in 1 week If symptoms persist or worsen, please return to the Emergency Room for reevaluation Prescriptions: Cephalexin [cephalexin] 500 mg PO BID 7 Days #14 cap Referrals: Juan Murray MD [Staff Provider] - Follow up with primary Forms: [facility] [facility] ([place]ian), WORK NOTE
[2018-10-08 13:41] LABS: BASO # 0.01 K/mm3 (0.0-2.0); BASO % 0.1 % (0.0-3.0); EOS % 0.3 % (1.5-5.0); HEMOGLOBIN 11.6 g/dL (14.0-18.0); LYMPH # 1.2 (1.2-3.4); LYMPH % 10.3 % (22.0-35.0); MEAN CELL VOLUME 85.2 fl (80.0-105.0); MEAN CORPUSCULAR HEMOGLOBIN 28.6 pg (25.0-35.0); MEAN CORPUSCULAR HGB CONC 33.5 g/dl (31.0-37.0); MEAN PLATELET VOLUME 8.7 fl (7.0-11.0); MONO # 0.6 (0.1-0.6); MONO % 4.7 % (1.0-6.0); RBC 4.06 10^6/uL (3.5-6.1); RED CELL DISTRIBUTION WIDTH 13.7 % (11.5-14.5); WHITE BLOOD COUNT 11.9 10^3/uL (4.5-11.0)
--- NOTE | 2018-10-08 13:46 | RAD ---
Date of service: 10/08/2018 HISTORY: dizziness COMPARISON: Comparison is made with 07/29/2018 FINDINGS: LUNGS: No active pulmonary disease. PLEURA: No significant pleural effusion identified, no pneumothorax apparent. CARDIOVASCULAR: No aortic atherosclerotic calcification present. Normal cardiac size. No pulmonary vascular congestion. OSSEOUS STRUCTURES: No significant abnormalities. VISUALIZED UPPER ABDOMEN: Normal. OTHER FINDINGS: None. IMPRESSION: No active disease.
[2018-10-08 13:51] LABS: ALBUMIN 3.2 g/dL (3.0-4.8); ALT/SGPT 10 U/L (7-56); AST/SGOT 17 U/L (17-59); BLOOD UREA NITROGEN 12 mg/dL (7-21); CALCIUM 8.6 mg/dL (8.4-10.5); GFR NON-AFRICAN AMERICAN > 60
--- NOTE | 2018-10-08 13:56 | CARD ---
APPROVED REPORT Date of service: 10/08/2018 EKG Measurement Heart [id number] <Conclusion> Sinus rhythm with premature supraventricular complexes Low voltage QRS Borderline ECG
[2018-10-08 14:04] LABS: TROPONIN I < 0.01 ng/mL
[2018-10-08 14:49] VITALS: O2SAT 98
[2018-10-08] MEDS ORDERED: Sodium Chloride 0.9% 1,000 ML IV STA (14:52)
[2018-10-08 17:22] LABS: PH,URINE 6.5 (4.7-8.0); URINE APPEARANCE TURBID (CLEAR); URINE BILIRUBIN NEGATIVE (NEGATIVE); URINE BLOOD LARGE (NEGATIVE); URINE COLOR YELLOW (YELLOW); URINE GLUCOSE (UA) NEGATIVE (NEGATIVE); URINE LEUKOCYTE ESTERASE LARGE Leu/uL (NEGATIVE); URINE PROTEIN >=300 mg/dL (<30 mg/dL); URINE UROBILINOGEN 0.2 E.U./dL (<1 E.U./dL)
[2018-10-08 17:32] LABS: URINE RBC 25 - 30 /hpf (0-2); URINE WBC TNTC /hpf (0-6)
[2018-10-08 17:33] LABS: URINE BACTERIA FEW /hpf
[2018-10-08 18:22] VITALS: BP 141/78; PULSE 79; RESP 18
== END 2018-10-08 18:30 | disposition home or self-care (01) ==
LOC: ED 12:12
DX: N39.0 Urinary tract infection, site not specified (principal); I95.9 Hypotension, unspecified; I10 Essential (primary) hypertension; Z87.891 Personal history of nicotine dependence; Z85.46 Personal history of malignant neoplasm of prostate
CPT/HCPCS: 71045; 80053; 81001; 83735; 84484; 85025; 87086; 87804; 93005; 96360; 99283; J7030